=== PATIENT | male | born 1960 | race Caucasian/White ===

== ENCOUNTER 2016-04-21 06:32 | Inpatient (IN) | payer OTHER ==
[~2016-04-21] VITALS: Ht 162.6 cm; Wt 77.8 kg
[~2016-04-21 06:32] MED LIST: BUSP5 PO; CEPH500 PO; CITA20 PO; DILA2TAB2 PO; IBUP600T26 PO; OXYC-68 PO; SIMV10 PO
[2016-04-21 06:54] VITALS: BP 146/85; PULSE 104; RESP 20; TEMP 98.1; O2SAT 95
[2016-04-21 07:29] LABS: AUTOMATED NEUTROPHIL # 5.5 TH/MM3 (1.8-7.7); BASOPHIL # 0.1 TH/MM3 (0-0.2); BASOPHIL % 0.3 % (0.0-2.0); EOSINOPHIL # 0.1 TH/MM3 (0-0.4); EOSINOPHIL % 0.4 % (0.0-4.0); HEMATOCRIT 46.6 % (39.0-51.0); LYMPH % 71.1 % (9.0-44.0); LYMPHOCYTE # 14.9 TH/MM3 (1.0-4.8); MEAN CELL VOLUME 92.9 FL (80.0-100.0); MEAN CORPUSCULAR HEMOGLOBIN 31.4 PG (27.0-34.0); MEAN CORPUSCULAR HGB CONC 33.7 % (32.0-36.0); MONO % 1.9 % (0.0-8.0); NEUT % 26.3 % (16.0-70.0); PLATELET COUNT 54 TH/MM3 (150-450); RED BLOOD COUNT 5.02 MIL/MM3 (4.50-5.90); RED CELL DISTRIBUTION WIDTH 14.9 % (11.6-17.2)
[2016-04-21] MEDS ORDERED: SODIUM CHLOR 0.9% 1000 ML INJ 1,000 ML IV ONE (07:30)
[2016-04-21 07:34] LABS: HEMO FLAGS AUTO DIFF
[2016-04-21 07:46] LABS: ALT (GPT) 41 U/L (12-78); ANION GAP 13 MEQ/L (5-15); AST (GOT) 34 U/L (15-37); BICARBONATE 22.5 MEQ/L (21.0-32.0); BLOOD UREA NITROGEN 8 MG/DL (7-18); CHLORIDE 100 MEQ/L (98-107); GLOMERULAR FILTRATION RATE 98 ML/MIN (>89); SODIUM (NA) 135 MEQ/L (136-145)
[2016-04-21 07:49] LABS: ALKALINE PHOSPHATASE 81 U/L (45-117); TOTAL BILIRUBIN ADULT 0.6 MG/DL (0.2-1.0)
[2016-04-21 07:51] LABS: AMPHETAMINE, URINE NEG (NEG); BARBITURATES, URINE NEG (NEG); COCAINE, URINE NEG (NEG)
--- NOTE | 2016-04-21 08:21 | PD ---
HPI Chief Complaint: Suicide Ideation/Attempt Time Seen by Provider: 06:59 Travel History International Travel<30 days: No Contact w/Intl Traveler<30days: No Traveled to known affect area: No History of Present Illness HPI 56-year-old male came to the emergency room for intentional overdosing on a bunch of Percocet and Dilaudid last night along with alcohol with the intention of never waking up. Patient recently was asked to leave his girlfriend's house. Patient is very depressed and does not want to be homeless again and hence he did this act. He continues to feel the same way. He was slightly tachycardic in triage. Denies any drug abuse history. He is otherwise relatively healthy. Patient denies of any auditory hallucinations or homicidal ideations. Patient has not been taking any medications currently. [facility] Past Medical History Narrative Medical List of his past medical, surgical, social and family history is reviewed from the nursing note. Autoimmune Disease: No Anxiety: Yes Depression: Yes Heart Rhythm Problems: Yes (wps) Cancer: No High Cholesterol: No Diabetes: Yes (BORDERLINE DIABETIC) Patient Takes Glucophage: No Endocrine: Yes Gastrointestinal Disorders: No Genitourinary: Yes (Left sided hydronephrosis) Hiatal Hernia: Yes Hypertension: Yes Immune Disorder: No Implanted Vascular Access Dvce: No Musculoskeletal: No Neurologic: No Psychiatric: Yes Reproductive: No Respiratory: No Renal Failure: Yes Influenza Vaccination: No Past Surgical History Abdominal Surgery: Yes (UMBILICAL REPAIR) Gynecologic Surgery: Yes (urostomy placement 2014) Tonsillectomy: Yes Other Surgery: Yes (NEPHROSTOMY) Social History Alcohol Use: Yes (BINGED LAST DAY) Tobacco Use: Yes (18 CIGS/DAY) Substance Use: No Allergies-Medications (Allergen,Severity, Reaction): Coded Allergies: No Known Allergies (Unverified , 03/06/15) Comments No known drug allergies. Reported Meds & Prescriptions Reported Meds & Active Scripts Active No Active Prescriptions or Reported Medications Narrative Medication Awaiting for the nurse to update the medical reconciliation list. Review of Systems Except as stated in HPI: all other systems reviewed are Neg Physical Exam Narrative GENERAL: Awake, alert, flat affect, no obvious distress SKIN: Warm and dry. HEAD: Atraumatic. Normocephalic. EYES: Pupils equal and round. No scleral icterus. No injection or drainage. ENT: No nasal bleeding or discharge. Mucous membranes pink and moist. NECK: Trachea midline. No JVD. CARDIOVASCULAR: Regular rate and rhythm. No murmur appreciated. RESPIRATORY: No accessory muscle use. Clear to auscultation. Breath sounds equal bilaterally. GASTROINTESTINAL: Abdomen soft, non-tender, nondistended. Hepatic and splenic margins not palpable. MUSCULOSKELETAL: No obvious deformities. No clubbing. No cyanosis. No edema. NEUROLOGICAL: Awake and alert. No obvious cranial nerve deficits. Motor grossly within normal limits. Normal speech. PSYCHIATRIC: Appropriate mood and affect; insight and judgment normal. Obviously depressed Data Data Last Documented VS Vital Signs Date Time Temp Pulse Resp B/P Pulse Ox O2 Delivery O2 Flow Rate FiO2 04/21/16 12:50 97.3 110 20 154/83 96 Room Air Orders Complete Blood Count With Diff (04/21/16 06:59) Comprehensive Metabolic Panel (04/21/16 06:59) Psych Screen (04/21/16 06:59) Drug Screen, Random Urine (04/21/16 06:59) Alcohol (Ethanol) (04/21/16 06:59) Salicylates (Aspirin) (04/21/16 07:24) Tylenol (Acetaminophen) (04/21/16 07:24) Sodium Chlor 0.9% 1000 Ml Inj (Ns 1000 M (04/21/16 07:30) Urinalysis - C+S If Indicated (04/21/16 08:13) Chest, Single Ap (04/21/16 ) Electrocardiogram (04/21/16 ) Tylenol (Acetaminophen) (04/21/16 10:45) Salicylates (Aspirin) (04/21/16 10:45) Admit Order (Ed Use Only) (04/21/16 ) Admit To Inpatient Psych (04/21/16 ) Code Status (04/21/16 15:10) Vital Signs (Adult) [place].Q12H.E (04/21/16 15:10) Activity Oob Ad Suzi (04/21/16 15:10) Level Of Observation (Psych) (04/21/16 15:10) Acetaminophen (Tylenol) (04/21/16 15:15) Magnesium Hydroxide Liq (Milk Of Magnesi (04/21/16 15:15) Al-Mag Hy-Si 40-40-4 Mg/Ml Liq (Mag-Al P (04/21/16 15:15) Nicotine 21 Mg Patch.24 Hr (Habitrol 21 (04/21/16 15:15) Basic Metabolic Panel (Bmp) (04/22/16 06:00) Lipid Profile (04/22/16 06:00) Hemoglobin (Hgb) A1c (04/22/16 06:00) Remove Old Patch (04/22/16 09:00) Labs Laboratory Tests Test 04/21/16 04/21/16 04/21/16 07:12 07:30 09:50 White Blood Count 21.0 TH/MM3 Red Blood Count 5.02 MIL/MM3 Hemoglobin 15.7 GM/DL Hematocrit 46.6 % Mean Corpuscular Volume 92.9 FL Mean Corpuscular Hemoglobin 31.4 PG Mean Corpuscular Hemoglobin 33.7 % Concent Red Cell Distribution Width 14.9 % Platelet Count 54 TH/MM3 Mean Platelet Volume 7.7 FL Neutrophils (%) (Auto) 26.3 % Lymphocytes (%) (Auto) 71.1 % Monocytes (%) (Auto) 1.9 % Eosinophils (%) (Auto) 0.4 % Basophils (%) (Auto) 0.3 % Neutrophils # (Auto) 5.5 TH/MM3 Lymphocytes # (Auto) 14.9 TH/MM3 Monocytes # (Auto) 0.4 TH/MM3 Eosinophils # (Auto) 0.1 TH/MM3 Basophils # (Auto) 0.1 TH/MM3 CBC Comment AUTO DIFF Differential Total Cells 100 Counted Neutrophils % (Manual) 22 % Lymphocytes % 75 % Monocytes % 1 % Basophils % 2 % Neutrophils # (Manual) 4.6 TH/MM3 Differential Comment FINAL DIFF MANUAL Smudge Cells PRESENT Platelet Estimate LOW Platelet Morphology Comment NORMAL Sodium Level 135 MEQ/L Potassium Level 4.0 MEQ/L Chloride Level 100 MEQ/L Carbon Dioxide Level 22.5 MEQ/L Anion Gap 13 MEQ/L Blood Urea Nitrogen 8 MG/DL Creatinine 0.81 MG/DL Estimat Glomerular Filtration 98 ML/MIN Rate Random Glucose 137 MG/DL Calcium Level 8.2 MG/DL Total Bilirubin 0.6 MG/DL Aspartate Amino Transf 34 U/L (AST/SGOT) Alanine Aminotransferase 41 U/L (ALT/SGPT) Alkaline Phosphatase 81 U/L Total Protein 7.2 GM/DL Albumin 3.5 GM/DL Acetaminophen Level LESS THAN 2.0 LESS THAN 2.0 MCG/ML MCG/ML Ethyl Alcohol Level 133 MG/DL Urine Color LIGHT-YELLOW Urine Turbidity CLEAR Urine pH 5.5 Urine Specific [place] 1.006 Urine Protein NEG mg/dL Urine Glucose (UA) 70 mg/dL Urine Ketones NEG mg/dL Urine Occult Blood NEG Urine Nitrite NEG Urine Bilirubin NEG Urine Urobilinogen LESS THAN 2.0 MG/DL Urine Leukocyte Esterase NEG Urine RBC LESS THAN 1 /hpf Urine WBC 1 /hpf Microscopic Urinalysis Comment CULT NOT INDICATED Salicylates Level 4.1 MG/DL 3.0 MG/DL Urine Opiates Screen NEG Urine Barbiturates Screen NEG Urine Amphetamines Screen NEG Urine Benzodiazepines Screen NEG Urine Cocaine Screen NEG Urine Cannabinoids Screen NEG MDM Medical Decision Making Medical Screen Exam Complete: Yes Emergency Medical Condition: Yes Medical Record Reviewed: Yes Interpretation(s) Twelve-lead EKG was reviewed by me. Normal sinus rhythm, normal axis, tachycardia, nonspecific ST-T wave changes. Heart rate of 104 bpm. Differential Diagnosis Suicidal ideation, major depression, attempted suicide by overdose Narrative Course 8:19 AM the test results are back and patient has leukocytosis with no bandemia. Patient is afebrile and hence I am unsure about the etiology of the leukocytosis. Chemistry was within normal limits. Drug screen was negative and Tylenol and salicylate levels were within normal limits. Alcohol level is elevated. I will have the nurse call poison control in order to get the timeframe for medical clearance. Eventually patient will need to be seen by psych and be admitted for the suicidal ideations. I've given him 1 L of IV fluid bolus. Patient has a sitter. 10:37 AM as per poison control patient should be observed for 4 hours and a repeat Tylenol and salicylate levels in 4 hours. There is one pending at 10:45 AM. If that is within normal limit patient will be medically cleared. Procedures EKG Prior to Arrival: No Diagnosis Primary Impression: Major depression Qualified Code: F33.2 - Severe episode of recurrent major depressive disorder , without psychotic features Additional Impression: Overdose Qualified Code: T50.902A - Overdose, intentional self-harm, initial encounter Scripts No Active Prescriptions or Reported Meds Regis Ulrich MD Apr 21, 2016 08:21
[2016-04-21 08:51] LABS: BASOPHILS 2 % (0-2); NEUTROPHIL # MANUAL DIFF 4.6 TH/MM3 (1.8-7.7); PLATELET ESTIMATE SMEAR LOW (NORMAL); PLATELET MORPHOLOGY NORMAL (NORMAL); POLYS (SEG NEUTROPHILS) 22 % (16-70); SCAN/DIFF FINAL DIFF MANUAL; SMUDGE CELLS PRESENT PRESENT; WBC DIFF SAMPLE 100
[2016-04-21 08:59] LABS: BLOOD, URINE NEG (NEG); COMMENT (UR) CULT NOT INDICATED; CULTURE IF INDICATED CULT NOT INDICATED; GLUCOSE,URINE 70 mg/dL (NEG); KETONE, URINE NEG (NEG); NITRITE,URINE NEG (NEG); PH, URINE 5.5 (5.0-8.5); URINE COLOR LIGHT-YELLOW (YELLW/STRAW)
--- NOTE | 2016-04-21 08:59 | RADRPT ---
EXAM DATE/TIME: 04/21/2016 08:30 [facility] COMPARISON: No previous studies available for comparison. INDICATIONS : Patient states he was trying to commit suicide last night. He has had back pain for seven months. MEDICAL HISTORY : Renal failure, chronic. Hypertension. Diabetes mellitus type 2. SURGICAL HISTORY : Left side renal drain. ENCOUNTER: Initial ACUITY: 1 day PAIN SCORE: 2/10 LOCATION: L-spine FINDINGS: A single view of the chest demonstrates the lungs to be symmetrically aerated without evidence of mas s, infiltrate or effusion. The cardiomediastinal contours are unremarkable. Osseous structures are intact. CONCLUSION: No acute disease. Omar Cote MD on April 21, 2016 at 8:56 Board Certified Radiologist. This report was verified electronically.
[2016-04-21 12:50] VITALS: BP 154/83; PULSE 110; RESP 20; TEMP 97.3; O2SAT 96
--- NOTE | 2016-04-21 15:10 | PD ---
History of Present Illness Chief Complaint: Suicide Ideation/Attempt Time Seen by Provider: 14:25 Travel History International Travel<30 Days: No Contact w/Intl Traveler<30days: No Known affected area: No Legal Status Legal Status: Caba Act Caba Act Signed By: Trevin Caba Act Comment: BA signed by: ARNULFO LANDAVERDE Badge#[id number], Case#[id number], , [id number] History of Present Illness: History of Present Illness HPI 56-year-old male with a reported history of anxiety and depression who presents under a BA initiated by ARNULFO. As per the BA report; Flor stated that he wanted to kill himself due to being kicked out of his residence. He state he took a bunch of sleeping pills as well as alcohol with the intention of never waking up" . On arrival to Ed he presented with BAL of 133. He was medically cleared and has been monitored in [facility]. he has not presented any behavioral concerns or any suicidality. As per EMR review he has not had previous contact with [facility] psychiatry department. Patient is awake . Alert and oriented male who appears stated age. He is dressed in [facility] and his hygiene is fair.Affect is restricted. Speech is clear and logical. Mood is depressed with expressed hopelessness regarding his future. There is no reported hallucinations, delusions or paranoia. Sleeping well. Low level of energy. Concentration and attention are not impaired. He also verbalizes his regret at this failed suicidal attempt which he had been planning for 2 days after his girlfriend asked him to leave the house and he became homeless. Other stressors include loosing his job after his car broke down. His stepmother who lives in the area told him that she did not have any space in her home for him. In terms of psychiatric history he received treatment at the [facility] for approximately one year . he does not remember the name of the medications he was prescribed. he stopped treatment 6 months ago because he felt better. Denies previous suicide attempt. PFSH Past Medical History Autoimmune Disease: No Anxiety: Yes Depression: Yes Heart Rhythm Problems: Yes (wps) Cancer: No High Cholesterol: No Diabetes: Yes (BORDERLINE DIABETIC) Patient Takes Glucophage: No Endocrine: Yes Gastrointestinal Disorders: No Genitourinary: Yes (Left sided hydronephrosis) Hiatal Hernia: Yes Hypertension: Yes Immune Disorder: No Implanted Vascular Access Dvce: No Musculoskeletal: No Neurologic: No Psychiatric: Yes Reproductive: No Respiratory: No Renal Failure: Yes Influenza Vaccination: No Past Surgical History Abdominal Surgery: Yes (UMBILICAL REPAIR) Gynecologic Surgery: Yes (urostomy placement 2014) Tonsillectomy: Yes Other Surgery: Yes (NEPHROSTOMY) Psychiatric History Psychiatric History Hx Psychiatric Treatment: Says he has been seen by the [facility] in the past in [facility]. History of Inpatient Treatment: No Guns or firearms in home: No Social History Born in [place]. Moved to [place] as a teenager. Served 3 and half years in the [employer]. several years ago. 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 Most recently was working at [employer] in [employer]. He has no children. Hx Alcohol Use: Yes (BINGED LAST DAY) Hx Tobacco Use: Yes (18 CIGS/DAY) Hx Substance Use: Yes (Alcohol) Substance Use Type: Alcohol (Long hx of alcohol abuse. Had been sober x 2 years. ) Hx of Substance Use Treatment: Yes Allergies-Medications (Allergen,Severity, Reaction): Coded Allergies: No Known Allergies (Unverified , 03/06/15) Reported Meds & Prescriptions Reported Meds & Active Scripts Active No Active Prescriptions or Reported Medications Review of Systems Except as stated in HPI: all other systems reviewed are Neg Psychiatric: COMPLAINS OF: Depression, Suicidal Ideation Exam Alert: Yes [place]: Person (ox4) Mood: Depressed Affect: Restricted Speech: Clear, Logical Eye Contact: Indirect Memory Intact: Comment (no gross abnormality) Hallucinations: Other (negative) Delusions: No Suicidal: Ideation (taking opills with ETOH. ) Homicidal: Ideation (negative) Insight/Judgement poor. poor MDM Medical Decision Making Medical Record Reviewed: Yes Assessment/Plan 56 year old male under a BA after he took sleeping pills as well as alcohol with intent to never wake up. This morning he continues to endorse suicidal ideation as well as regret for not having . He nevertheless accepts treatment at this time. He remains under a BA. Recommend inpatient psychiatric hospitalization to maintain safety, initiate medications and stabilize mood. Orders Complete Blood Count With Diff (04/21/16 06:59) Comprehensive Metabolic Panel (04/21/16 06:59) Psych Screen (04/21/16 06:59) Drug Screen, Random Urine (04/21/16 06:59) Alcohol (Ethanol) (04/21/16 06:59) Salicylates (Aspirin) (04/21/16 07:24) Tylenol (Acetaminophen) (04/21/16 07:24) Sodium Chlor 0.9% 1000 Ml Inj (Ns 1000 M (04/21/16 07:30) Urinalysis - C+S If Indicated (04/21/16 08:13) Chest, Single Ap (04/21/16 ) Electrocardiogram (04/21/16 ) Tylenol (Acetaminophen) (04/21/16 10:45) Salicylates (Aspirin) (04/21/16 10:45) Diet Regular Basic (04/21/16 Lunch) Results Vital Signs Date Time Temp Pulse Resp B/P Pulse Ox O2 Delivery O2 Flow Rate FiO2 04/21/16 12:50 97.3 110 20 154/83 96 Room Air 04/21/16 06:54 98.1 104 20 146/85 95 Room Air Laboratory Tests Test 04/21/16 04/21/16 04/21/16 07:12 07:30 09:50 White Blood Count 21.0 Red Blood Count 5.02 Hemoglobin 15.7 Hematocrit 46.6 Mean Corpuscular Volume 92.9 Mean Corpuscular Hemoglobin 31.4 Mean Corpuscular Hemoglobin 33.7 Concent Red Cell Distribution Width 14.9 Platelet Count 54 Mean Platelet Volume 7.7 Neutrophils (%) (Auto) 26.3 Lymphocytes (%) (Auto) 71.1 Monocytes (%) (Auto) 1.9 Eosinophils (%) (Auto) 0.4 Basophils (%) (Auto) 0.3 Neutrophils # (Auto) 5.5 Lymphocytes # (Auto) 14.9 Monocytes # (Auto) 0.4 Eosinophils # (Auto) 0.1 Basophils # (Auto) 0.1 CBC Comment AUTO DIFF Differential Total Cells 100 Counted Neutrophils % (Manual) 22 Lymphocytes % 75 Monocytes % 1 Basophils % 2 Neutrophils # (Manual) 4.6 Differential Comment FINAL DIFF MANUAL Smudge Cells PRESENT Platelet Estimate LOW Platelet Morphology Comment NORMAL Sodium Level 135 Potassium Level 4.0 Chloride Level 100 Carbon Dioxide Level 22.5 Anion Gap 13 Blood Urea Nitrogen 8 Creatinine 0.81 Estimat Glomerular Filtration 98 Rate Random Glucose 137 Calcium Level 8.2 Total Bilirubin 0.6 Aspartate Amino Transf 34 (AST/SGOT) Alanine Aminotransferase 41 (ALT/SGPT) Alkaline Phosphatase 81 Total Protein 7.2 Albumin 3.5 Acetaminophen Level LESS THAN 2.0 LESS THAN 2.0 Ethyl Alcohol Level 133 Urine Color LIGHT-YELLOW Urine Turbidity CLEAR Urine pH 5.5 Urine Specific [place] 1.006 Urine Protein NEG Urine Glucose (UA) 70 Urine Ketones NEG Urine Occult Blood NEG Urine Nitrite NEG Urine Bilirubin NEG Urine Urobilinogen LESS THAN 2.0 Urine Leukocyte Esterase NEG Urine RBC LESS THAN 1 Urine WBC 1 Microscopic Urinalysis Comment CULT NOT INDICATED Salicylates Level 4.1 3.0 Urine Opiates Screen NEG Urine Barbiturates Screen NEG Urine Amphetamines Screen NEG Urine Benzodiazepines Screen NEG Urine Cocaine Screen NEG Urine Cannabinoids Screen NEG Diagnosis Primary Impression: Major depression Additional Impression: Overdose Admitting Information Admitting Physician Requests: Admit (Dr. Langston) Prescriptions No Active Prescriptions or Reported Meds Problem Qualifiers Primary Impression: Major depression Qualified Code: F33.2 - Severe episode of recurrent major depressive disorder , without psychotic features Additional Impression: Overdose Qualified Code: T50.902A - Overdose, intentional self-harm, initial encounter Mimi Zuñiga Apr 21, 2016 15:10
[2016-04-21] MEDS ORDERED: ACETAMINOPHEN 325 MG TAB PO PRN (15:15)
[2016-04-21] MEDS ORDERED: MAGNESIUM HYDROXIDE SUSP 30 ML CUP PO PRN (15:15)
[2016-04-21] MEDS ORDERED: ALUMINUM/MAGNESIUM/SIMETH 30 ML CUP PO PRN (15:15)
[2016-04-21] MEDS: NICOTINE 21 MG/24 HR PATCH T-DERMAL SCH (15:50)
[2016-04-21 16:28] VITALS: BP 149/78; PULSE 100; RESP 16; TEMP 97.8; O2SAT 94
[2016-04-21] MEDS ORDERED: FLUMAZENIL 0.5 MG/5 ML VIAL IV PUSH PRN (17:00)
[2016-04-21] MEDS ORDERED: LORazepam 2 MG/ML VIAL IM PRN ×4 (17:00)
[2016-04-21] MEDS ORDERED: LORazepam 1 MG TAB PO PRN (17:00)
[2016-04-21] MEDS ORDERED: LORazepam 2 MG TAB PO PRN (17:00)
[2016-04-21 20:06] VITALS: BP 134/83; PULSE 88; RESP 16; TEMP 97.7; O2SAT 98
[2016-04-22 05:39] VITALS: BP 118/71; PULSE 88; RESP 18; TEMP 97.6; O2SAT 95
[2016-04-22] MEDS: NICOTINE 21 MG/24 HR PATCH T-DERMAL SCH (09:00)
[2016-04-22] MEDS: REMOVE OLD PATCH T-DERMAL SCH (09:00)
[2016-04-22] MEDS: THIAMINE HCL 100 MG TAB PO SCH (09:20)
[2016-04-22] MEDS: FOLIC ACID 1 MG TAB PO SCH (09:20)
[2016-04-22 09:39] LABS: ANION GAP 8 MEQ/L (5-15); BICARBONATE 24.4 MEQ/L (21.0-32.0); BLOOD UREA NITROGEN 11 MG/DL (7-18); CHLORIDE 106 MEQ/L (98-107); GLOMERULAR FILTRATION RATE 80 ML/MIN (>89); POTASSIUM 4.3 MEQ/L (3.5-5.1); SODIUM (NA) 138 MEQ/L (136-145)
[2016-04-22 09:41] LABS: HDL CHOLESTEROL 50.5 MG/DL (40.0-60.0); LDL CHOLESTEROL 54 MG/DL (0-99)
--- NOTE | 2016-04-22 10:03 | HHI.HP ---
Provisional Diagnosis Admission Date Apr 21, 2016 at 15:14 [facility] I. Major depression chronic recurrent status post overdose [facility]. Passive-dependent trait [facility] III. Please see the emergency room evaluation history of back pain [facility] IV. Moderate stress difficulty coping [facility] V. GAF of 45 Certification of Person's Competence To Provide Express and Informed Consent I have personally examined Flor Sheldon , a person being served at [facility] on, Apr 22, 2016 09:55. Express and informed consent means consent voluntarily given in writing, by a competent person, after sufficient explanation and disclosure of the subject matter involved to enable the person to make a knowing and willful decision without any element of force, fraud, deceit, duress, or other form of constraint or coercion. This person is 18 years of age or older, is not now known to be incompetent to consent to treatment with a guardian advocate, and does not have a health care surrogate or proxy currently making medical treatment decisions. I have found this person to be one of the following: [x] Competent to provide express and informed consent, as defined above, for voluntary admission to this facility and is competent to provide express and informed consent for treatment. He/she has the consistent capacity to make well reasoned, willful, and knowing decisions concerning his or her medical or mental health treatment. The person fully and consistently understands the purpose of the admission for examination/placement and is fully capable of personally exercising all rights assured under [place] [] Incompetent to provide express and informed consent to voluntary admission, and this is incompetent to provide express and informed consent to treatment. The person must be transferred to involuntary status and a petition for a guardian advocate filed with the Circuit Court. [] Refusing to provide express and informed consent to voluntary admission but is competent to provide express and informed consent for treatment. The person must be discharged or transferred to involuntary status. Form shall be completed within 24 hours of a person's arrival at the receiving facility and filed in the clinical record of each person: 1. Admitted on a voluntary basis 2. Permitted to provide express and informed consent to his/her own treatment 3. Allowed to transfer from involuntary to voluntary status 4. Prior to permitting a person to consent to his or her own treatment after having been previously found incompetent to consent to treatment. History of Present Illness Capacity: Has Capacity HPI This is a 56-year-old white male who claimed that he has been feeling depressed for the last several months. He was kicked out of his residence. He also has a back pain his kidney was removed he also broke up with his girlfriend. He has no place to go to he has no car he might lose his job he cannot go back and forth to work. He has been sleeping okay but his appetite is down and at that point he decided to end his misery and drank along with that he took overdose on painkillers. He is unhappy that he is still alive. But he feels safe in the hospital and [facility]. No behavior or management problem reported. He is compliant in taking medication and willing to sign voluntary Review of Systems Except as stated in HPI: all other systems reviewed are Neg Musculoskeletal: COMPLAINS OF: Muscle aches, Back pain Psychiatric: COMPLAINS OF: Anxiety, Mood changes, Depression Past Psych History Psychological trauma history Patient denied any physical verbal or sexual abuse growing up Violence risk - others (6 mos) Denied any violence Violence risk - self (6 mos) Patient felt like wanting to end his life and wanted to overdose with pain killer and alcohol Substance Abuse History Drugs/Alcohol past 12 months Does admit to alcohol abuse he claimed that he was sober for 2 years Past Family Social History Coded Allergies: No Known Allergies (Unverified , 03/06/15) No Active Prescriptions or Reported Meds Current Medications Medications (Trade) Dose Ordered Sig/Clemente Route Start Time Stop Time Status Last Admin (Tylenol) 650 mg Q4H PRN PO 04/21/16 15:15 (Milk Of Magnesia Liq) 30 ml DAILY PRN PO 04/21/16 15:15 (Mag-Al Plus Susp Liq) 30 ml Q6H PRN PO 04/21/16 15:15 (Habitrol 21 Mg Patch.24 Hr) 1 patch DAILY T-DERMAL 04/21/16 15:15 04/22/16 09:00 Miscellaneous Information 1 DAILY T-DERMAL 04/22/16 09:00 04/22/16 09:00 (Romazicon Inj) 0.2 mg Q1M PRN IV PUSH 04/21/16 17:00 (Ativan) 1 mg Q4H PRN PO 04/21/16 17:00 04/21/16 18:53 (Ativan Inj) 1 mg Q4H PRN IM 04/21/16 17:00 (Ativan) 2 mg Q2H PRN PO 04/21/16 17:00 (Ativan Inj) 2 mg Q2H PRN IM 04/21/16 17:00 (Ativan Inj) 2 mg Q1H PRN IM 04/21/16 17:00 (Ativan Inj) 2 mg Q15M PRN IM 04/21/16 17:00 (Vitamin B1) 100 mg DAILY PO 04/22/16 09:00 04/22/16 09:20 (Folate) 1 mg DAILY PO 04/22/16 09:00 04/22/16 09:20 Family History Positive for depression and alcoholism Social History Patient was born in [place]. He has 6 sisters. He was close to his stepmother. He denied any physical verbal or sexual abuse growing up his childhood was okay. 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 He was first time at 28 lasted for 4 years no children. Then he was living with her common-law old for 16 years no children and she couple of years ago. Patient had a history of alcohol abuse ever since he was 13 has been in trouble with the law he has been through rehabilitation once he was sober for 2 years and started to drink again. [facility] and [facility]. Patient's Strengths (min. 2) Patient is cooperative willing to sign voluntary and take the medication Physical Exam Please see the emergency room evaluation other than back pain patient denied any other physical problem he was medically clear to be admitted to the psychiatric unit his vital signs are stable Vital Signs Vital Signs Date Time Temp Pulse Resp B/P Pulse Ox O2 Delivery O2 Flow Rate FiO2 04/22/16 05:39 97.6 88 18 118/71 95 04/21/16 12:50 Room Air Mental Status Examination This is a 56-year-old white male who looks about the same as his stated age was alert oriented 3 cooperative casually dressed his speech was slow without any evidence of loose associations or flights of ideas or pressure speech his mood was described as feeling depressed frustrated unable to cope with the stress pain not having place to live nowhere to go to his job. He could be reassured he feels safe in the hospital. He denied any auditory or visual hallucinations. Denied any paranoid delusion. He seems to be of low average intelligence with poor recent memory his insight is fair and his judgment seems to be okay on hypothetical situation. His concentration is okay his language is okay are normal his fund of knowledge is average and his gait is normal Assessment & Plan Problem List: (1) Major depression ICD Code: F32.9 Assessment & Plan Estimated LOS: 5 days. This is a 56-year-old white male who was admitted following overdose on pain killer and alcohol. Has been feeling depressed we'll stabilize him on the medication is willing [facility] Admit observe evaluate and treatment. He will participate in all the therapeutic activity on the floor. We will start him on Cymbalta We will assess social work nurse to assist in aftercare and discharge planning. Patient is willing to sign voluntary. Vital signs every shift. Medical consult for pain management. Request HC Surrog/Guard Advoc?: No Problem Qualifiers (1) Major depression: Qualified Code: F33.2 - Severe episode of recurrent major depressive disorder, without psychotic features Nhan Duong MD Apr 22, 2016 10:03
[2016-04-22] MEDS ORDERED: busPIRone HCL 10 MG TAB PO PRN (10:15)
[2016-04-22 11:44] LABS: AUTOMATED NEUTROPHIL # 4.9 TH/MM3 (1.8-7.7); BASOPHIL % 0.2 % (0.0-2.0); EOSINOPHIL # 0.1 TH/MM3 (0-0.4); EOSINOPHIL % 0.7 % (0.0-4.0); HEMATOCRIT 45.3 % (39.0-51.0); LYMPH % 48.2 % (9.0-44.0); LYMPHOCYTE # 4.9 TH/MM3 (1.0-4.8); MEAN CELL VOLUME 93.3 FL (80.0-100.0); MEAN CORPUSCULAR HEMOGLOBIN 31.5 PG (27.0-34.0); MEAN CORPUSCULAR HGB CONC 33.7 % (32.0-36.0); MONO % 3.1 % (0.0-8.0); NEUT % 47.8 % (16.0-70.0); PLATELET COUNT 44 TH/MM3 (150-450); RED BLOOD COUNT 4.86 MIL/MM3 (4.50-5.90); RED CELL DISTRIBUTION WIDTH 14.7 % (11.6-17.2); WHITE BLOOD COUNT 10.2 TH/MM3 (4.0-11.0)
[2016-04-22 11:47] LABS: HEMO FLAGS AUTO DIFF
[2016-04-22 13:26] LABS: HEMOGLOBIN A1a 1.1 %; HEMOGLOBIN A1b 1.7 %; HEMOGLOBIN Ao 84.1 %; HEMOGLOBIN LA1C 2.2 %; HEMOGLOBIN P3 3.9 %
[2016-04-22] MEDS: CYCLOBENZAPRINE HCL 10 MG TAB PO SCH ×2 (14:00→21:15)
[2016-04-22 14:16] LABS: BANDS 10 % (0-6); EOSINOPHILS 1 % (0-4); NEUTROPHIL # MANUAL DIFF 4.6 TH/MM3 (1.8-7.7); PLATELET ESTIMATE SMEAR LOW (NORMAL); PLATELET MORPHOLOGY NORMAL (NORMAL); POLYS (SEG NEUTROPHILS) 35 % (16-70); SCAN/DIFF FINAL DIFF MANUAL; WBC DIFF SAMPLE 100
[2016-04-22] MEDS: DULoxetine HCl DR 60 MG CAP PO SCH (14:23)
[2016-04-22] MEDS: ACETAMINOPHEN/HYDROcodone 325 MG/10 MG TAB PO PRN ×2 (14:24→21:16)
--- NOTE | 2016-04-22 16:17 | PD.CONS ---
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 Patient is currently inpatient psychiatric center we have been consulted for management assistance in management of chronic pain. Patient reports he has had left lower flank pain for the past 7-8 months. Patient reports the pain is getting progressively worse. Patient reports the pain is exacerbated by movements. At home patient had tried taking his girlfriend's pain medication which helped with the pain but he is unsure it was. At this point patient rates the pain 10 out of 10 patient is visibly uncomfortable muscle spasm palpable on exam. Patient does report catching in his breath secondary to pain and limited mobility secondary to pain. Patient also noted to have leukocytosis 21,000 with thrombocytopenia 45. Peripheral smear consistent with lymphoproliferative disease process. Patient denies history of blood disorder. Patient reports he may have lost a little weight but denies significant weight loss. Patient denies chest pain nausea vomiting diarrhea or constipation. 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 Past Surgical History Nephrectomy left Umbilical hernia repair 2014 Reported Medications No Active Prescriptions or Reported Medications Active Ordered Medications Current Medications Medications (Trade) Dose Ordered Sig/Clemente Route Start Time Stop Time Status Last Admin (Tylenol) 650 mg Q4H PRN PO 04/21/16 15:15 (Milk Of Magnesia Liq) 30 ml DAILY PRN PO 04/21/16 15:15 (Mag-Al Plus Susp Liq) 30 ml Q6H PRN PO 04/21/16 15:15 (Habitrol 21 Mg Patch.24 Hr) 1 patch DAILY T-DERMAL 04/21/16 15:15 04/22/16 09:00 Miscellaneous Information 1 DAILY T-DERMAL 04/22/16 09:00 04/22/16 09:00 (Romazicon Inj) 0.2 mg Q1M PRN IV PUSH 04/21/16 17:00 (Ativan) 1 mg Q4H PRN PO 04/21/16 17:00 04/21/16 18:53 (Ativan Inj) 1 mg Q4H PRN IM 04/21/16 17:00 (Ativan) 2 mg Q2H PRN PO 04/21/16 17:00 (Ativan Inj) 2 mg Q2H PRN IM 04/21/16 17:00 (Ativan Inj) 2 mg Q1H PRN IM 04/21/16 17:00 (Ativan Inj) 2 mg Q15M PRN IM 04/21/16 17:00 (Vitamin B1) 100 mg DAILY PO 04/22/16 09:00 04/22/16 09:20 (Folate) 1 mg DAILY PO 04/22/16 09:00 04/22/16 09:20 (Cymbalta Dr) 60 mg DAILY PO 04/22/16 10:15 04/22/16 14:23 (Buspar) 10 mg Q12HR PRN PO 04/22/16 10:15 (Flexeril) 10 mg Q8HR PO 04/22/16 14:00 04/22/16 14:00 ([place] 10-325 Mg) 1 tab Q4H PRN PO 04/22/16 12:45 04/22/16 14:24 ([place] 5-325 Mg) 1 tab Q4H PRN PO 04/22/16 12:45 Family History Father secondary to pancreatic cancer Social History Smokes 2.5 packs per day for 30+ years denies EtOH use or illicit drug use Physical Exam Vital Signs Vital Signs Date Time Temp Pulse Resp B/P Pulse Ox O2 Delivery O2 Flow Rate FiO2 04/22/16 05:39 97.6 88 18 118/71 95 04/21/16 20:06 97.7 88 16 134/83 98 04/21/16 16:28 97.8 100 16 149/78 94 Physical Exam GENERAL: This is a well-nourished, well-developed patient, visibly painful SKIN: No rashes, ecchymoses or lesions. Cool and dry. HEAD: Atraumatic. Normocephalic. No temporal or scalp tenderness. EYES: Extraocular motions intact. No scleral icterus. No injection or drainage. CARDIOVASCULAR: Regular rate and rhythm without murmurs, gallops, or rubs. RESPIRATORY: Clear to auscultation. Breath sounds equal bilaterally. No wheezes , rales, or rhonchi. GASTROINTESTINAL: Abdomen soft, non-tender, nondistended. MUSCULOSKELETAL: Extremities without clubbing, cyanosis, or edema. No joint tenderness, effusion, or edema noted. No calf tenderness. Negative Homans sign bilaterally. NEUROLOGICAL: Awake and alert. no acute. Motor and sensory grossly within normal limits. muscle strength LLE limited due to pain. Normal speech. Laboratory Laboratory Tests Test 04/22/16 08:12 White Blood Count 10.2 Red Blood Count 4.86 Hemoglobin 15.3 Hematocrit 45.3 Mean Corpuscular Volume 93.3 Mean Corpuscular Hemoglobin 31.5 Mean Corpuscular Hemoglobin 33.7 Concent Red Cell Distribution Width 14.7 Platelet Count 44 Mean Platelet Volume 8.4 Neutrophils (%) (Auto) 47.8 Lymphocytes (%) (Auto) 48.2 Monocytes (%) (Auto) 3.1 Eosinophils (%) (Auto) 0.7 Basophils (%) (Auto) 0.2 Neutrophils # (Auto) 4.9 Lymphocytes # (Auto) 4.9 Monocytes # (Auto) 0.3 Eosinophils # (Auto) 0.1 Basophils # (Auto) 0.0 CBC Comment AUTO DIFF Differential Total Cells 100 Counted Neutrophils % (Manual) 35 Band Neutrophils % 10 Lymphocytes % 52 Monocytes % 2 Eosinophils % 1 Neutrophils # (Manual) 4.6 Differential Comment FINAL DIFF MANUAL Platelet Estimate LOW Platelet Morphology Comment NORMAL Red Cell Morphology Comment NORMAL Sodium Level 138 Potassium Level 4.3 Chloride Level 106 Carbon Dioxide Level 24.4 Anion Gap 8 Blood Urea Nitrogen 11 Creatinine 0.97 Estimat Glomerular Filtration 80 Rate Random Glucose 144 Hemoglobin A1c 6.6 Calcium Level 8.2 Triglycerides Level 181 Cholesterol Level 141 LDL Cholesterol 54 HDL Cholesterol 50.5 Cholesterol/HDL Ratio 2.79 Imaging Last Impressions Chest X-Ray 04/21/16 0000 Signed Impressions: Service Date/Time: April 08:30 - CONCLUSION: No acute disease. 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 Patient is currently inpatient psychiatric center we have been consulted for management assistance in management of chronic pain. Patient reports he has had left lower flank pain for the past 7-8 months. Patient reports the pain is getting progressively worse, muscle spasm palpable on exam. Patient also noted to have leukocytosis 21,000 with thrombocytopenia 45. Major depression management per psychiatric team Muscle spasm will start Flexeril 10 mg 3 times a day Lower back pain with radiculopathy Avilla as needed for pain MRI lumbar spine Leukocytosis with thrombocytopenia No signs of infection patient is afebrile, urinalysis reviewed negative for leukocyte esterase, chest x-ray reviewed no acute disease process Consult hematology Diabetes mellitus Hemoglobin A1c 6.6 Will start metformin 500 mg twice a day Accu-Cheks before meals and at bedtime with low-dose sliding scale insulin coverage Change diabetic diet Consult development educator DVT prophylaxis encouraged early ambulation Discussed plan of care with patient and nursing Written by Berta Barcenas, acting as scribe for Dr. Najera on 04/22/16 at 16:16. Attending Statement All or portions of this note were transcribed by scribe Berta Barcenas. I , Dr. Zion Mcgovern personally performed the history, physical exam, and medical decision making; and confirmed the accuracy of the information in the transcribed note. Authenticated by Dr. Zion Mcgovern on 04/22/16 at 16:30 hrs. Berta Barcenas Apr 22, 2016 16:17 Zion Elena MD May 03, 2016 12:21
--- NOTE | 2016-04-22 17:11 | RADRPT ---
EXAM DATE/TIME: 04/22/2016 16:13 [facility] COMPARISON: No previous studies available for comparison. INDICATIONS : Radiculopathy. MEDICAL HISTORY : Renal insufficiency. SURGICAL HISTORY : Nephrectomy, left. Umbilical hernia repair. Tonsillectomy. ENCOUNTER: Subsequent ACUITY: 2 months PAIN SCORE: 8/10 LOCATION: Left lower back. TECHNIQUE: Multiplanar multisequence MRI of the lumbar spine was performed without contrast. FINDINGS: Lumbar spine alignment is normal. Vertebral bodies have normal height. Normal conus terminus near the level of L1/L2. T12-L1: The thecal sac has a normal diameter. No evidence of disc bulge or protrusion. The neural foramina are patent bilaterally. L1-L2: The thecal sac has a normal diameter. No evidence of disc bulge or protrusion. The neural foramina are patent bilaterally. L2-L3: The thecal sac has a normal diameter. No evidence of disc bulge or protrusion. The neural foramina are patent bilaterally. L3-L4: The disc is slightly desiccated but otherwise normal. Very mild bilateral facet osteoarthritis. No fo raminal or spinal stenosis. L4-L5: The disc is slightly desiccated and there is slight loss of height. There is bulging of the disc charisse trisha and mild bilateral facet osteoarthritis. No significant foraminal or spinal stenosis. L5-S1: The disc is desiccated and has moderate loss of height with vacuum phenomena. There is reactive appea ring endplate marrow edema. A small, broad posterior disc osteophyte complex is present. There are mi ld to moderate facet degenerative changes. No significant spinal stenosis. There is mild right and mi ld to moderate left foraminal stenosis. CONCLUSION: 1. Lumbar spine degenerative changes primarily the L5/S1 level where there is mild right and mild to moderate left foraminal stenosis. There is also reactive appearing endplate marrow edema at this leve l. 2. Very mild degenerative changes at L3/L4 and L4/L5 without stenosis. 3. No fracture or subluxation. Arcenio Novoa MD on April 22, 2016 at 17:04 Board Certified Radiologist. This report was verified electronically.
[2016-04-22] MEDS: metFORMIN HCL 500 MG TAB PO SCH (17:53)
--- NOTE | 2016-04-22 18:09 | MB ---
cc: LOREN ALEMAN DATE OF CONSULTATION: 04/22/2016. REASON FOR CONSULTATION: Patient with thrombocytopenia and leukocytosis. CHIEF COMPLAINT: The patient feels depressed. HISTORY OF PRESENT ILLNESS: Mr. Sheldon is a 56-year-old male who is currently in the psychiatric unit. He has multiple social issues. He says that he is currently homeless. He says he recently broke up with his girlfriend. He states that he has a diagnosis of CLL which is currently being monitored. He is a [facility] patient but he does not have regular followup. He does see an [facility]ologist at the [facility]. He was admitted to the hospital by psychiatry. On admission he was found to have WBC of 21, a hemoglobin of 15.7 and platelet count 54,000. A repeat CBC showed a WBC of 10.2, hemoglobin of 15.3 and platelet count of 44,000. His absolute lymphocyte percentage is increased. Peripheral smear was reviewed and this shows substantial population and small to intermediate sized lymphocytes. These features are consistent with chronic lymphoproliferative disorder such as CLL. The patient endorses fatigue but he does not have any constitutional B symptoms. No recurrent infections. No nose bleeds or gum bleeds. REVIEW OF SYSTEMS: A comprehensive 14-point review of systems was completed which is negative except as described in the history of present illness. PAST MEDICAL HISTORY: 1. Depression. 2. Anxiety. 3. Alcohol abuse. 4. Tobacco abuse. PAST SURGICAL HISTORY: None. MEDICATIONS: 1. Cyclobenzaprine 10 milligrams one tablet p.o. q. 8 hours. 2. [place] 10/325 one tablet p.o. q. 4 hours. 3. Cymbalta 60 milligrams one tablet p.o. daily. 4. BuSpar 10 milligrams one tablet p.o. q. 12 hours. 5. Thiamine 100 milligrams one tablet p.o. daily. 6. Folic acid 1 milligram p.o. daily. 7. Ativan 1 milligram p.o. q. 4 hours PRN. 8. Milk of magnesia 30 cc p.o. daily PRN. 9. Nicotine patches. ALLERGIES: NO KNOWN DRUG ALLERGIES. SOCIAL HISTORY: He is a smoker. He drinks alcohol on a regular basis but does not admit to excessive alcohol intake. No illicit drug use. He is homeless. Family History: Reviewed and its non contributory PHYSICAL EXAMINATION: VITAL SIGNS: Blood pressure is 118/71, pulse is in the 80s, temperature is 97.6, 02 saturations are 95% on room air. GENERAL: A well-developed, well-nourished male in no apparent distress. HEAD, EYES, EARS, NOSE, THROAT: Pupils are equal, round and reactive to light. Extraocular muscles intact. No oral lesions. NECK: The neck is supple. No jugular venous distention. No bruits. No lymphadenopathy. CHEST: Clear to auscultation bilaterally. CARDIAC: S1 and S2. Regular rate and rhythm. ABDOMEN: The abdomen is soft, nontender and nondistended. Bowel sounds are present. EXTREMITIES: No edema, erythema or cyanosis. SKIN: Without any petechiae, lesions or bruises. NEUROLOGIC: No focal deficit. PSYCHIATRIC: Anxious, states he is depressed. LABORATORY DATA: Reviewed. IMAGING STUDIES: Chest x-ray showed no acute disease. ASSESSMENT AND PLAN: This is a 56-year-old male with a past medical history of ? CLL, depression, alcohol abuse, history of pyelitis status post nephrostomy tube placement. He has a history of congenitally nonfunctioning hydronephrotic atrophic obstructive left kidney and history of depression. He is currently admitted to the psychiatric unit. I have been consulted to evaluate leukocytosis and thrombocytopenia. 1. Lymphocytosis with thrombocytopenia. Peripheral smear shows characteristics of underlying CLL. I will obtain a flow cytometry which would confirm this diagnosis. No bone marrow biopsy is indicated if he is found to have CLL by flow cytometry. I had a long conversation with the patient. [facility] CLL in many cases does not require any treatment up front and patients are closely monitored over time. I will obtain basic lab workup while he is inpatient and a flow cytometry as stated above. No intervention is needed at this time. He is currently not bleeding and if the platelet count remains stable, no platelet transfusion is indicated. 2. Depression and anxiety. This is being addressed by psychiatry. Thank you for allowing me to participate in the care of this patient. I will continue to follow this patient along. MD KELLIE Buchanan/GRETA /3:06 PM /5:58 PM MTDEve
[2016-04-22 18:32] VITALS: BP 139/80; PULSE 105; RESP 18; TEMP 98; O2SAT 96
--- NOTE | 2016-04-22 20:27 | EKG ---
Date Performed: 04/21/2016 Time Performed: 08:33:42 PTAGE: 56 years EKG: SINUS TACHYCARDIA MARKED RIGHT AXIS DEVIATION ABNORMAL ECG PREVIOUS TRACING : 11/11/2014 10.16 Compared to prior tracing no significant change DOCTOR: Farhat Mascorro Interpretating Date/Time 04/22/2016 20:25:22
[2016-04-23] MEDS: ACETAMINOPHEN/HYDROcodone 325 MG/10 MG TAB PO PRN ×4 (05:37→22:08)
[2016-04-23] MEDS: CYCLOBENZAPRINE HCL 10 MG TAB PO SCH ×3 (05:37→21:03)
[2016-04-23 06:11] VITALS: BP 133/73; PULSE 85; RESP 17; TEMP 98; O2SAT 93
[2016-04-23] MEDS: REMOVE OLD PATCH T-DERMAL SCH (09:00)
[2016-04-23] MEDS: DULoxetine HCl DR 60 MG CAP PO SCH (09:14)
[2016-04-23] MEDS: THIAMINE HCL 100 MG TAB PO SCH (09:14)
[2016-04-23] MEDS: NICOTINE 21 MG/24 HR PATCH T-DERMAL SCH (09:14)
[2016-04-23] MEDS: metFORMIN HCL 500 MG TAB PO SCH ×2 (09:14→17:38)
[2016-04-23] MEDS: FOLIC ACID 1 MG TAB PO SCH (09:14)
[2016-04-23] MEDS ORDERED: GLUCAGON 1 MG/ML VIAL OTHER PRN (09:30)
[2016-04-23] MEDS ORDERED: DEXTROSE 50% IN WATER 50 ML VIAL(D50) IV PUSH PRN (09:30)
[2016-04-23] MEDS: INSULIN ASPART SUPPLEMENTAL SCALE SQ SCH ×3 (10:49→21:00)
--- NOTE | 2016-04-23 12:39 | HHI.PYPN ---
Subjective Remarks Patient was seen and case discussed with nursing. Patient is pleasant but apathetic and blunted during the interview. He remains depressed secondary to various stressors in his life. His girlfriend left him, he is homeless. Denies suicidal ideations or plan. Compliant with medications Objective Alert: Yes [place]: Person (ox4), Place Mood: Depressed Affect: Restricted Memory Intact: Comment (no gross abnormality) Hallucinations: Other (negative) Delusions: No Delusion Type: Other Suicidal: Ideation (taking opills with ETOH. ) Homicidal: Ideation (negative) Insight/Judgement Poor Labs Test 04/23/16 06:52 Haptoglobin 147 MG/DL Lactate Dehydrogenase 110 U/L Vitals/IOs Vital Signs Date Time Temp Pulse Resp B/P Pulse Ox O2 Delivery O2 Flow Rate FiO2 04/23/16 06:11 98.0 85 17 133/73 93 04/21/16 12:50 Room Air Assessment & Plan Problem List: (1) Major depression ICD Code: F32.9 Assessment & Plan Continue current treatment plan Justification for Cont. Inpt. Patient will decompensate in a less restrictive setting Request HC Surrog/Guard Advoc?: No Problem Qualifiers (1) Major depression: Qualified Code: F33.2 - Severe episode of recurrent major depressive disorder, without psychotic features Silvestre Vizcarra DO Apr 23, 2016 12:39
[2016-04-23 18:00] VITALS: BP 150/88; PULSE 99; RESP 18; TEMP 97.7; O2SAT 97
[2016-04-24] MEDS: ACETAMINOPHEN/HYDROcodone 325 MG/10 MG TAB PO PRN ×4 (05:16→21:12)
[2016-04-24] MEDS: CYCLOBENZAPRINE HCL 10 MG TAB PO SCH ×3 (05:16→22:13)
[2016-04-24] MEDS: INSULIN ASPART SUPPLEMENTAL SCALE SQ SCH ×4 (06:21→21:00)
[2016-04-24 06:31] VITALS: BP 140/74; PULSE 91; RESP 18; TEMP 98; O2SAT 93
[2016-04-24] MEDS: REMOVE OLD PATCH T-DERMAL SCH (09:00)
[2016-04-24] MEDS: NICOTINE 21 MG/24 HR PATCH T-DERMAL SCH (09:00)
[2016-04-24] MEDS: FOLIC ACID 1 MG TAB PO SCH (09:36)
[2016-04-24] MEDS: DULoxetine HCl DR 60 MG CAP PO SCH (09:36)
[2016-04-24] MEDS: THIAMINE HCL 100 MG TAB PO SCH (09:36)
[2016-04-24] MEDS: metFORMIN HCL 500 MG TAB PO SCH ×2 (09:36→18:27)
[2016-04-24 10:00] VITALS: BP 121/76; PULSE 86; RESP 17; O2SAT 99
--- NOTE | 2016-04-24 14:48 | HHI.PYPN ---
Subjective Remarks Patient was seen and case discussed with nursing. Patient remains seclusive to self and in bed all day. Says the reason his back pain. He was offered a Lidoderm patch which he refused. Says his mood is "a little better." Denies suicidal ideations intent or plan. Compliant with medications and tolerating them well Objective Alert: Yes [place]: Person (ox4), Place Mood: Depressed Affect: Blunted Memory Intact: Comment (no gross abnormality) Hallucinations: Other (negative) Delusions: No Delusion Type: Other Suicidal: Ideation (taking opills with ETOH. ) Homicidal: Ideation (negative) Insight/Judgement Poor Vitals/IOs Vital Signs Date Time Temp Pulse Resp B/P Pulse Ox O2 Delivery O2 Flow Rate FiO2 04/24/16 10:00 86 17 121/76 99 04/24/16 06:31 98.0 04/21/16 12:50 Room Air Assessment & Plan Problem List: (1) Major depression ICD Code: F32.9 Assessment & Plan Continue current treatment plan Justification for Cont. Inpt. Patient will decompensate in a less restrictive setting Request HC Surrog/Guard Advoc?: No Problem Qualifiers (1) Major depression: Qualified Code: F33.2 - Severe episode of recurrent major depressive disorder, without psychotic features Silvestre Vizcarra DO Apr 24, 2016 14:48
--- NOTE | 2016-04-24 17:00 | MB ---
cc: ANA LAURA DOW M.D. DATE OF CONSULTATION: 04/24/2016. REASON FOR CONSULTATION: Low back pain. HISTORY OF PRESENT ILLNESS: This is a 56-year-old gentleman who appears to be pleasant at this point, although admitted to the psychiatric do 04/21/2016 when he presented for management of his depression and apparently he has also overdosed on pain killers and alcohol. His main complaint at this point is that he has a left paraspinal back pain which is chronic and states this initially started when he had a nephrostomy tube placed which was taken out about a year ago but the tube was in place for several months and even when the tube was taken out, his pain has progressively worsened. At times, it radiates into the posterior thigh but no below the knee. He denies any numbness or paresthesias or weakness or incontinence. He relates that with the pain medications he has received a today this is better controlled. MRI scan lumbar spine was obtained and reveals moderate L5-S1 degenerate disk disease with a mild disk protrusion, although no significant spinal stenosis noted. There is mild left-sided foraminal stenosis noted. There are some end plate degenerative changes noted also. [facility] and had a diagnosis of chronic lymphocytic leukemia and also has a leukocytosis and thrombocytopenia and has been followed by hematology/oncology. PAST MEDICAL HISTORY: 1. The left nephrectomy. 2. Diabetes mellitus. 3. Chronic lymphocytic leukemia. 4. 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 CURRENT MEDICATIONS: 1. Flexeril 10 milligrams q. 8 hours. 2. Lortab one q. 4 hours PRN. 3. Cymbalta. 4. Thiamine. 5. Folic acid. 6. Nicotine patches. ALLERGIES: NO KNOWN DRUG ALLERGIES. SOCIAL HISTORY: He is . He apparently relates that he gets his care at the [facility]. He smokes about 18 cigarettes a day and drinks alcohol heavily. LABORATORY FINDINGS: White blood cell count 10.2, hemoglobin 15.3, platelet count 44,000. Yesterday his white blood cell count was 21. Sodium was 138, potassium 4.3, BUN 11, creatinine 0.97, glucose 144. Initial toxicology screen was negative, although alcohol level was 133. PHYSICAL EXAMINATION: VITAL SIGNS: Temperature 98, pulse 86, respiratory rate 17, blood pressure 121/76, oxygen is 99% on room air. HEAD: Normocephalic, atraumatic. NECK: Neck is supple. CHEST: Clear to auscultation bilaterally. HEART: Regular rate rhythm, normal S1 and S2. ABDOMEN: Abdomen soft and nontender. EXTREMITIES: No cyanosis or edema. NEUROLOGICAL EXAMINATION: He is awake, alert. He is lying in bed and does not appear to be in any distress at this time. Cranial nerves are grossly intact. Motor strength in the upper and lower extremities is 5/5. Normal sensation. Negative Babinski. He does not have any tenderness on lumbar spine to palpation although relates pain on the left paraspinal aspect. IMPRESSION: Chronic low back pain more focused on left paraspinal aspect with occasional radiation to the posterior thigh. This has been worse over past year and he relates this is the site of the previous nephrostomy tube placement. He does have moderate L5-S1 degenerative disc disease with end plate changes, although no significant stenosis is noted. PLAN: 1. The patient does not require any neurosurgical intervention. 2. Recommend outpatient physical therapy for his lumbar spine as well as continued pain management. 3. Followup at [facility]. MD HARLEY Dumont/GRETA /1:42 PM /3:50 PM
[2016-04-24 18:10] VITALS: BP 135/79; PULSE 90; RESP 18; TEMP 97.3; O2SAT 94
[2016-04-24 20:26] VITALS: BP 148/77; PULSE 72; RESP 17; TEMP 97.3; O2SAT 98
[2016-04-25 05:14] VITALS: BP 133/77; PULSE 92; RESP 16; TEMP 99.8; O2SAT 95
[2016-04-25] MEDS: CYCLOBENZAPRINE HCL 10 MG TAB PO SCH ×3 (06:09→13:03)
[2016-04-25] MEDS: INSULIN ASPART SUPPLEMENTAL SCALE SQ SCH ×4 (06:23→21:00)
[2016-04-25] MEDS: ACETAMINOPHEN/HYDROcodone 325 MG/10 MG TAB PO PRN ×3 (06:28→23:07)
[2016-04-25] MEDS: REMOVE OLD PATCH T-DERMAL SCH (09:00)
[2016-04-25] MEDS: NICOTINE 21 MG/24 HR PATCH T-DERMAL SCH (09:46)
[2016-04-25] MEDS: FOLIC ACID 1 MG TAB PO SCH (09:47)
[2016-04-25] MEDS: THIAMINE HCL 100 MG TAB PO SCH (09:47)
[2016-04-25] MEDS: DULoxetine HCl DR 60 MG CAP PO SCH (09:47)
[2016-04-25] MEDS: metFORMIN HCL 500 MG TAB PO SCH ×2 (09:47→17:15)
[2016-04-25] MEDS: ACETAMINOPHEN/HYDROcodone 325 MG/5 MG TAB PO PRN (12:07)
--- NOTE | 2016-04-25 14:22 | HHI.PYPN ---
Subjective Remarks I am assuming care of this patient from Dr. Duong. Patient seen and examined. Chart reviewed. I note that patient's group participation is poor. Case discussed with nursing staff. On my examination today, the patient is laying in bed. He appears to be in no significant physical distress. He says that "mentally, I'm getting better." He says that his mood is improving and his anxiety level is lessening. He denies any suicidal or homicidal ideation. He denies any audiovisual hallucinations, and I can elicit no delusional beliefs. He denies any side effects from his Cymbalta and is pleased with the current dose. He is not interested in further psychotropic medication adjustments. He is presently without stable housing, and he says that this was the main precipitant for his presenting ingestion: he relates that he had been feeling fine from a mood standpoint, and then within 18 hours of losing his housing he made his ingestion. He does say that his patient case manager, Chadwick, from [facility] is working on getting him into the domiciliary. Review of Systems Other Complains of some residual back pain. No other physical complaints. Objective Alert: Yes [place]: Person (O x 3) Mood: Depressed (improved) Affect: Blunted Memory Intact: Comment (Intact on clinical exam) Hallucinations: Other (Denies AVH) Delusions: No Delusion Type: Other (None elicited) Suicidal: Ideation (denies suicidal ideation) Homicidal: Ideation (denies homicidal ideation) Insight/Judgement Fair Remarks Thought process linear. No abnormal motor movements noted. Speech is within normal limits for rate, tone and volume. Grooming and hygiene are good. No signs of withdrawal noted, and patient's Ativan requirement by [facility] has been minimal. Labs Labs reviewed. Vitals/IOs Vital Signs Date Time Temp Pulse Resp B/P Pulse Ox O2 Delivery O2 Flow Rate FiO2 04/25/16 05:14 99.8 92 16 133/77 95 04/21/16 12:50 Room Air Assessment & Plan Problem List: (1) Adjustment disorder ICD Code: F43.20 (2) Alcohol abuse ICD Code: F10.10 Assessment & Plan Presenting dysphoria seems more situational, related to new homelessness, then persistent, i.e. more consistent with an adjustment reaction. I also note that patient has a documented history of alcohol use issues, and was even noted to consume a case of beer daily in 2014. I have therefore adjusted the diagnostic schema to reflect probable issues with adjustment disorder and alcohol abuse. I will continue patient's Cymbalta as ordered, and the patient does not wish to make further medication adjustments with respect to his psychotropic medication. Continue other medications and care as ordered. Appreciate Dr. Cole's input; no acute treatment needed for blood dyscrasia. Appreciate Dr. Real's input; no neurosurgical intervention needed for back pain. I have encouraged the patient to participate in groups. Justification for Cont. Inpt. Monitoring for safety. No evidence of ongoing suicidality. Discharge Planning Anticipate discharge within the next day or 2. I have instructed the counselor flame cutting supervisor to begin final discharge planning and reach out to the [facility] patient case manager to ensure that the patient has a place in the domiciliary. Request HC Surrog/Guard Advoc?: No Problem Qualifiers (1) Adjustment disorder: Qualified Code: F43.25 - Adjustment disorder with mixed disturbance of emotions and conduct Rishi Langston MD Apr 25, 2016 14:22
--- NOTE | 2016-04-25 15:58 | HHI.PR ---
Subjective Remarks Follow up: muscle spasm, lower back pain with radiculopathy, leukocytosis with thrombocytopenia and diabetes mellitus Patient resting in bed denies pain at this time. She reports that the pain comes and goes. Is much better than it was prior to pain medication and Flexeril, but still occasionally present. Patient denies loss of bowel and bladder control. He offers no other complaints at this time. Patient denies shortness of breath chest pain nausea vomiting diarrhea constipation fevers or chills. Objective Vitals Vital Signs Date Time Temp Pulse Resp B/P Pulse Ox O2 Delivery O2 Flow Rate FiO2 04/25/16 05:14 99.8 92 16 133/77 95 04/24/16 20:26 97.3 72 17 148/77 98 04/24/16 18:10 97.3 90 18 135/79 94 Result Diagram: 04/22/16 0812 04/22/16 0812 Imaging Last Impressions Lumbar Spine MRI 04/22/16 0000 Signed Impressions: Service Date/Time: Friday, April 22, 2016 16:13 - CONCLUSION: 1. Lumbar spine degenerative changes primarily the L5/S1 level where there is mild right and mild to moderate left foraminal stenosis. There is also reactive appearing endplate marrow edema at this level. 2. Very mild degenerative changes at L3/ L4 and L4/L5 without stenosis. 3. No fracture or subluxation. Arcenio Novoa MD Chest X-Ray 04/21/16 0000 Signed Impressions: Service Date/Time: April 08:30 - CONCLUSION: No acute disease. Omar Cote MD Objective Remarks GENERAL: This is a well-nourished, well-developed patient, in no acute distress. In no acute distress SKIN: No rashes, ecchymoses or lesions. Cool and dry. HEAD: Atraumatic. Normocephalic. No temporal or scalp tenderness. EYES: Extraocular motions intact. No scleral icterus. No injection or drainage. CARDIOVASCULAR: Regular rate and rhythm without murmurs, gallops, or rubs. RESPIRATORY: Clear to auscultation. Breath sounds equal bilaterally. No wheezes , rales, or rhonchi. GASTROINTESTINAL: Abdomen soft, non-tender, nondistended. MUSCULOSKELETAL: Extremities without clubbing, cyanosis, or edema. No joint tenderness, effusion, or edema noted. No calf tenderness. Negative Homans sign bilaterally. NEUROLOGICAL: Awake and alert. no acute. Motor and sensory grossly within normal limits. Normal speech. 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 Patient is currently inpatient psychiatric center we have been consulted for management assistance in management of chronic pain. Patient reports he has had left lower flank pain for the past 7-8 months. Patient reports the pain is getting progressively worse, muscle spasm palpable on exam. Patient also noted to have leukocytosis 21,000 with thrombocytopenia 45. Major depression management per psychiatric team Muscle spasm improved continue Flexeril 10 mg 3 times a day as needed Lower back pain with radiculopathy [place] as needed for pain MRI lumbar spine reveals: 1. Lumbar spine degenerative changes primarily the L5/S1 level where there is mild right and mild to moderate left foraminal stenosis. There is also reactive appearing endplate marrow edema at this level. 2 Very mild degenerative changes at L3/L4 and L4/L5 without stenosis. 3. No fracture or subluxation. Consult neurosurgery appreciated recommended physical therapy and outpatient follow-up with [facility] Leukocytosis with thrombocytopenia No signs of infection patient is afebrile, urinalysis reviewed negative for leukocyte esterase, chest x-ray reviewed no acute disease process Consult hematology appreciated and the patient is questionable history of CML recommend outpatient follow-up Diabetes mellitus Hemoglobin A1c 6.6 Will start metformin 500 mg twice a day Accu-Cheks before meals and at bedtime with low-dose sliding scale insulin coverage diabetic diet Consult clinical staff educator DVT prophylaxis encouraged early ambulation Discussed plan of care with patient and nursing Patient medically stable at this time we'll sign off. Patient's condition changes or further assistance is needed please reconsult Written by Berta Barcenas, acting as scribe for Dr. Najera on 04/25/16 at 15:58. Attending Statement All or portions of this note were transcribed by ml Barcenas I, Dr. Zion Mcgovern personally performed the history, physical exam, and medical decision making; and confirmed the accuracy of the information in the transcribed note. Authenticated by Dr. Zion Mcgovern on 04/25/16 at 16:58. Berta Barcenas Apr 25, 2016 15:58 Zion Elena MD May 04, 2016 20:17
[2016-04-25] MEDS ORDERED: CYCLOBENZAPRINE HCL 10 MG TAB PO PRN (16:00)
[2016-04-25 16:48] VITALS: BP 156/76; PULSE 95; RESP 18; TEMP 98.3; O2SAT 95
[2016-04-26] MEDS: ACETAMINOPHEN/HYDROcodone 325 MG/5 MG TAB PO PRN ×2 (05:36→10:21)
[2016-04-26 05:49] VITALS: BP 125/78; PULSE 84; RESP 18; TEMP 98.2; O2SAT 95
[2016-04-26] MEDS: INSULIN ASPART SUPPLEMENTAL SCALE SQ SCH ×2 (06:05→11:00)
[2016-04-26] MEDS: THIAMINE HCL 100 MG TAB PO SCH (08:05)
[2016-04-26] MEDS: FOLIC ACID 1 MG TAB PO SCH (08:05)
[2016-04-26] MEDS: DULoxetine HCl DR 60 MG CAP PO SCH (08:06)
[2016-04-26] MEDS: metFORMIN HCL 500 MG TAB PO SCH (08:06)
[2016-04-26] MEDS: NICOTINE 21 MG/24 HR PATCH T-DERMAL SCH (08:07)
[2016-04-26] MEDS: REMOVE OLD PATCH T-DERMAL SCH (08:07)
[2016-04-26] MEDS: ACETAMINOPHEN/HYDROcodone 325 MG/10 MG TAB PO PRN ×2 (10:29→15:38)
[2016-04-26] MEDS ORDERED: METF500 PO (13:59)
[2016-04-26] MEDS ORDERED: HYDR-3583 PO (14:00)
[2016-04-26] MEDS ORDERED: CYCL1TAB29 PO (14:00)
[2016-04-26] MEDS ORDERED: DULO1CAP3 PO (14:10)
--- NOTE | 2016-04-26 14:10 | HHI.DS ---
Psychiatry Discharge Summary Inpatient Psychiatric care?: Yes Advance Directive: No Mental Health AdvanceDirective: No Health Care Proxy: No Admission Admission Date Apr 21, 2016 at 15:14 Admission Diagnosis: (1) Major depression ICD Code: F32.9 Brief History This is a 56-year-old white male who claimed that he has been feeling depressed for the last several months. He was kicked out of his residence. He also has a back pain his kidney was removed he also broke up with his girlfriend. He has no place to go to he has no car he might lose his job he cannot go back and forth to work. He has been sleeping okay but his appetite is down and at that point he decided to end his misery and drank along with that he took overdose on painkillers. He is unhappy that he is still alive. But he feels safe in the hospital and hopefully the [place] might help him by transferring him. No behavior or management problem reported. He is compliant in taking medication and willing to sign voluntary Tobacco Use In Past 30 Days: 5 or More Cigarettes/Day Alcohol Use: 4 or More Times Per Week Hospital Course Patient was admitted to a locked, inpatient psychiatric unit. A general medical consultation was obtained and the patient was medically cleared prior to discharge. Additionally a neurosurgical and heme/onc consultation were obtained. Patient was seen and examined daily on the unit by psychiatry and also visited by counselor. Medications were adjusted. Patient tolerated medications well without side effects. Patient had improvement in his presenting psychiatric symptomatology. There was no evidence of any suicidality or homicidality on the inpatient unit. Patient remained in good behavioral control and was medication compliant. On the day of discharge: Patient seen and examined with counselor and nurse. Chart reviewed. Case discussed with counselor and nurse in treatment team. Per nursing staff, no behavioral problems noted. No evidence of suicidality or homicidality on the unit. He did apparently have a somewhat vivid dream last night. Counselor reports that [facility] is working on getting the patient into the domiciliary. On my examination today, the patient is requesting discharge from the inpatient psychiatric unit. His affect is bright and euthymic and he appears to be in generally good spirits. He says that he feels much improved and ready for discharge. Mood is reportedly improved. I can elicit no depressive or hypomanic/manic symptoms. He denies any suicidal or homicidal ideation. He denies any audiovisual hallucinations, and I can elicit no delusional beliefs. He denies any side effects from medications. He has no physical complaints. Weighing the acute, chronic, and protective factors and based on the available evidence, I supreme court judge to a reasonable degree of medical certainty that the patient is at low imminent risk of harm to self or others from a mental illness as defined under the [place] act and his level of function is adequate for outpatient care. Given that the patient does not meet criteria for involuntary psychiatric hospitalization at this time and given that he is requesting discharge from the inpatient psychiatric unit today, I will arrange for his discharge with psychiatric follow-up as arranged by counselor. Patient is also to follow-up with primary care. I counseled the patient regarding warning signs for need to return to the psychiatric emergency room as part of the general safety plan. I also counseled the patient to abstain from substances of abuse. Results Blood Pressure 125 / 78 Vital Signs Date Time Temp Pulse Resp B/P Pulse Ox O2 Delivery O2 Flow Rate FiO2 04/26/16 05:49 98.2 84 18 125/78 95 Laboratory Results Test 04/22/16 08:12 Hemoglobin A1c 6.6 % (4.3-6.0) Triglycerides Level 181 MG/DL (42-150) Cholesterol Level 141 MG/DL (120-200) LDL Cholesterol 54 MG/DL (0-99) HDL Cholesterol 50.5 MG/DL (40.0-60.0) Summary of Procedures None done Imaging Last Impressions Lumbar Spine MRI 04/22/16 0000 Signed Impressions: Service Date/Time: Friday, April 22, 2016 16:13 - CONCLUSION: 1. Lumbar spine degenerative changes primarily the L5/S1 level where there is mild right and mild to moderate left foraminal stenosis. There is also reactive appearing endplate marrow edema at this level. 2. Very mild degenerative changes at L3/ L4 and L4/L5 without stenosis. 3. No fracture or subluxation. Arcenio Novoa MD Chest X-Ray 04/21/16 0000 Signed Impressions: Service Date/Time: April 08:30 - CONCLUSION: No acute disease. Omar Cote MD Pending results at discharge: No Medications # of Antipsychotic meds at D/C: 0 Approp Antipsych med options 1 - Minimum of three failed multiple trials of monotherapy. 2 - Documented plan to taper to monotherapy due to previous use of multiple meds OR cross-taper in progress at D/C. 3 - Documentation of augmentation of Clozapine. 4 - Justification other than those listed in allowable values 1-3, document here : Discharge Discharge Date: Apr 26, 2016 Discharge Diagnosis: (1) Adjustment disorder Diagnosis: Principal (resolved) ICD Code: F43.20 (2) Alcohol abuse Diagnosis: Secondary (counseled to quit) ICD Code: F10.10 GAF on discharge is 60 Mental Status Exam at Disch Patient is casually dressed. He is well groomed. He is awake and alert and oriented 3. No evidence of delirium. No abnormal motor movements noted. No signs of withdrawal noted. Steady gait and station. Speech is within normal limits for rate, tone and volume. Language and fund of knowledge seemed average. Mood is reportedly much improved versus admission and affect is bright , euthymic, full and reactive. Thought process linear. No loosening of associations. No evident delusions. Denies audiovisual hallucinations. Denies suicidal or homicidal ideation. Insight and judgment are fair. Pt Condition on Discharge: Stable Discharge Disposition: Discharge Home Discharge Instructions Diet Instructions: Diabetic Diet Activities you can perform: Weight Bearing as Tim Scheduled Appointment: [place] Appointment Date: Apr 26, 2016 New Medications: Cyclobenzaprine (Flexeril) 10 Mg Tab 10 MG PO Q8HR PRN MUSCLE SPASM #[address] (Duloxetine DR) 60 Mg Capdr 60 MG PO DAILY Mental Health Days 15 Ref 1 CAP Hydrocodone-Acetaminophen (Hydrocodone-Acetaminophen) 10-325 mg Tab 1 TAB PO Q4H PRN PAIN SCALE 7 TO 10 #20 TAB Metformin (Glucophage) 500 Mg Tab 500 MG PO BIDPC Blood Sugar Management #62 TAB Discharge Time <= 30 minutes Discharge/Advance Care Plan Health Problems: (1) Adjustment disorder (2) Alcohol abuse Goals to promote your health * To prevent worsening of your condition and complications * To maintain your health at the optimal level Directions to meet your goals Take your medications as prescribed Follow your dietary instruction Follow activity as directed Keep your appointments as scheduled Take your immunizations and boosters as scheduled If your symptoms worsen call your PCP, if no PCP go to Urgent Care Center or Emergency Room For 05/09 questions related to your inpatient stay or results of tests pending at discharge, please contact Dr. Rishi Langston at Smoking is Dangerous to Your Health. Avoid second hand smoking Problem Qualifiers (1) Major depression: Qualified Code: F33.2 - Severe episode of recurrent major depressive disorder, without psychotic features (2) Adjustment disorder: Qualified Code: F43.25 - Adjustment disorder with mixed disturbance of emotions and conduct Rishi Langston MD Apr 26, 2016 14:10
== END 2016-04-26 17:10 | disposition home or self-care (01) | DRG 882 ==
LOC: NEPC 06:32 → NEDA 15:14 → H260 16:19
PROVIDERS: ADMIT Psychiatry & Neurology Psychiatry; ATTEND Psychiatry & Neurology Psychiatry
DX: F43.20 Adjustment disorder, unspecified (principal); C91.10 Chronic lymphocytic leukemia of B-cell type not having achieved remission; D69.6 Thrombocytopenia, unspecified; T50.902A Poisoning by unspecified drugs, medicaments and biological substances, intentional self-harm, initial encounter; F10.10 Alcohol abuse, uncomplicated; F17.210 Nicotine dependence, cigarettes, uncomplicated; Z59.0 Homelessness; M62.838 Other muscle spasm; E11.9 Type 2 diabetes mellitus without complications; Z90.5 Acquired absence of kidney
CPT/HCPCS: 71010; 72148; 80048; 80053; 80061; 80307; 81001; 82948; 83010; 83036; 83615; 85007; 85027; 88184; 88185; 88230; 88264; 88280; 88377; 93005; 96360; J7030

== ENCOUNTER 2016-05-04 15:41 | Emergency (ER) | payer OTHER ==
[~2016-05-04] VITALS: Ht 162.6 cm; Wt 78.0 kg
[~2016-05-04 15:41] MED LIST changes: -BUSP5 PO; -CEPH500 PO; -CITA20 PO; +CYCL1TAB29 PO; -DILA2TAB2 PO; +DULO1CAP3 PO; +HYDR-3583 PO; -IBUP600T26 PO; +METF500 PO; -OXYC-68 PO; -SIMV10 PO
[2016-05-04 18:21] LABS: AUTOMATED NEUTROPHIL # 6.2 TH/MM3 (1.8-7.7); BASOPHIL # 0.1 TH/MM3 (0-0.2); BASOPHIL % 0.2 % (0.0-2.0); EOSINOPHIL # 0.1 TH/MM3 (0-0.4); EOSINOPHIL % 0.3 % (0.0-4.0); HEMATOCRIT 51.5 % (39.0-51.0); LYMPHOCYTE # 23.7 TH/MM3 (1.0-4.8); MEAN CELL VOLUME 96.2 FL (80.0-100.0); MEAN CORPUSCULAR HEMOGLOBIN 31.1 PG (27.0-34.0); MEAN CORPUSCULAR HGB CONC 32.3 % (32.0-36.0); MONO % 1.1 % (0.0-8.0); NEUT % 20.4 % (16.0-70.0); PLATELET COUNT 111 TH/MM3 (150-450); RED BLOOD COUNT 5.36 MIL/MM3 (4.50-5.90); RED CELL DISTRIBUTION WIDTH 16.3 % (11.6-17.2); WHITE BLOOD COUNT 30.4 TH/MM3 (4.0-11.0)
[2016-05-04 18:33] LABS: BICARBONATE 25.1 MEQ/L (21.0-32.0); HEMO FLAGS AUTO DIFF; POTASSIUM 5.2 MEQ/L (3.5-5.1)
--- NOTE | 2016-05-04 18:42 | PD ---
HPI Chief Complaint: Psychiatric Symptoms Time Seen by Provider: 18:42 Travel History International Travel<30 days: No Contact w/Intl Traveler<30days: No Traveled to known affect area: No History of Present Illness HPI 56-year-old male with history of major depressive disorder presents to the emergency department under Caba act for psychiatric evaluation. 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 Patient states he does have a history of depression and has had suicide attempt in the past, but is currently not suicidal. He states that he has been "fine" and following an argument with his girlfriend, she contacted the [place] who then spoke with the patient. The patient states he did say that he was angry and "could take a baseball bat out to the [place] to hit a tree," however he adamantly denies saying anything about wanting to hurt himself or anybody else. States that he was drinking alcohol last evening. Smokes 2-1/2 packs of tobacco cigarettes daily. He is requesting a nicotine patch. Denies any acute medical needs at this time. No other symptoms to report. PFSH Past Medical History Autoimmune Disease: No Anxiety: Yes Depression: Yes Heart Rhythm Problems: Yes (wps) Cancer: No High Cholesterol: No Diabetes: Yes (BORDERLINE DIABETIC) Endocrine: Yes Gastrointestinal Disorders: No Genitourinary: Yes (Left sided hydronephrosis) Hiatal Hernia: Yes Hypertension: Yes Immune Disorder: No Implanted Vascular Access Dvce: No Musculoskeletal: No Neurologic: No Psychiatric: No Reproductive: No Respiratory: No Renal Failure: Yes ?: Not Past Surgical History Abdominal Surgery: Yes (UMBILICAL REPAIR) Gynecologic Surgery: Yes (urostomy placement 2014) Tonsillectomy: Yes Other Surgery: Yes (NEPHROSTOMY) Social History Alcohol Use: Yes (BINGED LAST DAY) Tobacco Use: Yes (18 CIGS/DAY) Substance Use: Yes (Alcohol) Allergies-Medications (Allergen,Severity, Reaction): Coded Allergies: No Known Allergies (Unverified , 05/04/16) Reported Meds & Prescriptions Reported Meds & Active Scripts Active Duloxetine DR (Duloxetine HCl) 60 Mg Capdr 60 Mg PO DAILY 15 Days Hydrocodone-Acetaminophen 10-325 mg Tab 1 Tab PO Q4H PRN Flexeril (Cyclobenzaprine HCl) 10 Mg Tab 10 Mg PO Q8HR PRN Glucophage (Metformin HCl) 500 Mg Tab 500 Mg PO BIDPC Review of Systems Except as stated in HPI: all other systems reviewed are Neg Physical Exam Narrative GENERAL: Well-nourished male patient, cooperative, sitting up in a chair in the ambulance hallway, in no acute distress. Patient has strong smell of alcohol on his breath. SKIN: Warm and dry. HEAD: Atraumatic. Normocephalic. EYES: Pupils equal and round. No scleral icterus. No injection or drainage. ENT: No nasal bleeding or discharge. Mucous membranes pink and moist. NECK: Trachea midline. No JVD. CARDIOVASCULAR: Regular rate and rhythm. No murmur appreciated. RESPIRATORY: No accessory muscle use. Clear to auscultation. Breath sounds equal bilaterally. GASTROINTESTINAL: Abdomen soft, non-tender, nondistended. Hepatic and splenic margins not palpable. MUSCULOSKELETAL: No obvious deformities. No clubbing. No cyanosis. No edema. NEUROLOGICAL: Awake and alert. No obvious cranial nerve deficits. Motor grossly within normal limits. Normal speech. Data Data Last Documented VS Vital Signs Date Time Temp Pulse Resp B/P Pulse Ox O2 Delivery O2 Flow Rate FiO2 05/04/16 19:52 116 17 156/99 96 Room Air Orders Complete Blood Count With Diff (05/04/16 17:08) Basic Metabolic Panel (Bmp) (05/04/16 17:08) Psych Screen (05/04/16 17:08) Drug Screen, Random Urine (05/04/16 17:08) Alcohol (Ethanol) (05/04/16 17:08) Sodium Chlor 0.9% 1000 Ml Inj (Ns 1000 M (05/04/16 19:00) Nicotine 14 Mg Patch.24 Hr (Habitrol 14 (05/04/16 19:00) Labs Laboratory Tests Test 05/04/16 05/04/16 18:10 20:00 White Blood Count 30.4 TH/MM3 Red Blood Count 5.36 MIL/MM3 Hemoglobin 16.7 GM/DL Hematocrit 51.5 % Mean Corpuscular Volume 96.2 FL Mean Corpuscular Hemoglobin 31.1 PG Mean Corpuscular Hemoglobin 32.3 % Concent Red Cell Distribution Width 16.3 % Platelet Count 111 TH/MM3 Mean Platelet Volume 7.8 FL Neutrophils (%) (Auto) 20.4 % Lymphocytes (%) (Auto) 78.0 % Monocytes (%) (Auto) 1.1 % Eosinophils (%) (Auto) 0.3 % Basophils (%) (Auto) 0.2 % Neutrophils # (Auto) 6.2 TH/MM3 Lymphocytes # (Auto) 23.7 TH/MM3 Monocytes # (Auto) 0.3 TH/MM3 Eosinophils # (Auto) 0.1 TH/MM3 Basophils # (Auto) 0.1 TH/MM3 CBC Comment AUTO DIFF Differential Total Cells 100 Counted Neutrophils % (Manual) 21 % Lymphocytes % 76 % Monocytes % 2 % Eosinophils % 1 % Neutrophils # (Manual) 6.4 TH/MM3 Differential Comment FINAL DIFF MANUAL Smudge Cells PRESENT Platelet Estimate LOW Platelet Morphology Comment NORMAL Sodium Level 145 MEQ/L Potassium Level 5.2 MEQ/L Chloride Level 111 MEQ/L Carbon Dioxide Level 25.1 MEQ/L Anion Gap 9 MEQ/L Blood Urea Nitrogen 11 MG/DL Creatinine 1.08 MG/DL Estimat Glomerular Filtration 70 ML/MIN Rate Random Glucose 123 MG/DL Calcium Level 9.6 MG/DL Ethyl Alcohol Level 157 MG/DL Urine Opiates Screen NEG Urine Barbiturates Screen NEG Urine Amphetamines Screen NEG Urine Benzodiazepines Screen NEG Urine Cocaine Screen NEG Urine Cannabinoids Screen NEG MDM Medical Decision Making Medical Screen Exam Complete: Yes Emergency Medical Condition: Yes Medical Record Reviewed: Yes Differential Diagnosis mood disorder versus personality disorder versus adjustment reaction disorder versus intoxication Narrative Course 56-year-old male presents to emergency department under Caba act for psychiatric evaluation. Patient appears without distress. He is adamantly denying any suicidal or homicidal ideations. CBCs with leukocytosis of 30.2. Without neutrophilia. I discussed this with my attending physician and with no other signs of infectious etiology, this is likely secondary to recent psychosis or stress induced. Patient has no complaints of illness. BMP is with mild hyperkalemia 5.2. EtOH is 157. Toxicology is negative. Patient is medically cleared to undergo psychiatric screening for further evaluation and disposition. Mental health screening discussed with the patient. Psychiatric screen ordered. Diagnosis Primary Impression: Depression Qualified Code: F32.9 - Depression, unspecified depression type Condition: Donnell Lexy AntonyP May 04, 2016 18:42
[2016-05-04] MEDS ORDERED: NICOTINE 14 MG/24 HR PATCH TD ONE (19:00)
[2016-05-04] MEDS ORDERED: SODIUM CHLOR 0.9% 1000 ML INJ 1,000 ML IV ONE (19:00)
[2016-05-04 19:52] VITALS: BP 156/99; PULSE 116; RESP 17; O2SAT 96
[2016-05-04 20:22] LABS: AMPHETAMINE, URINE NEG (NEG); BARBITURATES, URINE NEG (NEG); COCAINE, URINE NEG (NEG)
[2016-05-04 20:31] LABS: EOSINOPHILS 1 % (0-4); NEUTROPHIL # MANUAL DIFF 6.4 TH/MM3 (1.8-7.7); POLYS (SEG NEUTROPHILS) 21 % (16-70); SCAN/DIFF FINAL DIFF MANUAL; SMUDGE CELLS PRESENT PRESENT; WBC DIFF SAMPLE 100
[2016-05-04 20:32] LABS: PLATELET ESTIMATE SMEAR LOW (NORMAL); PLATELET MORPHOLOGY NORMAL (NORMAL)
[2016-05-04 22:16] VITALS: BP 125/59; PULSE 117; RESP 18; O2SAT 95
[2016-05-05 02:00] VITALS: BP 134/76; PULSE 99; RESP 18; O2SAT 98
[2016-05-05 06:37] VITALS: BP 135/73; PULSE 78; RESP 18; TEMP 97.6; O2SAT 97
--- NOTE | 2016-05-05 11:10 | PD ---
History of Present Illness Chief Complaint: Psychiatric Symptoms Time Seen by Provider: 10:30 Travel History International Travel<30 Days: No Contact w/Intl Traveler<30days: No Known affected area: No Legal Status Legal Status: Caba Act Caba Act Signed By: Trevin Bean Caba Act Comment: 05/04/2016 0203 PM [facility] History of Present Illness: History of Present Illness 56-year-old male with history of major depressive disorder presents to the emergency department under Caba act initiated by ARNULFO for psychiatric evaluation. As per the BA report the was on the phone with [facility] and while on the phone he was " reminiscing on his suicide attempt and was upset that it was not successful ". Pito was making suicidal statements while on the phone. Patient on arrival to [facility] with BAL of 157 and he admits to having been drinking . El was hospitalized at [facility] for suicidal ideation on April 21 to the 2016. Patient is seen in J pod. he is clinically sober. His speech is clear and there is no evidence of any withdrawals symptoms. He is engaging and cooperative. His hygiene and grooming are appropriate. Affect is variable. There is no hallucinations, no delusions and no paranoia. He denies that he is thinking about harming himself or harming anyone else. He states " I have a lot going for me now. I am getting a job in [place]. I have a new apartment that I am moving into and I have decided that I need to end this relationship". He further reports that he had been arguing with his girlfriend and did make the statement about " getting a bat and going and hitting a tree". He claims this is his way of venting when he is frustrated. We discussed his drinking alcohol and the negative effects as well as more involvement with AA. He denies feeling depressed at this time as compared to previous visit to [facility]. PFSH Past Medical History Autoimmune Disease: No Anxiety: Yes Depression: Yes Heart Rhythm Problems: Yes (wps) Cancer: No Cardiovascular Problems: Yes High Cholesterol: No Diabetes: Yes (borderline diabetic) Patient Takes Glucophage: No Endocrine: Yes Gastrointestinal Disorders: No Genitourinary: Yes (Left sided hydronephrosis) Hiatal Hernia: Yes Hypertension: Yes Immune Disorder: No Implanted Vascular Access Dvce: No Musculoskeletal: No Neurologic: No Psychiatric: Yes Reproductive: No Respiratory: No Renal Failure: Yes Tetanus Vaccination: < 5 Years ?: Not Past Surgical History Abdominal Surgery: Yes (umbilical repair) Genitourinary Surgery: Yes (urostomy 2015, nephrostomy) Gynecologic Surgery: Yes (urostomy placement 2014) Tonsillectomy: Yes Other Surgery: Yes (NEPHROSTOMY) Psychiatric History Psychiatric History Hx Psychiatric Treatment: Says he is seen by the [facility] in the past in [facility]. History of Inpatient Treatment: Yes ([facility] April 2015) Guns or firearms in home: No Social History Single male. Currently unemployed. Was living with a girlfriend. Hx Alcohol Use: Yes (1 pint whiskey 05/03/16) Hx Tobacco Use: Yes (2 ppd) Hx Substance Use: Yes Substance Use Type: Alcohol (BAL of 157) Hx of Substance Use Treatment: Yes Family Psychiatric History Negative Allergies-Medications (Allergen,Severity, Reaction): Coded Allergies: No Known Allergies (Unverified , 05/04/16) Reported Meds & Prescriptions Reported Meds & Active Scripts Active Duloxetine DR (Duloxetine HCl) 60 Mg Capdr 60 Mg PO DAILY 15 Days Hydrocodone-Acetaminophen 10-325 mg Tab 1 Tab PO Q4H PRN Flexeril (Cyclobenzaprine HCl) 10 Mg Tab 10 Mg PO Q8HR PRN Glucophage (Metformin HCl) 500 Mg Tab 500 Mg PO BIDPC Review of Systems Except as stated in HPI: all other systems reviewed are Neg Exam Alert: Yes [place]: Person (ox4) Mood: Calm Affect: Euthymic Speech: Clear, Logical Eye Contact: Normal Memory Intact: Comment (no impairmetn) Hallucinations: Other (negative) Delusions: No Suicidal: Ideation (deneis any) Homicidal: Ideation (deneis) Insight/Judgement Fair. Not impaired. MDM Medical Decision Making Medical Record Reviewed: Yes Assessment/Plan 56 year old male with hx of depression who is under a BA for suicidal ideation in context of alcohol intoxication and being involved in an argument with his . The patient at this time is clinically sober and denies any suicidal or homicidal ideation, intent or plan. He is future oriented and is excited over his move to [place]. He does not meet criteria for BA. [facility] with [facility] and clarify that he was not suicidal . Lift BA. [facility] up with [facility] recommend AA. Orders Complete Blood Count With Diff (05/04/16 17:08) Basic Metabolic Panel (Bmp) (05/04/16 17:08) Psych Screen (05/04/16 17:08) Drug Screen, Random Urine (05/04/16 17:08) Alcohol (Ethanol) (05/04/16 17:08) Sodium Chlor 0.9% 1000 Ml Inj (Ns 1000 M (05/04/16 19:00) Nicotine 14 Mg Patch.24 Hr (Habitrol 14 (05/04/16 19:00) Diet Diabetic (05/05/16 Breakfast) Diet Regular Basic (05/05/16 Lunch) Results Vital Signs Date Time Temp Pulse Resp B/P Pulse Ox O2 Delivery O2 Flow Rate FiO2 05/05/16 06:37 97.6 78 18 135/73 97 Room Air 05/05/16 02:00 99 18 134/76 98 Room Air 05/04/16 22:16 117 18 125/59 95 Room Air 05/04/16 20:50 116 17 05/04/16 19:52 116 17 156/99 96 Room Air Laboratory Tests Test 05/04/16 05/04/16 18:10 20:00 White Blood Count 30.4 Red Blood Count 5.36 Hemoglobin 16.7 Hematocrit 51.5 Mean Corpuscular Volume 96.2 Mean Corpuscular Hemoglobin 31.1 Mean Corpuscular Hemoglobin 32.3 Concent Red Cell Distribution Width 16.3 Platelet Count 111 Mean Platelet Volume 7.8 Neutrophils (%) (Auto) 20.4 Lymphocytes (%) (Auto) 78.0 Monocytes (%) (Auto) 1.1 Eosinophils (%) (Auto) 0.3 Basophils (%) (Auto) 0.2 Neutrophils # (Auto) 6.2 Lymphocytes # (Auto) 23.7 Monocytes # (Auto) 0.3 Eosinophils # (Auto) 0.1 Basophils # (Auto) 0.1 CBC Comment AUTO DIFF Differential Total Cells 100 Counted Neutrophils % (Manual) 21 Lymphocytes % 76 Monocytes % 2 Eosinophils % 1 Neutrophils # (Manual) 6.4 Differential Comment FINAL DIFF MANUAL Smudge Cells PRESENT Platelet Estimate LOW Platelet Morphology Comment NORMAL Sodium Level 145 Potassium Level 5.2 Chloride Level 111 Carbon Dioxide Level 25.1 Anion Gap 9 Blood Urea Nitrogen 11 Creatinine 1.08 Estimat Glomerular Filtration 70 Rate Random Glucose 123 Calcium Level 9.6 Ethyl Alcohol Level 157 Urine Opiates Screen NEG Urine Barbiturates Screen NEG Urine Amphetamines Screen NEG Urine Benzodiazepines Screen NEG Urine Cocaine Screen NEG Urine Cannabinoids Screen NEG Diagnosis Primary Impression: Depression Additional Impression: Alcohol intoxication Psychiatrically Cleared: Yes Med/ Other Pt Specific Info: No Change to Meds Disposition: 01 DISCHARGE HOME Condition: Stable Problem Qualifiers Primary Impression: Depression Qualified Code: F32.0 - Mild single current episode of major depressive disorder Additional Impression: Alcohol intoxication Qualified Code: F10.120 - Alcohol intoxication, uncomplicated Mimi Zuñiga May 05, 2016 11:10
== END 2016-05-05 11:25 | disposition home or self-care (01) ==
LOC: NEDAMB 15:41 → NEPJ 05-05 11:25
DX: F32.0 Major depressive disorder, single episode, mild (principal); F10.120 Alcohol abuse with intoxication, uncomplicated; I10 Essential (primary) hypertension; R73.03 Prediabetes; F17.200 Nicotine dependence, unspecified, uncomplicated; Z87.448 Personal history of other diseases of urinary system; Z86.59 Personal history of other mental and behavioral disorders; Z86.79 Personal history of other diseases of the circulatory system; Z87.39 Personal history of other diseases of the musculoskeletal system and connective tissue
CPT/HCPCS: 80048; 80307; 85007; 85027; 99284

== ENCOUNTER 2016-08-14 11:39 | Inpatient (IN) | payer OTHER ==
[~2016-08-14] VITALS: Ht 162.6 cm; Wt 73.3 kg
--- NOTE | 2016-08-14 11:46 | PD ---
HPI Chief Complaint: Caba Act / Psych Symptoms Time Seen by Provider: 11:45 Travel History International Travel<30 days: No Contact w/Intl Traveler<30days: No History of Present Illness HPI 56-year-old male presents the emergency department under the Caba act for depression with suicidal ideation. Patient actually flagged down EMS outside of the station stating that he was suicidal and wanted to either throwing himself in front of a car or jump off a high building. Police were called and patient was assessed and found to be suicidal. Is a history of depression but states he has not been taking his meds for some time. Patient was seen last evening after reportedly collapsing at the [facility] secondary to left-sided back pain which she has a history of. Patient has history of a kidney problem requiring nephrectomy by his history. This was done several years ago at [facility]. Patient states he is borderline diabetic takes no medications currently. His back pain is described as aching and not radicular in the left lumbar region. Pain is rated as an 8/10. It is not better or worse with movement. He has no known drug allergies. PFSH Past Medical History Autoimmune Disease: No Anxiety: Yes Depression: Yes Heart Rhythm Problems: Yes (wps) Cancer: No Cardiovascular Problems: Yes High Cholesterol: No Diabetes: Yes (borderline diabetic) Endocrine: Yes Gastrointestinal Disorders: No Genitourinary: Yes (Left sided hydronephrosis) Hiatal Hernia: Yes Hypertension: Yes Immune Disorder: No Implanted Vascular Access Dvce: No Musculoskeletal: No Neurologic: No Psychiatric: Yes Reproductive: No Respiratory: No Renal Failure: Yes Past Surgical History Abdominal Surgery: Yes (umbilical repair) Genitourinary Surgery: Yes (urostomy 2015, nephrostomy) Gynecologic Surgery: Yes (urostomy placement 2015) Tonsillectomy: Yes Other Surgery: Yes (NEPHROSTOMY) Social History Alcohol Use: Yes (1 pint whiskey 05/03/16) Tobacco Use: Yes (2 ppd) Substance Use: Yes Allergies-Medications (Allergen,Severity, Reaction): Coded Allergies: No Known Allergies (Unverified , 08/14/16) Reported Meds & Prescriptions Reported Meds & Active Scripts Active No Active Prescriptions or Reported Medications Review of Systems Except as stated in HPI: all other systems reviewed are Neg General / Constitutional: No: Fever Eyes: No: Visual changes HENT: No: Headaches Cardiovascular: No: Chest Pain or Discomfort Respiratory: No: Shortness of Breath Gastrointestinal: No: Abdominal Pain Genitourinary: No: Dysuria Musculoskeletal: Positive: Myalgias, Pain (see history present illness.) Skin: No Rash Neurologic: No: Weakness Psychiatric: Positive: Depression, Suicidal Ideations, Mood Disorder Endocrine: No: Polydipsia Hematologic/Lymphatic: No: Easy Bruising Physical Exam Narrative GENERAL: Patient appears disheveled and obviously emotionally distraught, but able to ambulate to the room. SKIN: Warm and dry. Color. Normal turgor. No rash. HEAD: Atraumatic. Normocephalic. EYES: Pupils equal and round. No scleral icterus. No injection or drainage. ENT: No nasal bleeding or discharge. Mucous membranes pink and moist. Pharynx is clear. Airway is patent. NECK: Trachea midline. Neck is supple nontender. CARDIOVASCULAR: Regular rate and rhythm. RESPIRATORY: No accessory muscle use. Clear to auscultation. Breath sounds equal bilaterally. GASTROINTESTINAL: Abdomen soft, non-tender, nondistended. Hepatic and splenic margins not palpable. No CVA tenderness. MUSCULOSKELETAL: Extremities without clubbing, cyanosis, or edema. No obvious deformities. Patient has pain with palpation to the lumbar paraspinous region. Negative straight leg raise pain bilaterally in the lower extremities. NEUROLOGICAL: Awake and alert. No obvious cranial nerve deficits. Motor grossly within normal limits. Five out of 5 muscle strength in the arms and legs. Normal speech. PSYCHIATRIC: Appropriate mood and affect; insight and judgment normal. Data Data Last Documented VS Vital Signs Date Time Temp Pulse Resp B/P Pulse Ox O2 Delivery O2 Flow Rate FiO2 08/14/16 13:17 86 16 08/14/16 11:59 98.7 149/86 99 Orders Complete Blood Count With Diff (08/14/16 12:03) Comprehensive Metabolic Panel (08/14/16 12:03) Urinalysis - C+S If Indicated (08/14/16 12:03) Psych Screen (08/14/16 12:03) Drug Screen, Random Urine (08/14/16 12:03) Alcohol (Ethanol) (08/14/16 12:03) Lorazepam (Ativan) (08/14/16 12:15) Oxycodone-Acetamin 7.5-325 Mg (Percocet (08/14/16 12:15) Lipase (08/14/16 10:15) Labs Laboratory Tests Test 08/14/16 08/14/16 10:15 12:20 White Blood Count 13.3 TH/MM3 Red Blood Count 4.31 MIL/MM3 Hemoglobin 13.8 GM/DL Hematocrit 41.2 % Mean Corpuscular Volume 95.5 FL Mean Corpuscular Hemoglobin 31.9 PG Mean Corpuscular Hemoglobin 33.5 % Concent Red Cell Distribution Width 16.6 % Platelet Count 42 TH/MM3 Mean Platelet Volume 7.9 FL Neutrophils (%) (Auto) 34.8 % Lymphocytes (%) (Auto) 62.4 % Monocytes (%) (Auto) 2.5 % Eosinophils (%) (Auto) 0.2 % Basophils (%) (Auto) 0.1 % Neutrophils # (Auto) 4.6 TH/MM3 Lymphocytes # (Auto) 8.3 TH/MM3 Monocytes # (Auto) 0.3 TH/MM3 Eosinophils # (Auto) 0.0 TH/MM3 Basophils # (Auto) 0.0 TH/MM3 CBC Comment AUTO DIFF Differential Total Cells 100 Counted Neutrophils % (Manual) 38 % Lymphocytes % 58 % Monocytes % 4 % Neutrophils # (Manual) 5.1 TH/MM3 Differential Comment FINAL DIFF MANUAL Smudge Cells PRESENT Platelet Estimate LOW Platelet Morphology Comment NORMAL Red Cell Morphology Comment NORMAL Sodium Level 138 MEQ/L Potassium Level 4.2 MEQ/L Chloride Level 106 MEQ/L Carbon Dioxide Level 22.0 MEQ/L Anion Gap 10 MEQ/L Blood Urea Nitrogen 10 MG/DL Creatinine 0.81 MG/DL Estimat Glomerular Filtration 98 ML/MIN Rate Random Glucose 121 MG/DL Calcium Level 7.9 MG/DL Total Bilirubin 1.0 MG/DL Aspartate Amino Transf 72 U/L (AST/SGOT) Alanine Aminotransferase 58 U/L (ALT/SGPT) Alkaline Phosphatase 99 U/L Total Protein 7.2 GM/DL Albumin 3.4 GM/DL Lipase 170 U/L Ethyl Alcohol Level 146 MG/DL Urine Color YELLOW Urine Turbidity CLEAR Urine pH 6.0 Urine Specific [place] 1.007 Urine Protein NEG mg/dL Urine Glucose (UA) TRACE mg/dL Urine Ketones NEG mg/dL Urine Occult Blood NEG Urine Nitrite NEG Urine Bilirubin NEG Urine Urobilinogen LESS THAN 2.0 MG/DL Urine Leukocyte Esterase NEG Urine RBC LESS THAN 1 /hpf Urine WBC 1 /hpf Urine Squamous Epithelial <1 /hpf Cells Urine Transitional Epithelial <1 /hpf Cells Urine Mucus FEW /lpf Microscopic Urinalysis Comment CULT NOT INDICATED Urine Opiates Screen NEG Urine Barbiturates Screen NEG Urine Amphetamines Screen NEG Urine Benzodiazepines Screen NEG Urine Cocaine Screen NEG Urine Cannabinoids Screen NEG MDM Medical Decision Making Medical Screen Exam Complete: Yes Emergency Medical Condition: Yes Medical Record Reviewed: Yes Differential Diagnosis Caba act. Suicidal ideation. Left lower back pain. Left flank pain. Narrative Course Patient is medically stable at time of exam. Labs ordered per psychiatric protocol with the addition of lipase. Patient is given 0.5 mg lorazepam by mouth as well as Percocet 7.5/325 by mouth 1. Labs show mild leukocytosis of 13.5 otherwise no acute findings. EtOH level is 137. Glucose is 121. No other significant findings are noted. Patient is medically clear for psychiatric evaluation. Diagnosis Primary Impression: Depression Qualified Code: F32.9 - Depression, unspecified depression type Additional Impressions: Alcohol abuse Back pain Qualified Code: M54.5 - Left-sided low back pain without sciatica, unspecified chronicity Medical clearance for psychiatric admission Scripts No Active Prescriptions or Reported Meds Condition: Stable Barrett Edwards Aug 14, 2016 11:46
[2016-08-14 11:59] VITALS: BP 149/86; PULSE 101; RESP 18; TEMP 98.7; O2SAT 99
[2016-08-14] MEDS ORDERED: LORazepam 0.5 MG TAB PO ONE (12:15)
[2016-08-14] MEDS ORDERED: oxyCODONE/ACETAMINOPHEN 7.5 MG/325 MG TAB PO ONE (12:15)
[2016-08-14 12:41] LABS: AUTOMATED NEUTROPHIL # 4.6 TH/MM3 (1.8-7.7); BASOPHIL % 0.1 % (0.0-2.0); EOSINOPHIL % 0.2 % (0.0-4.0); HEMATOCRIT 41.2 % (39.0-51.0); LYMPH % 62.4 % (9.0-44.0); LYMPHOCYTE # 8.3 TH/MM3 (1.0-4.8); MEAN CELL VOLUME 95.5 FL (80.0-100.0); MEAN CORPUSCULAR HEMOGLOBIN 31.9 PG (27.0-34.0); MEAN CORPUSCULAR HGB CONC 33.5 % (32.0-36.0); MONO % 2.5 % (0.0-8.0); NEUT % 34.8 % (16.0-70.0); PLATELET COUNT 42 TH/MM3 (150-450); RED BLOOD COUNT 4.31 MIL/MM3 (4.50-5.90); RED CELL DISTRIBUTION WIDTH 16.6 % (11.6-17.2); WHITE BLOOD COUNT 13.3 TH/MM3 (4.0-11.0)
[2016-08-14 12:46] LABS: HEMO FLAGS AUTO DIFF
[2016-08-14 12:57] LABS: AMPHETAMINE, URINE NEG (NEG); BARBITURATES, URINE NEG (NEG); COCAINE, URINE NEG (NEG)
[2016-08-14 12:58] LABS: BLOOD, URINE NEG (NEG); COMMENT (UR) CULT NOT INDICATED; CULTURE IF INDICATED CULT NOT INDICATED; GLUCOSE,URINE TRACE mg/dL (NEG); KETONE, URINE NEG (NEG); MUCUS URINE FEW /lpf (OCC); NITRITE,URINE NEG (NEG); SQUAMOUS EPITHELIAL CELL URINE <1 /hpf (0-5); TRANSITIONAL EPI CELLS, URINE <1 /hpf; URINE COLOR YELLOW (YELLW/STRAW)
[2016-08-14 13:00] LABS: ALT (GPT) 58 U/L (12-78); ANION GAP 10 MEQ/L (5-15); AST (GOT) 72 U/L (15-37); BLOOD UREA NITROGEN 10 MG/DL (7-18); CHLORIDE 106 MEQ/L (98-107); GLOMERULAR FILTRATION RATE 98 ML/MIN (>89); POTASSIUM 4.2 MEQ/L (3.5-5.1); SODIUM (NA) 138 MEQ/L (136-145)
[2016-08-14 13:01] LABS: ALKALINE PHOSPHATASE 99 U/L (45-117)
[2016-08-14 13:17] LABS: NEUTROPHIL # MANUAL DIFF 5.1 TH/MM3 (1.8-7.7); POLYS (SEG NEUTROPHILS) 38 % (16-70); WBC DIFF SAMPLE 100
[2016-08-14 13:19] LABS: PLATELET ESTIMATE SMEAR LOW (NORMAL); PLATELET MORPHOLOGY NORMAL (NORMAL); SCAN/DIFF FINAL DIFF MANUAL; SMUDGE CELLS PRESENT PRESENT
[2016-08-14] MEDS ORDERED: FLUMAZENIL 0.5 MG/5 ML VIAL IV PUSH PRN (21:15)
[2016-08-14] MEDS ORDERED: LORazepam 2 MG/ML VIAL IV PUSH PRN ×4 (21:15)
[2016-08-14 21:16] VITALS: BP 164/82; PULSE 100; RESP 16; TEMP 98; O2SAT 97
[2016-08-14] MEDS: LORazepam 1 MG TAB PO PRN (22:21)
[2016-08-15 02:05] VITALS: BP 137/77; PULSE 88; RESP 16; TEMP 97.8; O2SAT 96
[2016-08-15 06:33] VITALS: BP 136/70; PULSE 80; RESP 16; TEMP 98; O2SAT 98
[2016-08-15 06:47] VITALS: BP 136/70; PULSE 80; RESP 16; TEMP 98; O2SAT 98
[2016-08-15 10:18] VITALS: BP 123/72; PULSE 89; RESP 18; O2SAT 92
[2016-08-15] MEDS ORDERED: diphenhydrAMINE HCL 50 MG CAP PO PRN (11:15)
[2016-08-15] MEDS ORDERED: ALUMINUM/MAGNESIUM/SIMETH 30 ML CUP PO PRN ×2 (11:30→14:00)
[2016-08-15] MEDS ORDERED: MAGNESIUM HYDROXIDE SUSP 30 ML CUP PO PRN ×2 (11:30→14:00)
[2016-08-15] MEDS ORDERED: ACETAMINOPHEN 325 MG TAB PO PRN (11:30)
[2016-08-15] MEDS ORDERED: diphenhydrAMINE HCL 50 MG/ML VIAL IM PRN (11:30)
[2016-08-15] MEDS ORDERED: diphenhydrAMINE HCL 50 MG/ML VIAL - HS PRN IM (11:30)
[2016-08-15] MEDS: LORazepam 1 MG TAB PO PRN ×2 (11:41→20:50)
[2016-08-15 12:01] VITALS: BP 147/76; PULSE 85; RESP 18; TEMP 98.5; O2SAT 96
--- NOTE | 2016-08-15 13:02 | PD.PN.STU ---
Subjective Remarks Patient is a 56 y/o male with history of chronic back pain, alcohol abuse, and leukemia presents to the unit per Caba Act due to suicidal ideation. Patient reports "giving up on life" 3-4 months ago after relationship and work troubles. He has been progressively worsening ever since, culminating in a break 1 week ago during which he left everything he had in [place], including house and job, to come to [place] to try and find some happiness in his passion for racing. He went to a race this weekend and considered jumping off the bleachers, but restrained himself because there were kids around. At the race he suffered severe back pain and was transfered to [facility]. After treatment for his back, he left the hospital and found himself wanting to dart in front of trucks on the road. He came to [place] for help. 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 He reports one previous suicide attempt by overdose due to life stressors 3 months ago, but he failed and ended up admitted to this unit. He also reports 3 other hospitalizations for alcohol abuse. He denies any AVH. He reports decreased sleep, decreased appetite, decreased energy level, and depressed mood. He also reports episodes of possible hypomania in his past when he was a stock letterer. He admits to curernt suicidal ideation with plans of jumping off a building or crashing is truck. He has seen a [facility] in the past for anxiety and depression, but does not remember what medications they treated him with. He is not on any psychiatric medications now. Patient has a medical histroy of chronic back pain, leukemia, and alcohol abuse. He denies any family history of psychiatric illness. He admits to a history of alcohol abuse. He was clean for 8 months before relapsing 1.5 weeks ago and began drinking 18 beers/day with his last drink this morning. He smokes 1ppd x 30 yrs. He denies any illicit drug use. Objective Vitals Vital Signs Date Time Temp Pulse Resp B/P Pulse Ox O2 Delivery O2 Flow Rate FiO2 08/15/16 12:01 98.5 85 18 147/76 96 08/15/16 10:18 89 18 123/72 92 Room Air 08/15/16 06:47 98.0 80 16 136/70 98 08/15/16 06:33 98.0 80 16 136/70 98 08/15/16 02:05 97.8 88 16 137/77 96 08/14/16 21:16 98.0 100 16 164/82 97 08/14/16 13:17 86 16 Result Diagram: 08/14/16 1015 08/14/16 1015 Objective Remarks Patient is interviewed laying down, eyes closed, and tearful as he rocked back and forth in pain from his back. He wore a hospital gown and glasses. He looked disheleved and unkempt. He was cooperative with the interview. His speech was of normal speed and prosody. Mood was sad and tearful. Affect was congruent with limited range and intensity. Thought process is logical. Patient still expresses significant suicidal ideation. HIs cognition and intellectu seem fair. His insight into needing treatment is fair. His judgement is poor. A/P Assessment and Plan 1) Major Depressive Disorder, severe type, recurrent episode versus adjustment disorder Patient is a 56 year old male presenting to unit with suicidal ideation and persistant depressed mood over the last 3 months. As patient is still a harm to himself, he will be admitted to the unit under the Caba Act. Will start him on fluoxetine for depression, trazodone prn for sleep, and monitor progress. Estimated LOS 5-7 days Earl Long M3 Aug 15, 2016 13:02
--- NOTE | 2016-08-15 14:33 | HHI.HP ---
Provisional Diagnosis Admission Date Aug 15, 2016 at 10:26 [place] I. Major depression recurrent severe with psychotic features f 33.3, alcohol abuse with intoxication F10.129 Certification of Person's Competence To Provide Express and Informed Consent I have personally examined Flor Sheldon , a person being served at [facility] on, Aug 15, 2016 14:04. Express and informed consent means consent voluntarily given in writing, by a competent person, after sufficient explanation and disclosure of the subject matter involved to enable the person to make a knowing and willful decision without any element of force, fraud, deceit, duress, or other form of constraint or coercion. This person is 18 years of age or older, is not now known to be incompetent to consent to treatment with a guardian advocate, and does not have a health care surrogate or proxy currently making medical treatment decisions. I have found this person to be one of the following: [] Competent to provide express and informed consent, as defined above, for voluntary admission to this facility and is competent to provide express and informed consent for treatment. He/she has the consistent capacity to make well reasoned, willful, and knowing decisions concerning his or her medical or mental health treatment. The person fully and consistently understands the purpose of the admission for examination/placement and is fully capable of personally exercising all rights assured under [place] [] Incompetent to provide express and informed consent to voluntary admission, and this is incompetent to provide express and informed consent to treatment. The person must be transferred to involuntary status and a petition for a guardian advocate filed with the Circuit Court. []xx Refusing to provide express and informed consent to voluntary admission but is competent to provide express and informed consent for treatment. The person must be discharged or transferred to involuntary status. Form shall be completed within 24 hours of a person's arrival at the receiving facility and filed in the clinical record of each person: 1. Admitted on a voluntary basis 2. Permitted to provide express and informed consent to his/her own treatment 3. Allowed to transfer from involuntary to voluntary status 4. Prior to permitting a person to consent to his or her own treatment after having been previously found incompetent to consent to treatment. History of Present Illness Capacity: Lacks Capacity (patient lacks capacity to sign for admission, patient has capacity to sign for medication) HPI Patient is a 56-year-old [facility] emergency room the Caba act signed by the [place] [employer] dated 08-29 at 11:17 AM that document reviewed and agreed with essentially stating that the subject stated he wants to kill himself by jumping in front of a moving vehicle patient seen screened in the ED blood alcohol level of 146, urine toxicology negative of interest the patient was hospitalized here 04/21/16 through 04/26/[address] langston discharged on Cymbalta. Patients had multiple prior contacts with us primarily related to nephrology and kidney issues. Though there has been some alcohol related issues in the past also. Patient seen in his room with nurse Romina and medical student Steve. She laying in his bed twisting in bed as if in discomfort from low back issues. Is also somewhat labile and at times somewhat tearful stating he feels hopeless helpless and worthless having issues with relationships employment and perhaps some abandonment by his family origin. He does acknowledge being an alcoholic was sitting he had 78 months of sobriety prior to she relapsed about a week ago. He does acknowledge a detox in the [place] area a couple of years ago. He states he moved from [place] to [place] about 3 months ago to make a new start. This did not work out. He then decided to come towards [facility] a about a week ago perhaps get some enjoyment out of race week. This did not work. While he was in the upper stand see have the urge to jump off of that was only prevented because of the nearby presence of children. He continues to have active suicidal ideation and a plan that he would take the suicide pill if offered to him. Patient denies any physical or sexual abuse as a child he says there is history of alcoholism his family. Patient has had prior psychiatric hospitalizations as mentioned above also [facility] related to his alcohol abuse. Patient has been once, his second about 2 years ago April. At this time patient does meet criteria for involuntary psychiatric hospitalization under the Caba act I'll do first opinion request second opinion. I do feel he has capacity to sign for medications. We did discuss medications it appears she is not compliant with his Cymbalta at the last hospitalization we'll restart that at 3 mg twice a day we'll also place him on the ciwa protocol. Will refrain from other benzodiazepines will refrain from opiates at this time and offer him Motrin. Patient is a he gets his care through [facility] he said he might be willing to look at a [place] type residential. Review of Systems Constitutional: COMPLAINS OF: Weight loss, DENIES: Diaphoretic episodes, Fatigue, Fever, Weight gain, Chills, Dizziness, Change in appetite, Night Sweats Endocrine: DENIES: Heat/cold intolerance, Polydipsia, Polyuria, Polyphagia Eyes: DENIES: Blurred vision, Diplopia, Eye inflammation, Eye pain, Vision loss , Photosensitivity, Double Vision Ears, nose, mouth, throat: DENIES: Tinnitus, Hearing loss, Vertigo, Nasal discharge, Oral lesions, Throat pain, Hoarseness, Ear Pain, Running Nose, Epistaxis, Sinus Pain, Toothache, Odynophagia Respiratory: DENIES: Apneas, Cough, Snoring, Wheezing, Hemoptysis, Sputum production, Shortness of breath Cardiovascular: DENIES: Chest pain, Palpitations, Syncope, Dyspnea on Exertion , PND, Lower Extremity Edema, Orthopnea, Claudication Gastrointestinal: DENIES: Abdominal pain, Black stools, Bloody stools, Constipation, Diarrhea, Nausea, Vomiting, Difficulty Swallowing, Anorexia Genitourinary: DENIES: Sexual dysfunction, Urinary frequency, Urinary incontinence, Urgency, Hematuria, Dysuria, Nocturia, Penile Discharge, Testicular Pain, Testicular Swelling Musculoskeletal: COMPLAINS OF: Back pain, DENIES: Joint pain, Muscle aches, Stiffness, Joint Swelling, Neck pain Integumentary: DENIES: Abnormal pigmentation, Nail changes, Pruritus, Rash Hematologic/lymphatic: DENIES: Bruising, Lymphadenopathy Immunologic/allergic: DENIES: Eczema, Urticaria Neurologic: COMPLAINS OF: Abnormal gait Psychiatric: COMPLAINS OF: Anxiety, Depression, Suicidal Ideation Past Psych History Psychological trauma history Patient denies any physical or sexual abuse Violence risk - others (6 mos) Low Violence risk - self (6 mos) High Substance Abuse History Drugs/Alcohol past 12 months Active alcohol abuser Past Family Social History Coded Allergies: No Known Allergies (Unverified , 08/14/16) Past Medical History Multiple complex sees MedSurg Discontinued Scripts Duloxetine DR 60 Mg Capdr60 Mg PO DAILY 15 Days Ref 1 Prov:Rishi Langston MD 04/26/16 Hydrocodone-Acetaminophen 10-325 mg Tab1 Tab PO Q4H PRN (PAIN SCALE 7 TO 10) # 20 TAB Prov:Zion Elena MD 04/26/16 Cyclobenzaprine (Flexeril)10 Mg Tab10 Mg PO Q8HR PRN (MUSCLE SPASM) #20 TAB Prov:Zion Elena MD 04/26/16 Metformin (Glucophage)500 Mg Npg887 Mg PO BIDPC #62 TAB Prov:Zion Elena MD 04/26/16 Current Medications Medications (Trade) Dose Ordered Sig/Clemente Route Start Time Stop Time Status Last Admin (Romazicon Inj) 0.2 mg Q1M PRN IV PUSH 08/14/16 21:15 (Ativan) 1 mg Q4H PRN PO 08/14/16 21:15 08/15/16 11:41 (Ativan Inj) 1 mg Q4H PRN IV PUSH 08/14/16 21:15 (Ativan) 2 mg Q2H PRN PO 08/14/16 21:15 (Ativan Inj) 2 mg Q2H PRN IV PUSH 08/14/16 21:15 (Ativan Inj) 2 mg Q1H PRN IV PUSH 08/14/16 21:15 (Ativan Inj) 2 mg Q15M PRN IV PUSH 08/14/16 21:15 08/14/16 21:31 (Atarax) 50 mg Q6H PRN PO 08/15/16 11:30 (Benadryl) 50 mg Q6H PRN PO 08/15/16 11:15 (Benadryl Inj) 50 mg Q6H PRN IM 08/15/16 11:30 (Benadryl) 50 mg HS PRN PO 08/15/16 11:30 (Benadryl Inj) 50 mg HS PRN IM 08/15/16 11:30 (Tylenol) 650 mg Q4H PRN PO 08/15/16 11:30 (Milk Of Magnesia Liq) 30 ml DAILY PRN PO 08/15/16 11:30 (Mag-Al Plus Susp Liq) 30 ml Q6H PRN PO 08/15/16 11:30 (Habitrol 21 Mg Patch.24 Hr) 1 patch DAILY T-DERMAL 08/16/16 09:00 Miscellaneous Information 1 HS T-DERMAL 08/15/16 21:00 Family History Patient denies history mental illness though there is alcohol abuse and family Social History Patient very twice months is somewhat estranged from his family and extended family Patient's Strengths (min. 2) Patient verbal label access healthcare Physical Exam Patient seen screened in ED exam reviewed and agreed with patient seen in his room laying down in his bed, he is in obvious discomfort rolling from side to side. Neck is supple he is in no respiratory distress. Moving all 4 extremities normal motor movements noted Vital Signs Vital Signs Date Time Temp Pulse Resp B/P Pulse Ox O2 Delivery O2 Flow Rate FiO2 08/15/16 12:01 98.5 85 18 147/76 96 08/15/16 10:18 Room Air Lab Results Blood alcohol level 146 negative toxicology Mental Status Examination Alert oriented white male laying in obvious discomfort in his bed with staff as mentioned above. He is somewhat disheveled in appearance somewhat guarded and irritable Appearance Somewhat disheveled Speech: Hesitant, Tangential Orientation: x3 Memory: Unremarkable Thought Process: Linear Thought Content: Unremarkable, Paranoid (mildly) Language Fair Fund of Knowledge Fair Hallucination Type: Auditory (vague), Visual (vague) Attention and Concentration: Other (fair) Suicidal Ideation: Yes (patient states he would take the suicide pill) Previous Suicide Attempts: Yes Homicidal Ideation: No Previous Homicide Attempts: No Insight: Poor Judgment: Poor Affect: Other (increase range and intensity) Mood: Sad Motor Activity: Abnormal gait-specify (complains of continue chronic back pain) Assessment & Plan Problem List: (1) Major depression ICD Code: F32.9 (2) Alcohol abuse with intoxication ICD Code: F10.129 Assessment & Plan Estimated LOS: 5-7 days patient meets criteria for involuntary psychiatric hospitalization under the Caba act I will do first opinion request second opinion. I feel his capacity [place] medications we will offer Cymbalta 30 mg twice a day and Motrin for pain. Continues other medical medications per the [employer]. We will also have hospitalist consult with us. We'll also explore with him the possibility of some [facility] Discharge Planning To be determined Request HC Surrog/Guard Advoc?: No Problem Qualifiers (1) Major depression: Qualified Code: F33.3 - Severe episode of recurrent major depressive disorder, with psychotic features Arcenio Peters MD Aug 15, 2016 14:33
[2016-08-15] MEDS: IBUPROFEN 600 MG TAB PO PRN ×2 (14:47→20:51)
[2016-08-15] MEDS: DULoxetine HCl DR 30 MG CAP PO SCH ×2 (14:47→20:50)
--- NOTE | 2016-08-15 16:16 | PD.CONS ---
HPI Service [facility] Hospitalists Consult Requested By Psychiatry team Reason for Consult Assist with medical management Primary Care Physician [facility] Diagnoses: History of Present Illness Written by Ran Ball, acting as scribe for Dr. Valdez on 08/15/16 at 15:57. Patient is a 56-year-old male with primary medical history of anxiety, depression, DM 2, left-sided hydronephrosis, hiatal hernia, HTN, EtOH abuse who came into the hospital under Caba act for suicidal ideation. He is now admitted to inpatient psychiatry unit for further evaluation. Consulted for medical management. Patient seen and examined today. He reports he came to the hospital because he tried to commit suicide. Complaints of lower back pain has been ongoing for months, radiates to the right side left side of his abdomen. States he had a left nephrostomy, also urostomy placement previously. Verified that he was diagnosed with CLL. He was following up with in [place] in [place], states that he needs every 3 month follow-up but he hasn't started any treatment yet. Admits to daily alcohol use 1812 ounces beer per day. States he has shakes and chills off alcohol but denies any seizures. States he doesn't feel well and possibly having withdrawal symptoms. Reports dizziness, lightheadedness. He also reports his vision is becoming blurry since yesterday he, uses glasses for reading only. Otherwise, denies SOB/ dyspnea. Denies chest pain, palpitations , headaches. Denies fevers, chills, n/v/d. 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 Hiatal hernia CLL Past Surgical History Tonsillectomy Umbilical hernia repair Urostomy Left nephrostomy Reported Medications Reported Meds & Active Scripts Active No Active Prescriptions or Reported Medications Active Ordered Medications Current Medications Medications (Trade) Dose Ordered Sig/Clemente Route Start Time Stop Time Status Last Admin (Romazicon Inj) 0.2 mg Q1M PRN IV PUSH 08/14/16 21:15 (Ativan) 1 mg Q4H PRN PO 08/14/16 21:15 08/15/16 11:41 (Ativan Inj) 1 mg Q4H PRN IV PUSH 08/14/16 21:15 (Ativan) 2 mg Q2H PRN PO 08/14/16 21:15 (Ativan Inj) 2 mg Q2H PRN IV PUSH 08/14/16 21:15 (Ativan Inj) 2 mg Q1H PRN IV PUSH 08/14/16 21:15 (Ativan Inj) 2 mg Q15M PRN IV PUSH 08/14/16 21:15 08/14/16 21:31 (Atarax) 50 mg Q6H PRN PO 08/15/16 11:30 (Benadryl) 50 mg HS PRN PO 08/15/16 11:30 (Cymbalta Dr) 30 mg BID PO 08/15/16 15:00 08/15/16 14:47 (Motrin) 600 mg Q6H PRN PO 08/15/16 14:00 08/15/16 14:47 (Milk Of Magnesia Liq) 30 ml DAILY PRN PO 08/15/16 14:00 (Mag-Al Plus Susp Liq) 30 ml Q6H PRN PO 08/15/16 14:00 (Habitrol 21 Mg Patch.24 Hr) 1 patch DAILY T-DERMAL 08/16/16 09:00 Miscellaneous Information 1 HS T-DERMAL 08/16/16 21:00 Family History Dad with pancreatic cancer, age 84 Mother with unknown past medical history, past away when patient was 1-year-old Social History Reports alcohol use 1812 ounces beer per day Smokes one pack per day for 30 years Denies illicit drug use Physical Exam Vital Signs Vital Signs Date Time Temp Pulse Resp B/P Pulse Ox O2 Delivery O2 Flow Rate FiO2 08/15/16 12:01 98.5 85 18 147/76 96 08/15/16 10:18 89 18 123/72 92 Room Air 08/15/16 06:47 98.0 80 16 136/70 98 08/15/16 06:33 98.0 80 16 136/70 98 08/15/16 02:05 97.8 88 16 137/77 96 08/14/16 21:16 98.0 100 16 164/82 97 Physical Exam GENERAL: This is a well-nourished, well-developed patient, in no apparent distress. SKIN: Warm and dry. Lower back scar from urostomy, nephrectomy. Abdominal scar from hernia repair. HEAD: Atraumatic. Normocephalic. No temporal or scalp tenderness. EYES: Pupils equal round and reactive. Extraocular motions intact. No scleral icterus. No injection or drainage. ENT: Nose without bleeding. Throat without erythema. Uvula midline. Airway patent. NECK: Trachea midline. No JVD or lymphadenopathy. CARDIOVASCULAR: Regular rate and rhythm without murmurs, gallops, or rubs. RESPIRATORY: Clear to auscultation. Breath sounds equal bilaterally. No wheezes , rales, or rhonchi. GASTROINTESTINAL: Abdomen soft, nondistended. Abdomen tenderness to light palpation . MUSCULOSKELETAL: Extremities without clubbing, cyanosis, or edema. NEUROLOGICAL: Awake and alert. Oriented to person, place. Motor and sensory grossly within normal limits. Normal speech. Result Diagram: 08/14/16 1015 08/14/16 1015 Assessment and Plan Problem List: (1) Alcohol abuse with intoxication ICD Code: F10.129 Status: Acute (2) Major depression ICD Code: F32.9 Status: Acute (3) Back pain ICD Code: M54.9 Status: Acute (4) DM2 (diabetes mellitus, type 2) ICD Code: E11.9 Status: Acute Assessment and Plan Patient is a 56-year-old male with primary medical history of anxiety, depression, DM 2, left-sided hydronephrosis, hiatal hernia, HTN, EtOH abuse who came into the hospital under Caba act for suicidal ideation. He is now admitted to inpatient psychiatry unit for further evaluation. Consulted for medical management. Anxiety, depression, suicidal ideation - Managed by psychiatry team EtOH abuse - Patient reports having shakes and chills when of alcohol, no seizures. - [facility] protocol - Monitor for withdrawals - Folic acid, thiamine daily Tobacco abuse - 30+ year smoking history. - Nicotine patch CLL, leukocytosis - Has not started treatment yet. - Follow up as an outpatient. - Patient has a schedule of every 3 months being checked at the [place]. DM 2 - Last hemoglobin A1c 6.6 patient was started on metformin 500 mg twice a day - Restart metformin 500 mg twice a day - Insulin sliding scale - Monitor Accu-Cheks - Check hemoglobin A1c HTN, history - May benefit with starting lisinopril if BP trend increase - Monitor BP trend DVT prop ambulatory Thank you for this consultation. We will follow patient with you. Code Status Full code Discussed Condition With Patient, nursing This note was transcribed by scribe [Ran Ball]. I, Dr. Dayne Valdez personally performed the history, physical exam, and medical decision making; and confirmed the accuracy of the information in the transcribed note. Authenticated by Dr. Dayne Valdez on 08/15/16 at 21:52. Problem Qualifiers (1) Major depression: Qualified Code: F33.3 - Severe episode of recurrent major depressive disorder, with psychotic features (2) Back pain: Qualified Code: M54.5 - Left-sided low back pain without sciatica, unspecified chronicity Ran Nuñez Aug 15, 2016 16:16 Dayne Valdez MD Aug 15, 2016 21:52
[2016-08-15] MEDS: diphenhydrAMINE HCL 50 MG CAP - HS PRN PO (20:50)
[2016-08-15] MEDS ORDERED: REMOVE OLD NICOTINE PATCH T-DERMAL SCH (21:00)
[2016-08-16] MEDS: LORazepam 2 MG TAB PO PRN ×2 (05:11→19:48)
[2016-08-16 06:07] VITALS: BP 127/60; PULSE 71; RESP 18; TEMP 98.5; O2SAT 97
[2016-08-16 07:24] LABS: HDL CHOLESTEROL 57.6 MG/DL (40.0-60.0); LDL CHOLESTEROL 82 MG/DL (0-99)
[2016-08-16] MEDS ORDERED: NICOTINE 21 MG/24 HR PATCH T-DERMAL SCH (09:00)
[2016-08-16] MEDS: DULoxetine HCl DR 30 MG CAP PO SCH ×2 (10:46→21:36)
--- NOTE | 2016-08-16 11:27 | PD.PSY.CON ---
Provisional Diagnosis Admission Date Aug 15, 2016 at 10:26 [place] I. Major depression recurrent severe with psychotic features f 33.3, alcohol abuse with intoxication F10.129 History of Present Illness Service Psychiatry Consult Requested By Primary Care Physician [facility] HPI Patient is a 56-year-old [facility] emergency room the [place] act signed by the [place] [employer] dated 08-29 at 11:17 AM that document reviewed and agreed with essentially stating that the subject stated he wants to kill himself by jumping in front of a moving vehicle patient seen screened in the ED blood alcohol level of 146, urine toxicology negative of interest the patient was hospitalized here 04/21/16 through 04/26/[address] langston discharged on Cymbalta. Patients had multiple prior contacts with us primarily related to nephrology and kidney issues. Though there has been some alcohol related issues in the past also. Patient seen in his room with nurse Romina and medical student Steve. She laying in his bed twisting in bed as if in discomfort from low back issues. Is also somewhat labile and at times somewhat tearful stating he feels hopeless helpless and worthless having issues with relationships employment and perhaps some abandonment by his family origin. He does acknowledge being an alcoholic was sitting he had 78 months of sobriety prior to she relapsed about a week ago. He does acknowledge a detox in the [place] area a couple of years ago. He states he moved from [place] to [place] about 3 months ago to make a new start. This did not work out. He then decided to come towards [facility] on a about a week ago perhaps get some enjoyment out of race week. This did not work. While he was in the upper stand see have the urge to jump off of that was only prevented because of the nearby presence of children. He continues to have active suicidal ideation and a plan that he would take the suicide pill if offered to him. Patient denies any physical or sexual abuse as a child he says there is history of alcoholism his family. Patient has had prior psychiatric hospitalizations as mentioned above also [facility] related to his alcohol abuse. Patient has been once, his second about 2 years ago April. At this time patient does meet criteria for involuntary psychiatric hospitalization under the [place] act I'll do first opinion request second opinion. I do feel he has capacity to sign for medications. We did discuss medications it appears she is not compliant with his Cymbalta at the last hospitalization we'll restart that at 3 mg twice a day we'll also place him on the ciwa protocol. Will refrain from other benzodiazepines will refrain from opiates at this time and offer him Motrin. Patient is a he gets his care [facility] he said he might be willing to look at a [facility] type longterm. Patient seen by this physician for second opinion. This physician agrees with Dr. Peters, the patient is unable to care for himself. Review of Systems Except as stated in HPI: all other systems reviewed are Neg Past Family Social History Coded Allergies: No Known Allergies (Unverified , 08/14/16) Discontinued Scripts Duloxetine DR 60 Mg Capdr60 Mg PO DAILY 15 Days Ref 1 Prov:Rishi Langston MD 04/26/16 Hydrocodone-Acetaminophen 10-325 mg Tab1 Tab PO Q4H PRN (PAIN SCALE 7 TO 10) # 20 TAB Prov:Zion Elena MD 04/26/16 Cyclobenzaprine (Flexeril)10 Mg Tab10 Mg PO Q8HR PRN (MUSCLE SPASM) #20 TAB Prov:Zion Elena MD 04/26/16 Metformin (Glucophage)500 Mg Wmp146 Mg PO BIDPC #62 TAB Prov:Zion Elena MD 04/26/16 Current Medications Medications (Trade) Dose Ordered Sig/Clemente Route Start Time Stop Time Status Last Admin (Romazicon Inj) 0.2 mg Q1M PRN IV PUSH 08/14/16 21:15 (Ativan) 1 mg Q4H PRN PO 08/14/16 21:15 08/15/16 20:50 (Ativan Inj) 1 mg Q4H PRN IV PUSH 08/14/16 21:15 (Ativan) 2 mg Q2H PRN PO 08/14/16 21:15 08/16/16 05:11 (Ativan Inj) 2 mg Q2H PRN IV PUSH 08/14/16 21:15 (Ativan Inj) 2 mg Q1H PRN IV PUSH 08/14/16 21:15 (Ativan Inj) 2 mg Q15M PRN IV PUSH 08/14/16 21:15 08/14/16 21:31 (Atarax) 50 mg Q6H PRN PO 08/15/16 11:30 (Benadryl) 50 mg HS PRN PO 08/15/16 11:30 08/15/16 20:50 (Cymbalta Dr) 30 mg BID PO 08/15/16 15:00 08/16/16 10:46 (Motrin) 600 mg Q6H PRN PO 08/15/16 14:00 08/15/16 20:51 (Milk Of Magnesia Liq) 30 ml DAILY PRN PO 08/15/16 14:00 (Mag-Al Plus Susp Liq) 30 ml Q6H PRN PO 08/15/16 14:00 (Habitrol 21 Mg Patch.24 Hr) 1 patch DAILY T-DERMAL 08/16/16 09:00 Miscellaneous Information 1 HS T-DERMAL 08/16/16 21:00 Patient's Strengths (min. 2) Patient verbal label access healthcare Physical Exam Vital Signs Vital Signs Date Time Temp Pulse Resp B/P Pulse Ox O2 Delivery O2 Flow Rate FiO2 08/16/16 06:07 98.5 71 18 127/60 97 08/15/16 10:18 Room Air Mental Status Examination Speech: Hesitant, Tangential Orientation: x3 Memory: Unremarkable Thought Process: Linear Thought Content: Unremarkable, Paranoid (mildly) Hallucination Type: Auditory (vague), Visual (vague) Attention and Concentration: Easily Distracted, Other (fair) Suicidal Ideation: Yes (patient states he would take the suicide pill) Previous Suicide Attempts: Yes Homicidal Ideation: No Previous Homicide Attempts: No Insight: Poor Judgment: Poor Affect: Other (increase range and intensity) Mood: Sad Motor Activity: Abnormal gait-specify (complains of continue chronic back pain) Assessment & Plan Problem List: (1) Major depression ICD Code: F32.9 (2) Alcohol abuse with intoxication ICD Code: F10.129 Assessment & Plan Estimated LOS: days concur with Request HC Surrog/Guard Advoc?: No Problem Qualifiers (1) Major depression: Qualified Code: F33.3 - Severe episode of recurrent major depressive disorder, with psychotic features Viet Tijerina MD Aug 16, 2016 11:27
--- NOTE | 2016-08-16 14:17 | HHI.PYPN ---
Subjective Remarks Patient seen in his room with medical student Steve and nurse Aishwarya. Patient laying in bed responses are brief quiet slow with very little affect. He did state he had some visual and auditory hallucinations last night of multiple people talking at him through the night he states this is the first time this has occurred. He did acknowledge some mild withdrawal symptoms years ago with his alcohol but never any hallucinations. Patient compliant with his medications. States he continues suicidal continues to state he would take the suicide pill. For now continue treatment no change need to observe if this phenomena occurs again tonight Review of Systems Except as stated in HPI: all other systems reviewed are Neg Objective Alert: Yes [place]: Person, Place, Date Mood: Calm, Depressed Affect: Other (decreased range and intensity) Memory Intact: Comment (there) Hallucinations: Auditory, Visual Delusions: No Delusion Type: Other (vigilant) Suicidal: Intent, Plan (would take suicide pill), Ideation Homicidal: Ideation Insight/Judgment Poor Labs Test 08/16/16 06:38 Triglycerides Level 118 MG/DL Cholesterol Level 163 MG/DL LDL Cholesterol 82 MG/DL HDL Cholesterol 57.6 MG/DL Cholesterol/HDL Ratio 2.82 RATIO Vitals/IOs Vital Signs Date Time Temp Pulse Resp B/P Pulse Ox O2 Delivery O2 Flow Rate FiO2 08/16/16 06:07 98.5 71 18 127/60 97 08/15/16 10:18 Room Air Assessment & Plan Problem List: (1) Major depression ICD Code: F32.9 (2) Alcohol abuse with intoxication ICD Code: F10.129 Assessment & Plan Estimated LOS: days patient continues depressed no exhibiting some psychotic features with auditory visual hallucinations, continue suicidal with intent and plan to be willing to take the suicide pill Justification for Cont. Inpt. At this time patient will decompensate the placed in a lower level of care Discharge Planning To be determined Request HC Surrog/Guard Advoc?: No Problem Qualifiers (1) Major depression: Qualified Code: F33.3 - Severe episode of recurrent major depressive disorder, with psychotic features Arcenio Peters MD Aug 16, 2016 14:17
[2016-08-16 16:01] VITALS: BP 137/66; PULSE 74; RESP 18; TEMP 96.8; O2SAT 97
[2016-08-16 19:15] LABS: HEMOGLOBIN A1a 1.3 %; HEMOGLOBIN A1b 1.8 %; HEMOGLOBIN Ao 84.7 %; HEMOGLOBIN LA1C 1.6 %; HEMOGLOBIN P3 3.7 %
[2016-08-16] MEDS: IBUPROFEN 600 MG TAB PO PRN (19:49)
[2016-08-16] MEDS: REMOVE OLD PATCH T-DERMAL SCH (21:00)
[2016-08-16] MEDS: diphenhydrAMINE HCL 50 MG CAP - HS PRN PO (21:36)
[2016-08-17] MEDS: IBUPROFEN 600 MG TAB PO PRN ×2 (01:09→16:38)
[2016-08-17] MEDS: LORazepam 2 MG TAB PO PRN (01:09)
[2016-08-17] MEDS: hydrOXYzine HCL 50 MG TAB PO PRN (01:11)
[2016-08-17 06:12] VITALS: BP 151/82; PULSE 80; RESP 20; TEMP 97.9; O2SAT 96
[2016-08-17] MEDS: NICOTINE 21 MG/24 HR PATCH T-DERMAL SCH ×2 (09:00→09:48)
[2016-08-17] MEDS: DULoxetine HCl DR 30 MG CAP PO SCH ×2 (09:46→22:06)
[2016-08-17] MEDS ORDERED: DULO1CAP2 PO (12:58)
--- NOTE | 2016-08-17 13:11 | HHI.PYPN ---
Subjective Remarks Patient seen today in his room with floor staff. Patient now stating that he wishes discharged today he is denying suicidality homicidality voices or visions. This is remarkable turnaround from yesterday. One further inquiring about this he did request that he be allowed to go outside to smoke 1 cigarette. We did discuss this. Patient remains consistent with denial of suicidality perceptual abnormalities will consider discharge tomorrow with follow-up through the [facility] Review of Systems Except as stated in HPI: all other systems reviewed are Neg Objective Alert: Yes [place]: Person, Place, Date Mood: Calm, Depressed Affect: Other (decreased range and intensity) Memory Intact: Comment (there) Hallucinations: Auditory (denies today), Visual (denies today) Delusions: No Delusion Type: Other (vigilant) Suicidal: Intent (denies today), Plan (denies today), Ideation (denies today) Homicidal: Ideation (denies today) Insight/Judgment Poor Vitals/IOs Vital Signs Date Time Temp Pulse Resp B/P Pulse Ox O2 Delivery O2 Flow Rate FiO2 08/17/16 06:12 97.9 80 20 151/82 96 08/15/16 10:18 Room Air Assessment & Plan Problem List: (1) Major depression ICD Code: F32.9 (2) Alcohol abuse with intoxication ICD Code: F10.129 Assessment & Plan Estimated LOS: days patient appears to be responding to treatment, and improving with the psychotic features. Though there may be a component of manipulation do is desiring a cigarette for now continue treatment Justification for Cont. Inpt. At this time patient will decompensate the placed in the lower level of care Discharge Planning To be determined Request HC Surrog/Guard Advoc?: No Problem Qualifiers (1) Major depression: Qualified Code: F33.3 - Severe episode of recurrent major depressive disorder, with psychotic features Arcenio Peters MD Aug 17, 2016 13:11
--- NOTE | 2016-08-17 14:54 | HHI.PR ---
Subjective Remarks Follow-up visit on patient with diabetes, left-sided hydronephrosis, hypertension, CLL. Patient seen and examined today. Patient reports persistent left-sided low back pain that radiates to the right abdomen. Patient states this is chronic and ongoing for the past year. Patient reports hallucinations feeling things in his hands that aren't there and seeing people sitting at the bedside that are not there is well. She denies any nausea, vomiting, change in his chronic abdominal pain or diarrhea. He denies any headache, dizziness, palpitations or change in vision. He denies any shortness of breath or chest pain. Objective Vitals Vital Signs Date Time Temp Pulse Resp B/P Pulse Ox O2 Delivery O2 Flow Rate FiO2 08/17/16 06:12 97.9 80 20 151/82 96 08/16/16 16:01 96.8 74 18 137/66 97 Result Diagram: 08/14/16 1015 08/14/16 1015 Objective Remarks GENERAL: This is a well-nourished, well-developed patient, in no apparent distress. Awake and alert. Appears comfortable lying in bed. SKIN: Warm and dry. Lower back scar from urostomy, nephrectomy. Abdominal scar from hernia repair. HEENT: Atraumatic. Normocephalic. EOMI. MMM. CARDIOVASCULAR: Regular rate and rhythm without murmurs, gallops, or rubs. RESPIRATORY: Clear to auscultation. Breath sounds equal bilaterally. No wheezes , rales, or rhonchi. GASTROINTESTINAL: Abdomen soft, nondistended. Abdomen tenderness to light palpation with stethoscope over left quadrant. MUSCULOSKELETAL: Extremities without clubbing, cyanosis, or edema. NEUROLOGICAL: Awake and alert. Oriented to person, place. Motor and sensory grossly within normal limits. Normal speech. Medications and IVs Current Medications Medications (Trade) Dose Ordered Sig/Clemente Route Start Time Stop Time Status Last Admin (Romazicon Inj) 0.2 mg Q1M PRN IV PUSH 08/14/16 21:15 (Ativan) 1 mg Q4H PRN PO 08/14/16 21:15 08/15/16 20:50 (Ativan Inj) 1 mg Q4H PRN IV PUSH 08/14/16 21:15 (Ativan) 2 mg Q2H PRN PO 08/14/16 21:15 08/17/16 01:09 (Ativan Inj) 2 mg Q2H PRN IV PUSH 08/14/16 21:15 (Ativan Inj) 2 mg Q1H PRN IV PUSH 08/14/16 21:15 (Ativan Inj) 2 mg Q15M PRN IV PUSH 08/14/16 21:15 08/14/16 21:31 (Atarax) 50 mg Q6H PRN PO 08/15/16 11:30 08/17/16 01:11 (Benadryl) 50 mg HS PRN PO 08/15/16 11:30 08/16/16 21:36 (Cymbalta Dr) 30 mg BID PO 08/15/16 15:00 08/17/16 09:46 (Motrin) 600 mg Q6H PRN PO 08/15/16 14:00 08/17/16 01:09 (Milk Of Magnesia Liq) 30 ml DAILY PRN PO 08/15/16 14:00 (Mag-Al Plus Susp Liq) 30 ml Q6H PRN PO 08/15/16 14:00 (Habitrol 21 Mg Patch.24 Hr) 1 patch DAILY T-DERMAL 08/16/16 09:00 08/17/16 09:00 Miscellaneous Information 1 HS T-DERMAL 08/16/16 21:00 A/P Problem List: (1) Alcohol abuse with intoxication ICD Code: F10.129 Status: Acute (2) Major depression ICD Code: F32.9 Status: Acute (3) Back pain ICD Code: M54.9 Status: Acute (4) DM2 (diabetes mellitus, type 2) ICD Code: E11.9 Status: Acute Assessment and Plan Patient is a 56-year-old male with primary medical history of anxiety, depression, DM 2, left-sided hydronephrosis, hiatal hernia, HTN, EtOH abuse who came into the hospital under [place] act for suicidal ideation. He is now admitted to inpatient psychiatry unit for further evaluation. Hospitalist services consulted for medical management. Anxiety, depression, suicidal ideation - Managed by psychiatry team EtOH abuse Patient having hallucinations - Patient reports having shakes and chills when off alcohol, no seizures. - continue CIWA protocol - Monitor for withdrawals - continue with folic acid, thiamine daily Tobacco abuse - 30+ year smoking history. - Nicotine patch - Counseled on smoking cessation CLL, leukocytosis - Has not started treatment yet. - Follow up as an outpatient. Case management consult to assist with scheduling appointment with child care counselor/oncologist at the [place] at time of discharge. - Patient has a schedule of every 3 months being checked at the [place]. DM 2 - Hemoglobin A1c 6.5 - continue metformin 500 mg twice a day - Monitor Accu-Cheks HTN, history - May benefit with starting lisinopril if BP trend increase - Continue to monitor BP trend Chronic back pain Ongoing since left nephrectomy - Continue participation with PT. PT recommends inpt rehab. DVT prop - Patient is ambulatory Discussed with patient, nursing staff and Dr. Valdez Patient appears stable from hospitalist standpoint. Will sign off. Please reconsult if needed. Problem Qualifiers (1) Major depression: Qualified Code: F33.3 - Severe episode of recurrent major depressive disorder, with psychotic features (2) Back pain: Qualified Code: M54.5 - Left-sided low back pain without sciatica, unspecified chronicity Aracelis Dai Aug 17, 2016 14:54
[2016-08-17] MEDS ORDERED: GLUCAGON 1 MG/ML VIAL OTHER PRN (15:00)
[2016-08-17] MEDS ORDERED: DEXTROSE 50% IN WATER 50 ML VIAL(D50) IV PRN (15:00)
[2016-08-17 18:09] VITALS: BP 151/81; PULSE 86; RESP 18; TEMP 98; O2SAT 98
[2016-08-17] MEDS: REMOVE OLD PATCH T-DERMAL SCH (21:00)
[2016-08-17] MEDS: diphenhydrAMINE HCL 50 MG CAP - HS PRN PO (22:15)
[2016-08-18 05:49] VITALS: BP 139/75; PULSE 71; RESP 18; TEMP 97
[2016-08-18] MEDS: DULoxetine HCl DR 30 MG CAP PO SCH ×2 (09:16→21:00)
[2016-08-18] MEDS: NICOTINE 21 MG/24 HR PATCH T-DERMAL SCH (09:17)
--- NOTE | 2016-08-18 13:52 | HHI.PYPN ---
Subjective Remarks Patient seen in his room with medical student Steve, chart reviewed. Today patient appears to be somewhat more depressed this been laying in bed. The is vague about suicidality, his vague about the voices. This also some increase hopelessness and helplessness with them. He also did state though that is been notified by the ID that he has been accepted in their [facility] program here in town on Tuesday 08/22 is showing some reluctance that appears to make a commitment to their program 5 feel this is the best opportunity he has to maintain sobriety and to recover somewhat with his mood. We'll add Abilify 5 mg in the a.m. to live medication regimen. Allow the patient to sign voluntary Review of Systems Except as stated in HPI: all other systems reviewed are Neg Objective Alert: Yes [place]: Person, Place, Date Mood: Calm, Depressed Affect: Other (decreased range and intensity) Memory Intact: Comment (there) Hallucinations: Auditory (denies today), Visual (denies today) Delusions: No Delusion Type: Other (vigilant) Suicidal: Intent (denies today), Plan (denies today), Ideation (denies today) Homicidal: Ideation (denies today) Insight/Judgment Poor Vitals/IOs Vital Signs Date Time Temp Pulse Resp B/P Pulse Ox O2 Delivery O2 Flow Rate FiO2 08/18/16 05:49 97.0 71 18 139/75 08/17/16 18:09 98 08/15/16 10:18 Room Air Assessment & Plan Problem List: (1) Major depression ICD Code: F32.9 (2) Alcohol abuse with intoxication ICD Code: F10.129 Assessment & Plan Estimated LOS: days patient remains depressed. Though this is vagueness about his suicidality or psychotic features. See medication adjustment above. Will attempt to coordinate patient's discharge with the availability of the bed at the [facility] Justification for Cont. Inpt. At this time patient will decompensate the placed in a lower level of care Discharge Planning To be determined Request HC Surrog/Guard Advoc?: No Problem Qualifiers (1) Major depression: Qualified Code: F33.3 - Severe episode of recurrent major depressive disorder, with psychotic features Arcenio Peters MD Aug 18, 2016 13:52
[2016-08-18] MEDS: IBUPROFEN 600 MG TAB PO PRN (15:17)
[2016-08-18 15:57] VITALS: BP 129/76; PULSE 71; PULSE 83; RESP 18; TEMP 97.1; TEMP 97.6; O2SAT 97
[2016-08-18] MEDS: hydrOXYzine HCL 50 MG TAB PO PRN (18:49)
[2016-08-18] MEDS: REMOVE OLD PATCH T-DERMAL SCH (21:00)
[2016-08-18] MEDS: diphenhydrAMINE HCL 50 MG CAP - HS PRN PO (21:54)
[2016-08-18] MEDS ORDERED: GLUCAGON 1 MG/ML VIAL OTHER PRN (22:00)
[2016-08-18] MEDS ORDERED: DEXTROSE 50% IN WATER 50 ML VIAL(D50) IV PRN (22:00)
[2016-08-19] MEDS: INSULIN ASPART SUPPLEMENTAL SCALE SQ SCH ×4 (06:10→21:00)
[2016-08-19 06:40] VITALS: BP 130/62; PULSE 80; RESP 16; TEMP 97.8; O2SAT 95
[2016-08-19] MEDS: DULoxetine HCl DR 30 MG CAP PO SCH ×2 (08:32→22:37)
[2016-08-19] MEDS: NICOTINE 21 MG/24 HR PATCH T-DERMAL SCH (08:34)
--- NOTE | 2016-08-19 13:44 | HHI.PYPN ---
Subjective Remarks Patient seen today in his room with nurse Priti, chart review, nurse states that patient was seen earlier today with counselor that he was crying tearfully about his depression and his inability to care for himself. However when I visited with patient he was calm alert somewhat irritable and guarded. We did discuss our conversation of yesterday related to the [facility], that that placement would be the best available for him in this [facility]. He then shared with me that he had been in the [facility] for 8 months a year or 2 ago. He then stated he wondered whether he would "be ready" I Monday to go the [facility]. I feel this a degree of manipulation now coming out with his behaviors. I did talk to a counselor there is a bed available for him on Monday. Thus the plan will be to discharge her Monday to the [facility] to follow-up the services through that facility he will be kept on his Cymbalta and the Abilify Review of Systems Except as stated in HPI: all other systems reviewed are Neg Objective Alert: Yes [place]: Person, Place, Date Mood: Calm, Depressed Affect: Other (decreased range and intensity) Memory Intact: Comment (there) Hallucinations: Auditory (denies today), Visual (denies today) Delusions: No Delusion Type: Other (vigilant) Suicidal: Intent (denies today), Plan (denies today), Ideation (denies today) Homicidal: Ideation (denies today) Insight/Judgment Poor Vitals/IOs Vital Signs Date Time Temp Pulse Resp B/P Pulse Ox O2 Delivery O2 Flow Rate FiO2 08/19/16 06:40 97.8 80 16 130/62 95 08/15/16 10:18 Room Air Intake and Output 08/18/16 08/18/16 08/19/16 08:00 16:00 00:00 Intake Total 240 ml 240 ml Balance 240 ml 240 ml Assessment & Plan Problem List: (1) Major depression ICD Code: F32.9 (2) Alcohol abuse with intoxication ICD Code: F10.129 Assessment & Plan Estimated LOS: days patient continues depressed that appears he is starting to show degree of manipulation related to placement issues. He has been appropriate placement available on Monday as well as [facility] Justification for Cont. Inpt. Patient continues depressed with a bed placement available after the weekend Discharge Planning To be determined Request HC Surrog/Guard Advoc?: No Problem Qualifiers (1) Major depression: Qualified Code: F33.3 - Severe episode of recurrent major depressive disorder, with psychotic features Arcenio Peters MD Aug 19, 2016 13:44
[2016-08-19] MEDS: ARIPiprazole 5 MG TAB PO SCH (16:00)
[2016-08-19 16:18] VITALS: BP 136/84; PULSE 92; RESP 18; TEMP 98.3; O2SAT 97
[2016-08-19] MEDS: REMOVE OLD PATCH T-DERMAL SCH (21:00)
[2016-08-19] MEDS: LORazepam 1 MG TAB PO PRN (22:37)
[2016-08-20] MEDS: INSULIN ASPART SUPPLEMENTAL SCALE SQ SCH ×4 (06:43→20:31)
[2016-08-20 06:48] VITALS: BP 116/72; PULSE 75; RESP 18; TEMP 97.1; O2SAT 95
[2016-08-20] MEDS: ARIPiprazole 5 MG TAB PO SCH (09:13)
[2016-08-20] MEDS: DULoxetine HCl DR 30 MG CAP PO SCH ×2 (09:13→20:31)
[2016-08-20] MEDS: NICOTINE 21 MG/24 HR PATCH T-DERMAL SCH (09:13)
--- NOTE | 2016-08-20 15:20 | HHI.PYPN ---
Subjective Remarks Pt seen and discussed with staff. He c/o depressed mood and feels hopeless about his situation. He is compliant with medications and denies side effects. No SI/HI. Objective Alert: Yes [place]: Person, Place, Date Mood: Calm, Depressed Affect: Other (decreased range and intensity) Memory Intact: Comment (there) Hallucinations: Auditory (denies today), Visual (denies today) Delusions: No Delusion Type: Other (vigilant) Suicidal: Intent (denies today), Plan (denies today), Ideation (denies today) Homicidal: Ideation (denies today) Insight/Judgment poor Vitals/IOs Vital Signs Date Time Temp Pulse Resp B/P Pulse Ox O2 Delivery O2 Flow Rate FiO2 08/20/16 06:48 97.1 75 18 116/72 95 Intake and Output 08/19/16 08/19/16 08/20/16 08:00 16:00 00:00 Intake Total 240 ml 240 ml Balance 240 ml 240 ml Assessment & Plan Problem List: (1) Major depression ICD Code: F32.9 (2) Alcohol abuse with intoxication ICD Code: F10.129 Assessment & Plan Continue current tx plan. Estimated LOS: days Justification for Cont. Inpt. risk of decompensation Request HC Surrog/Guard Advoc?: No Problem Qualifiers (1) Major depression: Qualified Code: F33.3 - Severe episode of recurrent major depressive disorder, with psychotic features Lyudmila Scott MD Aug 20, 2016 15:20
[2016-08-20 18:00] VITALS: BP 107/60; PULSE 91; RESP 18; TEMP 98.1; O2SAT 96
[2016-08-20] MEDS: hydrOXYzine HCL 50 MG TAB PO PRN (20:31)
[2016-08-20] MEDS: REMOVE OLD PATCH T-DERMAL SCH (20:32)
[2016-08-21 06:45] VITALS: BP 110/66; PULSE 75; RESP 18; TEMP 96; O2SAT 92
[2016-08-21] MEDS: INSULIN ASPART SUPPLEMENTAL SCALE SQ SCH ×4 (07:00→21:00)
[2016-08-21] MEDS: ARIPiprazole 5 MG TAB PO SCH (09:27)
[2016-08-21] MEDS: NICOTINE 21 MG/24 HR PATCH T-DERMAL SCH (09:27)
[2016-08-21] MEDS: DULoxetine HCl DR 30 MG CAP PO SCH ×2 (09:27→21:53)
--- NOTE | 2016-08-21 16:09 | HHI.PYPN ---
Subjective Remarks Pt seen and discussed with staff. He has been compliant with medications and denies side effects. He has been cooperative with care. He spent some time out of room this morning,but has otherwise been seclusive to room. No tearful episodes. Denies SI/HI. Objective Alert: Yes [place]: Person, Place, Date Mood: Calm, Depressed Affect: Other (decreased range and intensity) Memory Intact: Comment (there) Hallucinations: Auditory (denies today), Visual (denies today) Delusions: No Delusion Type: Other (vigilant) Suicidal: Intent (denies today), Plan (denies today), Ideation (denies today) Homicidal: Ideation (denies today) Vitals/IOs Vital Signs Date Time Temp Pulse Resp B/P Pulse Ox O2 Delivery O2 Flow Rate FiO2 08/21/16 06:45 96.0 75 18 110/66 92 Assessment & Plan Problem List: (1) Major depression ICD Code: F32.9 (2) Alcohol abuse with intoxication ICD Code: F10.129 Assessment & Plan Estimated LOS: days Request HC Surrog/Guard Advoc?: No Problem Qualifiers (1) Major depression: Qualified Code: F33.3 - Severe episode of recurrent major depressive disorder, with psychotic features Lyudmila Scott MD Aug 21, 2016 16:09
[2016-08-21 17:12] VITALS: BP 133/74; PULSE 73; RESP 18; TEMP 97.8; O2SAT 98
--- NOTE | 2016-08-21 18:28 | HHI.PYPN ---
Subjective Remarks Pt seen and discussed with staff. He reports that he is still depressed and worried over discharge to [facility]. He states that he lost everything when he had to leave housing in [facility] due to neighbors who were dangerous and threatening. He states that he is ruminating over all he had lost. "some things were very dear to me." He remains depressed and has been isolating to his room. No medication side effects. Objective Alert: Yes [place]: Person, Place, Date Mood: Depressed Affect: Restricted Memory Intact: Comment (intact) Hallucinations: Other (none) Delusions: No Delusion Type: Other (none) Suicidal: Ideation (denies today) Homicidal: Ideation (denies today) Insight/Judgment poor Vitals/IOs Vital Signs Date Time Temp Pulse Resp B/P Pulse Ox O2 Delivery O2 Flow Rate FiO2 08/21/16 17:12 97.8 73 18 133/74 98 Assessment & Plan Problem List: (1) Major depression ICD Code: F32.9 (2) Alcohol abuse with intoxication ICD Code: F10.129 Assessment & Plan Continue current tx plan. Estimated LOS: days Justification for Cont. Inpt. monitoring for safety Request HC Surrog/Guard Advoc?: No Problem Qualifiers (1) Major depression: Qualified Code: F33.3 - Severe episode of recurrent major depressive disorder, with psychotic features Lyudmila Scott MD Aug 21, 2016 18:28
[2016-08-21] MEDS: REMOVE OLD PATCH T-DERMAL SCH (21:00)
[2016-08-21] MEDS: hydrOXYzine HCL 50 MG TAB PO PRN (22:16)
[2016-08-22 05:17] VITALS: BP 110/62; PULSE 70; RESP 16; TEMP 98; O2SAT 99
[2016-08-22] MEDS: INSULIN ASPART SUPPLEMENTAL SCALE SQ SCH ×2 (06:16→11:00)
[2016-08-22] MEDS: ARIPiprazole 5 MG TAB PO SCH (08:36)
[2016-08-22] MEDS: DULoxetine HCl DR 30 MG CAP PO SCH (08:36)
[2016-08-22] MEDS: NICOTINE 21 MG/24 HR PATCH T-DERMAL SCH (08:37)
[2016-08-22] MEDS ORDERED: ARIP1TAB11 PO (10:13)
--- NOTE | 2016-08-22 10:59 | HHI.DS ---
Psychiatry Discharge Summary Inpatient Psychiatric care?: Yes Advance Directive: No Reason Not Provided: refused Mental Health AdvanceDirective: No Health Care Proxy: No Admission Admission Date Aug 15, 2016 at 10:26 Admission Diagnosis: (1) Major depression ICD Code: F32.9 (2) Alcohol abuse with intoxication ICD Code: F10.129 Brief History Patient is a 56-year-old [facility] emergency room the [place] act signed by the [employer] dated 08-29 at 11:17 AM that document reviewed and agreed with essentially stating that the subject stated he wants to kill himself by jumping in front of a moving vehicle patient seen screened in the ED blood alcohol level of 146, urine toxicology negative of interest the patient was hospitalized here 04/21/16 through 04/26/[address] mendes discharged on Cymbalta. Patients had multiple prior contacts with us primarily related to nephrology and kidney issues. Though there has been some alcohol related issues in the past also. Patient seen in his room with nurse Vanegas and medical student Steve. She laying in his bed twisting in bed as if in discomfort from low back issues. Is also somewhat labile and at times somewhat tearful stating he feels hopeless helpless and worthless having issues with relationships employment and perhaps some abandonment by his family origin. He does acknowledge being an alcoholic was sitting he had 78 months of sobriety prior to she relapsed about a week ago. He does acknowledge a detox in the [place] area a couple of years ago. He states he moved from [place] to [place] about 3 months ago to make a new start. This did not work out. He then decided to come towards [facility] on a about a week ago perhaps get some enjoyment out of race week. This did not work. While he was in the upper stand see have the urge to jump off of that was only prevented because of the nearby presence of children. He continues to have active suicidal ideation and a plan that he would take the suicide pill if offered to him. Patient denies any physical or sexual abuse as a child he says there is history of alcoholism his family. Patient has had prior psychiatric hospitalizations as mentioned above also [facility] related to his alcohol abuse. Patient has been once, his second about 2 years ago April. At this time patient does meet criteria for involuntary psychiatric hospitalization under the [place] act I'll do first opinion request second opinion. I do feel he has capacity to sign for medications. We did discuss medications it appears she is not compliant with his Cymbalta at the last hospitalization we'll restart that at 3 mg twice a day we'll also place him on the ciwa protocol. Will refrain from other benzodiazepines will refrain from opiates at this time and offer him Motrin. Patient is a he gets his care through the [place] clinic he said he might be willing to look at a [place] type detention. Patient seen by this physician for second opinion. This physician agrees with Dr. Peters, the patient is unable to care for himself. Tobacco Use In Past 30 Days: No Tobacco Past 30 Days Alcohol Use: 4 or More Times Per Week Hospital Course Patient stay in the hospital was notable for a passiveness in isolation, he was compliant with medications. Though did not participate in any of the groups. Those of vagueness manipulativeness with this and a hopelessness. He gave mixed signals through the state of depression suicidality voices and visions. Then again he at times appeared to be looking to get a cigarette. In this event it appears that today [facility] He is reluctantly willing to go there. It seems he is becoming somewhat institutionalized with us. Today he does denies suicidality, today with me also denies voices or visions today with me.. We have verify the placement of domiciliary. If it is verified patient to be discharged today left facility with Rx 1 month. With [facility] transported patient to the outpatient [place] clinic to get the process started Results Blood Pressure 110 / 62 Vital Signs Date Time Temp Pulse Resp B/P Pulse Ox O2 Delivery O2 Flow Rate FiO2 08/22/16 05:17 98.0 70 16 110/62 99 Alcohol blood level 146negative urine toxicology Summary of Procedures None done Pending results at discharge: No Medications # of Antipsychotic meds at D/C: 1 Approp Antipsych med options 1 - Minimum of three failed multiple trials of monotherapy. 2 - Documented plan to taper to monotherapy due to previous use of multiple meds OR cross-taper in progress at D/C. 3 - Documentation of augmentation of Clozapine. 4 - Justification other than those listed in allowable values 1-3, document here : Discharge Discharge Date: Aug 22, 2016 Discharge Diagnosis: (1) Alcohol abuse with intoxication Diagnosis: Secondary ICD Code: F10.129 (2) Major depression Diagnosis: Principal ICD Code: F32.9 Mental Status Exam at Disch Alert oriented stockily built , [place], is normoactive. Mood is euthymic to somewhat restricted and mildly dysphoric slight decreased range intensity of the affect. Speech rate and rhythm are within normal limits though no formal thought disorder. No auditory or visual hallucinations no delusions. Insight and judgment was poor cognition grossly intact Pt Condition on Discharge: Stable Discharge Disposition: ACLF/DETENTION Discharge Instructions Diet Instructions: As Tolerated, No Restrictions Activities you can perform: Regular-No Restrictions Scheduled Appointment: [place] Appointment Date: Aug 19, 2016 Appointment Time: 1:30 Discharge Time > 30 minutes Discharge/Advance Care Plan Health Problems: (1) Major depression (2) Alcohol abuse with intoxication Goals to promote your health * To prevent worsening of your condition and complications * To maintain your health at the optimal level Directions to meet your goals Take your medications as prescribed Follow your dietary instruction Follow activity as directed Keep your appointments as scheduled Take your immunizations and boosters as scheduled If your symptoms worsen call your PCP, if no PCP go to Urgent Care Center or Emergency Room For 24 questions related to your inpatient stay or results of tests pending at discharge, please contact Dr. Arcenio Peters at Smoking is Dangerous to Your Health. Avoid second hand smoking Problem Qualifiers (1) Major depression: Qualified Code: F33.3 - Severe episode of recurrent major depressive disorder, with psychotic features Arcenio Peters MD Aug 22, 2016 10:59
== END 2016-08-22 14:12 | DRG 881 ==
LOC: NEPD 11:39 → NEDA 08-15 10:26 → H260 08-15 11:49
PROVIDERS: ADMIT Psychiatry & Neurology Psychiatry; ATTEND Psychiatry & Neurology Psychiatry
DX: F32.9 Major depressive disorder, single episode, unspecified (principal); C91.10 Chronic lymphocytic leukemia of B-cell type not having achieved remission; I10 Essential (primary) hypertension; F10.129 Alcohol abuse with intoxication, unspecified; G89.29 Other chronic pain; Y90.6 Blood alcohol level of 120-199 mg/100 ml; M54.5 Low back pain; F17.210 Nicotine dependence, cigarettes, uncomplicated; Z90.5 Acquired absence of kidney; K44.9 Diaphragmatic hernia without obstruction or gangrene; E11.9 Type 2 diabetes mellitus without complications
CPT/HCPCS: 80053; 80061; 80307; 81001; 82948; 83036; 83690; 85007; 85027; 96374; J1815; J2060; Q0163

== ENCOUNTER 2016-09-27 10:05 | Emergency (ER) | payer OTHER ==
[~2016-09-27] VITALS: Ht 162.6 cm; Wt 74.0 kg
[~2016-09-27 10:05] MED LIST changes: +ARIP1TAB11 PO; -CYCL1TAB29 PO; +DULO1CAP2 PO; -DULO1CAP3 PO; -HYDR-3583 PO; -METF500 PO
[2016-09-27 10:06] VITALS: BP 129/82; PULSE 120; RESP 20; TEMP 99.4; O2SAT 99
[2016-09-27] MEDS ORDERED: DULO1CAP2 PO (10:19)
--- NOTE | 2016-09-27 10:38 | PD ---
HPI . nausea, vomiting and possible fever since 1 am Chief Complaint: Cold / Flu Symptoms Time Seen by Provider: 10:38 Travel History International Travel<30 days: No Contact w/Intl Traveler<30days: No Traveled to known affect area: No History of Present Illness HPI 56-year-old male here with complaints of sudden onset of nausea, vomiting and fatigue at 1 AM this morning. Patient tells me that yesterday he had a [employer] sandwich and this morning he started burping and tasted the sandwich in his throat. He says he also developed some nausea and vomiting and had several episodes of vomiting. He reports feeling fatigue and thinks he may have had a fever. He denies any chills. He admits to a slight cough, but it's nonproductive. This has been going on for a little bit of time. He has no other complaints, but says overall he just doesn't feel well and decided to come to the emergency department for evaluation. He denies any chest pain or shortness of breath. He also denies any diaphoresis or abdominal pain. PFSH Past Medical History Autoimmune Disease: No Anxiety: Yes Depression: Yes Heart Rhythm Problems: Yes (parkinson-white syndrome) Cancer: No Cardiovascular Problems: Yes High Cholesterol: Yes Endocrine: Yes Gastrointestinal Disorders: Yes Genitourinary: Yes (Left sided hydronephrosis) Hiatal Hernia: Yes Hypertension: Yes Immune Disorder: No Implanted Vascular Access Dvce: No Musculoskeletal: No Neurologic: No Psychiatric: Yes Reproductive: No Respiratory: No Renal Failure: Yes Influenza Vaccination: No Past Surgical History Abdominal Surgery: Yes (umbilical hernia repair) Genitourinary Surgery: Yes (urostomy, L nephrectomy) Gynecologic Surgery: No Oral Surgery: Yes (tonsillectomy) Tonsillectomy: Yes Other Surgery: Yes (NEPHROSTOMY) Social History Alcohol Use: Yes Tobacco Use: Yes (02/16 ppd) Substance Use: No Allergies-Medications (Allergen,Severity, Reaction): Coded Allergies: No Known Allergies (Unverified , 09/27/16) Reported Meds & Prescriptions Reported Meds & Active Scripts Active Zofran Odt (Ondansetron Odt) 4 Mg Tab 4 Mg SL Q8HR PRN Reported Duloxetine DR (Duloxetine HCl) 30 Mg Capdr 90 Mg PO DAILY Review of Systems General / Constitutional: No: Fever Eyes: No: Visual changes HENT: No: Headaches Cardiovascular: No: Chest Pain or Discomfort Respiratory: No: Shortness of Breath Gastrointestinal: Positive: Nausea, Vomiting, No: Abdominal Pain Genitourinary: No: Dysuria Musculoskeletal: No: Pain Skin: No Rash Neurologic: No: Weakness Psychiatric: No: Depression Endocrine: No: Polydipsia Hematologic/Lymphatic: No: Easy Bruising Physical Exam Narrative GENERAL: AAO x 3, no acute distress, Well-nourished, well-developed patient. SKIN: Warm and dry. No visible rashes or bruising. HEAD: Normocephalic and atraumatic. EYES: No scleral icterus. No injection or drainage. EOM intact, PERRLA ENT: No nasal drainage noted. Mucous membranes pink. Airway patent. NECK: Supple, trachea midline. No JVD. CARDIOVASCULAR: Regular rate and rhythm without murmurs, gallops, or rubs. RESPIRATORY: Breath sounds equal bilaterally. No accessory muscle use. No rhonchi or rales. GASTROINTESTINAL: Abdomen soft, non-tender, nondistended. no rebound or guarding , no boss's sign or mcburney point tenderness EXTREMITIES: No cyanosis or edema. BACK: No obvious deformity. No CVA tenderness. 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 Data Data Last Documented VS Vital Signs Date Time Temp Pulse Resp B/P Pulse Ox O2 Delivery O2 Flow Rate FiO2 09/27/16 12:48 86 09/27/16 12:20 19 130/69 94 Room Air 09/27/16 10:06 99.4 Orders Electrocardiogram (09/27/16 ) Complete Blood Count With Diff (09/27/16 10:41) Basic Metabolic Panel (Bmp) (09/27/16 10:41) Chest, Single Ap (09/27/16 ) Ondansetron Inj (Zofran Inj) (09/27/16 10:45) Iv Access Insert/Monitor (09/27/16 10:41) Sodium Chlor 0.9% 1000 Ml Inj (Ns 1000 M (09/27/16 11:15) Prochlorperazine Inj (Compazine Inj) (09/27/16 12:00) Labs Laboratory Tests Test 09/27/16 10:50 White Blood Count 18.0 TH/MM3 Red Blood Count 5.03 MIL/MM3 Hemoglobin 16.0 GM/DL Hematocrit 48.4 % Mean Corpuscular Volume 96.2 FL Mean Corpuscular Hemoglobin 31.8 PG Mean Corpuscular Hemoglobin 33.1 % Concent Red Cell Distribution Width 16.2 % Platelet Count 89 TH/MM3 Mean Platelet Volume 7.8 FL Neutrophils (%) (Auto) % Lymphocytes (%) (Auto) % Monocytes (%) (Auto) % Eosinophils (%) (Auto) % Basophils (%) (Auto) % Neutrophils # (Auto) TH/MM3 Lymphocytes # (Auto) TH/MM3 Monocytes # (Auto) TH/MM3 Eosinophils # (Auto) TH/MM3 Basophils # (Auto) TH/MM3 CBC Comment AUTO DIFF Differential Total Cells 100 Counted Neutrophils % (Manual) 66 % Band Neutrophils % 3 % Lymphocytes % 29 % Monocytes % 2 % Neutrophils # (Manual) 12.4 TH/MM3 Differential Comment FINAL DIFF MANUAL Platelet Estimate LOW Platelet Morphology Comment NORMAL Red Cell Morphology Comment NORMAL Sodium Level 141 MEQ/L Potassium Level 3.9 MEQ/L Chloride Level 106 MEQ/L Carbon Dioxide Level 27.3 MEQ/L Anion Gap 8 MEQ/L Blood Urea Nitrogen 17 MG/DL Creatinine 1.26 MG/DL Estimat Glomerular Filtration 59 ML/MIN Rate Random Glucose 211 MG/DL Calcium Level 8.5 MG/DL MDM Medical Decision Making Medical Screen Exam Complete: Yes Emergency Medical Condition: Yes Medical Record Reviewed: Yes Differential Diagnosis gastroenteritis, influenza, less likely pneumonia, Narrative Course 56-year-old male here with sudden onset of nausea, vomiting and fatigue. Patient also reports a mild cough. On examination there are no gross abnormalities, other than some mild tachycardia. He does not have abdominal tenderness, rebound or guarding. He also has some chronic back pain, but tells me that he has that followed at [place] and that is not why he is here. I will go ahead and give him Zofran. I will also start him on IV fluids. IV access was obtained. Labs were ordered. Chest x-ray also ordered to rule out pneumonia. EKG reviewed with sinus tachycardia: HR 109. S1 Q3 T3, however patient has no complaints of chest pain or shortness of breath. He only admits to intermittent cough occasionally. Patient's white count is elevated at 18. I reviewed some of his prior labs. In August patient had a CBC drawn and it had elevated white count. He also had increased lymphocytes and smudge cells present. Laboratory Tests Test 09/27/16 10:50 White Blood Count 18.0 TH/MM3 Red Blood Count 5.03 MIL/MM3 Hemoglobin 16.0 GM/DL Hematocrit 48.4 % Mean Corpuscular Volume 96.2 FL Mean Corpuscular Hemoglobin 31.8 PG Mean Corpuscular Hemoglobin 33.1 % Concent Red Cell Distribution Width 16.2 % Platelet Count 89 TH/MM3 Mean Platelet Volume 7.8 FL Neutrophils (%) (Auto) % Lymphocytes (%) (Auto) % Monocytes (%) (Auto) % Eosinophils (%) (Auto) % Basophils (%) (Auto) % Neutrophils # (Auto) TH/MM3 Lymphocytes # (Auto) TH/MM3 Monocytes # (Auto) TH/MM3 Eosinophils # (Auto) TH/MM3 Basophils # (Auto) TH/MM3 CBC Comment AUTO DIFF Differential Total Cells 100 Counted Neutrophils % (Manual) 66 % Band Neutrophils % 3 % Lymphocytes % 29 % Monocytes % 2 % Neutrophils # (Manual) 12.4 TH/MM3 Differential Comment FINAL DIFF MANUAL Platelet Estimate LOW Platelet Morphology Comment NORMAL Red Cell Morphology Comment NORMAL Sodium Level 141 MEQ/L Potassium Level 3.9 MEQ/L Chloride Level 106 MEQ/L Carbon Dioxide Level 27.3 MEQ/L Anion Gap 8 MEQ/L Blood Urea Nitrogen 17 MG/DL Creatinine 1.26 MG/DL Estimat Glomerular Filtration 59 ML/MIN Rate Random Glucose 211 MG/DL Calcium Level 8.5 MG/DL Discussed white blood cells and platelets patient. He tells me that he is aware of this. He is being followed at the [place] [facility] in [place]. He says this is something that is known about for quite some time. I discussed the case with my attending Dr. Murray. In regards to patient's nausea and vomiting, it has improved with the Zofran, however he reports that it seems it may be coming back. I provided him with some Compazine. He has no other complaints at this time. I will go ahead and discharge him with some Zofran for home usage. I believe he has some gastroenteritis. I advised him to follow-up with his primary care provider and return to the ED for any worsening of his condition. 1248: patient feels much better after compazine. Tells me his symptoms are gone. Patient verbalized understanding of instructions, questions were answered, and thanked me for their care. I advised them if their condition worsens, please return to the nearest emergency room for further care. Diagnosis Primary Impression: Gastroenteritis Patient Instructions: General Instructions Additional Instructions: Please return to emergency department if your symptoms return or worsen. Follow up with your primary care provider. Take medications as prescribed. Med/Other Pt SpecificInfo: Prescription(s) given Scripts Ondansetron Odt (Zofran Odt)4 Mg Tab4 Mg SL Q8HR PRN (Nausea/Vomiting) #30 TAB Ref 0 Prov:Asher Murray MD 09/27/16 Disposition: 01 DISCHARGE HOME Condition: Stable Padmini Macias Sep 27, 2016 10:38
[2016-09-27] MEDS ORDERED: ONDANSETRON HCL 4 MG/2 ML VIAL IV PUSH ONE (10:45)
[2016-09-27] MEDS ORDERED: SODIUM CHLOR 0.9% 1000 ML INJ 1,000 ML IV ONE (11:15)
[2016-09-27 11:18] LABS: HEMATOCRIT 48.4 % (39.0-51.0); MEAN CELL VOLUME 96.2 FL (80.0-100.0); MEAN CORPUSCULAR HEMOGLOBIN 31.8 PG (27.0-34.0); MEAN CORPUSCULAR HGB CONC 33.1 % (32.0-36.0); PLATELET COUNT 89 TH/MM3 (150-450); RED BLOOD COUNT 5.03 MIL/MM3 (4.50-5.90); RED CELL DISTRIBUTION WIDTH 16.2 % (11.6-17.2)
[2016-09-27 11:23] LABS: HEMO FLAGS AUTO DIFF
[2016-09-27 11:33] LABS: BICARBONATE 27.3 MEQ/L (21.0-32.0); POTASSIUM 3.9 MEQ/L (3.5-5.1)
--- NOTE | 2016-09-27 11:43 | RADRPT ---
EXAM DATE/TIME: 09/27/2016 11:16 [facility] COMPARISON: CHEST SINGLE AP, April 21, 2016, 8:30. INDICATIONS : Cough. MEDICAL HISTORY : Renal failure, chronic. Hypertension SURGICAL HISTORY : Nephrectomy, left. Umbilical hernia repair. Tonsillectomy. ENCOUNTER: Initial ACUITY: 1 day PAIN SCORE: 0/10 LOCATION: Bilateral chest FINDINGS: A single view of the chest demonstrates the lungs to be symmetrically aerated without evidence of mas s, infiltrate or effusion. The cardiomediastinal contours are unremarkable. Osseous structures are intact. CONCLUSION: No acute disease. Jann Burger MD on September 27, 2016 at 11:41 Board Certified Radiologist. This report was verified electronically.
[2016-09-27 11:53] LABS: BANDS 3 % (0-6); NEUTROPHIL # MANUAL DIFF 12.4 TH/MM3 (1.8-7.7); PLATELET ESTIMATE SMEAR LOW (NORMAL); PLATELET MORPHOLOGY NORMAL (NORMAL); POLYS (SEG NEUTROPHILS) 66 % (16-70); SCAN/DIFF FINAL DIFF MANUAL; WBC DIFF SAMPLE 100
[2016-09-27] MEDS ORDERED: PROCHLORPERAZINE INJ 10 MG/2 ML VIAL IV PUSH ONE (12:00)
[2016-09-27] MEDS ORDERED: ZOFR4TAB3 SL (12:00)
[2016-09-27 12:20] VITALS: BP 130/69; PULSE 104; RESP 19; O2SAT 94
[2016-09-27 12:48] VITALS: PULSE 86
--- NOTE | 2016-09-27 13:35 | EKG ---
Date Performed: 09/27/2016 Time Performed: 10:57:13 PTAGE: 56 years EKG: SINUS TACHYCARDIA MARKED RIGHT AXIS DEVIATION ABNORMAL ECG Compared to prior tracing no sig nificant change PREVIOUS TRACING : 04/21/2016 08.33 DOCTOR: Noel Nevarez Interpretating Date/Time 09/27/2016 13:34:46
== END 2016-09-27 14:35 | disposition home or self-care (01) ==
LOC: NEPD 10:05
DX: K52.9 Noninfective gastroenteritis and colitis, unspecified (principal); R05 Cough; G20 Parkinson's disease; E78.00 Pure hypercholesterolemia, unspecified; I12.9 Hypertensive chronic kidney disease with stage 1 through stage 4 chronic kidney disease, or unspecified chronic kidney disease; F17.210 Nicotine dependence, cigarettes, uncomplicated; N18.9 Chronic kidney disease, unspecified; R00.0 Tachycardia, unspecified; R94.31 Abnormal electrocardiogram [ECG] [EKG]
CPT/HCPCS: 71010; 80048; 85007; 85027; 93005; 96361; 96374; 96375; 99285; J0780; J2405; J7030

== ENCOUNTER 2017-01-20 15:36 | Emergency (ER) | payer OTHER ==
[~2017-01-20] VITALS: Ht 162.6 cm; Wt 82.5 kg
[~2017-01-20 15:36] MED LIST changes: -ARIP1TAB11 PO; +ZOFR4TAB3 SL
[2017-01-20 15:38] VITALS: BP 189/96; PULSE 127; RESP 20; TEMP 98.9; O2SAT 100
[2017-01-20] MEDS ORDERED: SODIUM CHLOR 0.9% 1000 ML INJ 1,000 ML IV SCH ×2 (15:55→16:51)
[2017-01-20] MEDS ORDERED: MORPHINE SULFATE 4 MG/ML INJ IV PUSH ONE (16:00)
[2017-01-20] MEDS ORDERED: ONDANSETRON HCL 4 MG/2 ML VIAL IVP ONE (16:00)
[2017-01-20 16:30] VITALS: RESP 15
[2017-01-20 16:38] LABS: AUTOMATED NEUTROPHIL # 5.3 TH/MM3 (1.8-7.7); BASOPHIL # 0.1 TH/MM3 (0-0.2); BASOPHIL % 0.4 % (0.0-2.0); EOSINOPHIL # 0.1 TH/MM3 (0-0.4); EOSINOPHIL % 0.7 % (0.0-4.0); HEMATOCRIT 47.1 % (39.0-51.0); LYMPH % 59.7 % (9.0-44.0); LYMPHOCYTE # 8.7 TH/MM3 (1.0-4.8); MEAN CELL VOLUME 94.3 FL (80.0-100.0); MEAN CORPUSCULAR HGB CONC 33.9 % (32.0-36.0); MONO % 2.9 % (0.0-8.0); NEUT % 36.3 % (16.0-70.0); RED BLOOD COUNT 4.99 MIL/MM3 (4.50-5.90); WHITE BLOOD COUNT 14.5 TH/MM3 (4.0-11.0)
[2017-01-20 16:43] LABS: HEMO FLAGS AUTO DIFF
[2017-01-20 16:59] LABS: ALKALINE PHOSPHATASE 101 U/L (45-117); TOTAL BILIRUBIN ADULT 0.4 MG/DL (0.2-1.0)
--- NOTE | 2017-01-20 17:00 | PD ---
HPI Chief Complaint: Flank/Kidney Pain Time Seen by Provider: 15:45 Travel History International Travel<30 days: No Contact w/Intl Traveler<30days: No Traveled to known affect area: No History of Present Illness HPI 56-year-old male that presents to the ED for evaluation of left flank pain with no injury. Per patient the pain goes from the left lower back to the upper rib cage as well as the abdomen. Per patient he had a nephrectomy about 3 years ago and was told that he could have some complications because of this including scar tissue as well as pain here and there. Per patient she's has no issues with his urine or bowel movements. Per patient the pain has been For about for 5 days but today became more severe. He denies any injuries of any kind. No heavy lifting. No trauma. No rashes. No fevers chills or sweats. States that his bowel movements and urination have been normal. No allergies to medication. Has not seen anybody for this. Per patient the pain today is 10 out of 10 and some positions make it better. Moving makes it worse. PFSH Past Medical History Autoimmune Disease: No Anxiety: Yes Depression: Yes Heart Rhythm Problems: Yes (parkinson-white syndrome) Cancer: No Cardiovascular Problems: Yes High Cholesterol: Yes Diminished Hearing: No Endocrine: Yes Gastrointestinal Disorders: Yes Genitourinary: Yes (Left sided hydronephrosis) Hiatal Hernia: Yes Hypertension: Yes Immune Disorder: No Implanted Vascular Access Dvce: No Musculoskeletal: No Neurologic: No Psychiatric: Yes Reproductive: No Respiratory: No Renal Failure: Yes Tetanus Vaccination: < 5 Years Influenza Vaccination: No Past Surgical History Abdominal Surgery: Yes Genitourinary Surgery: Yes (urostomy, L nephrectomy) Gynecologic Surgery: No Oral Surgery: Yes (tonsillectomy) Tonsillectomy: Yes Other Surgery: Yes (NEPHROSTOMY) Social History Alcohol Use: No Tobacco Use: Yes Substance Use: No Allergies-Medications (Allergen,Severity, Reaction): Coded Allergies: No Known Allergies (Verified Adverse Reaction, Unknown, 01/20/17) Reported Meds & Prescriptions Reported Meds & Active Scripts Active Diclofenac Sodium DR (Diclofenac Sodium) 75 Mg Tabdr 75 Mg PO BID PRN Hydrocodone-Acetaminophen 5-325 mg Tab 1 Tab PO Q6H PRN Review of Systems Except as stated in HPI: all other systems reviewed are Neg Physical Exam Narrative GENERAL: SKIN: Warm and dry. HEAD: Atraumatic. Normocephalic. EYES: Pupils equal and round. No scleral icterus. No injection or drainage. ENT: No nasal bleeding or discharge. Mucous membranes pink and moist. Tongue is midline. No uvula deviation. NECK: Trachea midline. No JVD. CARDIOVASCULAR: Regular rate and rhythm. No murmurs, S3, S4. RESPIRATORY: No accessory muscle use. Clear to auscultation. Breath sounds equal bilaterally. GASTROINTESTINAL: Abdomen soft, non-tender, nondistended. Hepatic and splenic margins not palpable. Patient has tenderness to palpation on the left CVA as well as the left lower back as well as the left upper abdomen and left lower abdomen. Very painful with touch. MUSCULOSKELETAL: Extremities without clubbing, cyanosis, or edema. No obvious deformities. Full range of motion of the upper and lower extremities bilaterally. 2+ pulses bilaterally. NEUROLOGICAL: Awake and alert. No obvious cranial nerve deficits. Motor grossly within normal limits. Five out of 5 muscle strength in the arms and legs. Normal speech. PSYCHIATRIC: Appropriate mood and affect; insight and judgment normal. Data Data Last Documented VS Vital Signs Date Time Temp Pulse Resp B/P (MAP) Pulse Ox O2 Delivery O2 Flow Rate FiO2 01/20/17 16:30 15 01/20/17 15:38 98.9 127 189/96 (127) 100 Room Air Orders Orders Complete Blood Count With Diff (01/20/17 15:55) Comprehensive Metabolic Panel (01/20/17 15:55) Lipase (01/20/17 15:55) Lactic Acid (01/20/17 15:55) Urinalysis - C+S If Indicated (01/20/17 15:55) Ct Abd/Pel W Iv Contrast(Rout) (01/20/17 15:55) Iv Access Insert/Monitor (01/20/17 15:55) Ecg Monitoring (01/20/17 15:55) Morphine Inj (Morphine Inj) (01/20/17 16:00) Ondansetron Inj (Zofran Inj) (01/20/17 16:00) Sodium Chlor 0.9% 1000 Ml Inj (Ns 1000 M (01/20/17 15:55) Sodium Chlor 0.9% 1000 Ml Inj (Ns 1000 M (01/20/17 16:51) Hydromorphone Pf Inj (Dilaudid Pf Inj) (01/20/17 18:15) Iohexol 350 Inj (Omnipaque 350 Inj) (01/20/17 18:24) Labs Laboratory Tests Test 01/20/17 16:00 01/20/17 16:20 White Blood Count 14.5 TH/MM3 Red Blood Count 4.99 MIL/MM3 Hemoglobin 16.0 GM/DL Hematocrit 47.1 % Mean Corpuscular Volume 94.3 FL Mean Corpuscular Hemoglobin 32.0 PG Mean Corpuscular Hemoglobin Concent 33.9 % Red Cell Distribution Width 15.0 % Platelet Count 72 TH/MM3 Mean Platelet Volume 8.6 FL Neutrophils (%) (Auto) 36.3 % Lymphocytes (%) (Auto) 59.7 % Monocytes (%) (Auto) 2.9 % Eosinophils (%) (Auto) 0.7 % Basophils (%) (Auto) 0.4 % Neutrophils # (Auto) 5.3 TH/MM3 Lymphocytes # (Auto) 8.7 TH/MM3 Monocytes # (Auto) 0.4 TH/MM3 Eosinophils # (Auto) 0.1 TH/MM3 Basophils # (Auto) 0.1 TH/MM3 CBC Comment AUTO DIFF Differential Total Cells Counted 100 Neutrophils % (Manual) 34 % Lymphocytes % 63 % Monocytes % 1 % Eosinophils % 1 % Basophils % 1 % Neutrophils # (Manual) 4.9 TH/MM3 Differential Comment FINAL DIFF MANUAL Platelet Estimate LOW Platelet Morphology Comment NORMAL Red Cell Morphology Comment NORMAL Blood Urea Nitrogen 16 MG/DL Creatinine 1.14 MG/DL Random Glucose 363 MG/DL Total Protein 7.2 GM/DL Albumin 3.5 GM/DL Calcium Level 9.2 MG/DL Alkaline Phosphatase 101 U/L Aspartate Amino Transf (AST/SGOT) 19 U/L Alanine Aminotransferase (ALT/SGPT) 33 U/L Total Bilirubin 0.4 MG/DL Sodium Level 137 MEQ/L Potassium Level 3.9 MEQ/L Chloride Level 104 MEQ/L Carbon Dioxide Level 24.9 MEQ/L Anion Gap 8 MEQ/L Estimat Glomerular Filtration Rate 66 ML/MIN Lactic Acid Level 2.4 mmol/L Lipase 227 U/L Urine Color LIGHT-YELLOW Urine Turbidity CLEAR Urine pH 6.0 Urine Specific [place] 1.031 Urine Protein NEG mg/dL Urine Glucose (UA) 1000 mg/dL Urine Ketones NEG mg/dL Urine Occult Blood NEG Urine Nitrite NEG Urine Bilirubin NEG Urine Urobilinogen LESS THAN 2.0 MG/DL Urine Leukocyte Esterase NEG Urine WBC 4 /hpf Microscopic Urinalysis Comment CULT NOT INDICATED MDM Medical Decision Making Medical Screen Exam Complete: Yes Emergency Medical Condition: Yes Medical Record Reviewed: Yes Interpretation(s) CBC & BMP Diagram 01/20/17 16:00 Total Protein 7.2, Albumin 3.5, Calcium Level 9.2, Alkaline Phosphatase 101, Aspartate Amino Transf (AST/SGOT) 19, Alanine Aminotransferase (ALT/SGPT) 33, Total Bilirubin 0.4 lipase WNL UA negative Last Impressions Abdomen/Pelvis CT 01/20/17 1555 Signed Impressions: Service Date/Time: Monday, January 20, 2017 18:20 - CONCLUSION: 1. Nodular contour of the liver suggesting cirrhosis. 2. Mild splenomegaly. 3. Small esophageal varices are noted. 4. 11 mm lower pole right renal cyst. 5. Degenerative changes and scoliosis of the thoracolumbar spine. Jann Burger MD Differential Diagnosis Flank pain versus muscle strain versus muscle spasm versus pyelonephritis versus obstruction versus acute on chronic pain Narrative Course 56-year-old male that presents to the ED for evaluation of left flank pain. Patient was properly examined and was found to have signs and symptoms of unclear etiology at this time. Patient does not have a kidney but he did have significant surgery. Patient is very tender with touch. Recommend imaging trying sign of abdominal surgical emergency. At this time patient agrees with plan. Labs and imaging ordered. Patient was given IV pain medications with some relief. Labs and imaging showed no sign of acute disease other than slightly elevated as well as account as well as elevated lactic acid. Patient was given fluids and pain medication with improved. Unclear reason for the back pain. Possibly muscle skeletal. Case was discussed in my attending Dr. Guajardo who agrees with plan. Patient will be discharged home with prescriptions for pain medication instructions to have close follow with PCP. See ED worsening symptoms. Ice or warm compresses. Patient was told to need to follow-up outpatient for the cirrhosis as well as esophageal versus. Diagnosis Primary Impression: Back pain Qualified Codes: M54.5 - Low back pain Additional Impressions: Cirrhosis of liver Qualified Codes: K74.60 - Unspecified cirrhosis of liver Esophageal varices Qualified Codes: I85.00 - Esophageal varices without bleeding Patient Instructions: General Instructions, Narcotic given in the ED Additional Instructions: Take medications as prescribed. Follow-up with PCP. See ED for any worsening symptoms. Do not drink or drive while taking pain medication. Apply ice or heat as needed for pain Med/Other Pt SpecificInfo: Prescription(s) given Scripts Diclofenac Sodium DR (Diclofenac Sodium DR) 75 Mg Tabdr 75 MG PO BID Y for PAIN SCALE 1 TO 10, #20 TAB 0 Refills Prov: Patrick Ramirez MD 01/20/17 Hydrocodone-Acetaminophen (Hydrocodone-Acetaminophen) 5-325 mg Tab 1 TAB PO Q6H Y for PAIN, #14 TAB 0 Refills Prov: Patrick Ramirez MD 01/20/17 Disposition: 01 DISCHARGE HOME Condition: Hema Melgar Jan 20, 2017 17:00
[2017-01-20 17:03] LABS: ALT (GPT) 33 U/L (12-78); ANION GAP 8 MEQ/L (5-15); AST (GOT) 19 U/L (15-37); BICARBONATE 24.9 MEQ/L (21.0-32.0); BLOOD UREA NITROGEN 16 MG/DL (7-18); CHLORIDE 104 MEQ/L (98-107); GLOMERULAR FILTRATION RATE 66 ML/MIN (>89); POTASSIUM 3.9 MEQ/L (3.5-5.1); SODIUM (NA) 137 MEQ/L (136-145)
[2017-01-20 17:28] LABS: BLOOD, URINE NEG (NEG); GLUCOSE,URINE 1000 mg/dL (NEG); KETONE, URINE NEG (NEG); NITRITE,URINE NEG (NEG); URINE COLOR LIGHT-YELLOW (YELLW/STRAW)
[2017-01-20 17:29] LABS: COMMENT (UR) CULT NOT INDICATED; CULTURE IF INDICATED CULT NOT INDICATED
[2017-01-20 17:39] LABS: PLATELET COUNT 72 TH/MM3 (150-450)
[2017-01-20 17:40] LABS: BASOPHILS 1 % (0-2); EOSINOPHILS 1 % (0-4); NEUTROPHIL # MANUAL DIFF 4.9 TH/MM3 (1.8-7.7); POLYS (SEG NEUTROPHILS) 34 % (16-70); WBC DIFF SAMPLE 100
[2017-01-20 17:41] LABS: PLATELET ESTIMATE SMEAR LOW (NORMAL); PLATELET MORPHOLOGY NORMAL (NORMAL); SCAN/DIFF FINAL DIFF MANUAL
[2017-01-20] MEDS ORDERED: HYDROmorphone HCL PF 1 MG/ML VIAL IV PUSH ONE (18:15)
[2017-01-20] MEDS ORDERED: IOHEXOL 350 MG/ML 10 ML VIAL (for RAD DIAG) IVCONTRAST ONE (18:24)
--- NOTE | 2017-01-20 18:46 | PD ---
Data Data Last Documented VS Vital Signs Date Time Temp Pulse Resp B/P (MAP) Pulse Ox O2 Delivery O2 Flow Rate FiO2 01/20/17 15:38 98.9 127 20 189/96 (127) 100 Room Air Orders Orders Complete Blood Count With Diff (01/20/17 15:55) Comprehensive Metabolic Panel (01/20/17 15:55) Lipase (01/20/17 15:55) Lactic Acid (01/20/17 15:55) Urinalysis - C+S If Indicated (01/20/17 15:55) Ct Abd/Pel W Iv Contrast(Rout) (01/20/17 15:55) Iv Access Insert/Monitor (01/20/17 15:55) Ecg Monitoring (01/20/17 15:55) Morphine Inj (Morphine Inj) (01/20/17 16:00) Ondansetron Inj (Zofran Inj) (01/20/17 16:00) Sodium Chlor 0.9% 1000 Ml Inj (Ns 1000 M (01/20/17 15:55) Sodium Chlor 0.9% 1000 Ml Inj (Ns 1000 M (01/20/17 16:51) Hydromorphone Pf Inj (Dilaudid Pf Inj) (01/20/17 18:15) Iohexol 350 Inj (Omnipaque 350 Inj) (01/20/17 18:24) Labs Laboratory Tests Test 01/20/17 16:00 01/20/17 16:20 White Blood Count 14.5 TH/MM3 Red Blood Count 4.99 MIL/MM3 Hemoglobin 16.0 GM/DL Hematocrit 47.1 % Mean Corpuscular Volume 94.3 FL Mean Corpuscular Hemoglobin 32.0 PG Mean Corpuscular Hemoglobin Concent 33.9 % Red Cell Distribution Width 15.0 % Platelet Count 72 TH/MM3 Mean Platelet Volume 8.6 FL Neutrophils (%) (Auto) 36.3 % Lymphocytes (%) (Auto) 59.7 % Monocytes (%) (Auto) 2.9 % Eosinophils (%) (Auto) 0.7 % Basophils (%) (Auto) 0.4 % Neutrophils # (Auto) 5.3 TH/MM3 Lymphocytes # (Auto) 8.7 TH/MM3 Monocytes # (Auto) 0.4 TH/MM3 Eosinophils # (Auto) 0.1 TH/MM3 Basophils # (Auto) 0.1 TH/MM3 CBC Comment AUTO DIFF Differential Total Cells Counted 100 Neutrophils % (Manual) 34 % Lymphocytes % 63 % Monocytes % 1 % Eosinophils % 1 % Basophils % 1 % Neutrophils # (Manual) 4.9 TH/MM3 Differential Comment FINAL DIFF MANUAL Platelet Estimate LOW Platelet Morphology Comment NORMAL Red Cell Morphology Comment NORMAL Blood Urea Nitrogen 16 MG/DL Creatinine 1.14 MG/DL Random Glucose 363 MG/DL Total Protein 7.2 GM/DL Albumin 3.5 GM/DL Calcium Level 9.2 MG/DL Alkaline Phosphatase 101 U/L Aspartate Amino Transf (AST/SGOT) 19 U/L Alanine Aminotransferase (ALT/SGPT) 33 U/L Total Bilirubin 0.4 MG/DL Sodium Level 137 MEQ/L Potassium Level 3.9 MEQ/L Chloride Level 104 MEQ/L Carbon Dioxide Level 24.9 MEQ/L Anion Gap 8 MEQ/L Estimat Glomerular Filtration Rate 66 ML/MIN Lactic Acid Level 2.4 mmol/L Lipase 227 U/L Urine Color LIGHT-YELLOW Urine Turbidity CLEAR Urine pH 6.0 Urine Specific [place] 1.031 Urine Protein NEG mg/dL Urine Glucose (UA) 1000 mg/dL Urine Ketones NEG mg/dL Urine Occult Blood NEG Urine Nitrite NEG Urine Bilirubin NEG Urine Urobilinogen LESS THAN 2.0 MG/DL Urine Leukocyte Esterase NEG Urine WBC 4 /hpf Microscopic Urinalysis Comment CULT NOT INDICATED MDM Supervised Visit with TIARRA: Yes Narrative Course The history, exam, and medical decision-making in the associated mid-level provider note were completed with my assistance. I reviewed and agree with the findings presented. I attest that I had a [id number] encounter with the patient on the same day, and personally performed and documented my assessment and findings in the medical record. *My assessment and Findings: 56-year-old man, history of nephrectomy on the left for infection, with recurrent left flank pain. His pains been ongoing since his nephrectomy, but is never been this bad. Worse times one week. Similar episode about a month or so ago for reportedly no etiology found on his evaluation. Unclear if he had CT imaging at that time or not. Looks well. Symptoms left-sided tenderness. No evidence of zoster. We'll check labs. CT, reassess. Scripts No Active Prescriptions or Reported Meds Yassine Guajardo MD Jan 20, 2017 18:46
--- NOTE | 2017-01-20 19:05 | RADRPT ---
EXAM DATE/TIME: 01/20/2017 18:20 [facility] COMPARISON: CT ABDOMEN W/O CONTRAST, January 10, 2015, 17:51. CT ABDOMEN & PELVIS W CONTRAST, December 12, 2014, 22:55. INDICATIONS : Abdominal pain. IV CONTRAST: 75 cc Omnipaque 350 (iohexol) IV ORAL CONTRAST: No oral contrast ingested. RADIATION DOSE: 12.12 CTDIvol (mGy) MEDICAL HISTORY : Cardiovascular disease. Hypertension. Diabetes, renal failure SURGICAL HISTORY : Nephrectomy, left. ENCOUNTER: Initial ACUITY: 1 week PAIN SCALE: 7/10 LOCATION: Left flank TECHNIQUE: Volumetric scanning of the abdomen and pelvis was performed. Using automated exposure control and ad justment of the mA and/or kV according to patient size, radiation dose was kept as low as reasonably achievable to obtain optimal diagnostic quality images. DICOM format image data is available electro nically for review and comparison. FINDINGS: LOWER LUNGS: The visualized lower lungs are clear. LIVER: The liver is mildly enlarged and somewhat nodular in contour suggestive of cirrhosis. Small esophagea l varices are noted. There is no dilation of the biliary tree. No calcified gallstones. SPLEEN: The spleen is enlarged. PANCREAS: Within normal limits. KIDNEYS: The patient is status post left nephrectomy. There is no mass, stone or hydronephrosis. There is an 1 1 mm cyst within the lower pole the right kidney. ADRENAL GLANDS: Within normal limits. VASCULAR: There is no aortic aneurysm. BOWEL/MESENTERY: The stomach, small bowel, and colon demonstrate no acute abnormality. There is no free intraperitone al air or fluid. The appendix is normal. ABDOMINAL WALL: Within normal limits. RETROPERITONEUM: There is no lymphadenopathy. BLADDER: No wall thickening or mass. REPRODUCTIVE: Within normal limits. INGUINAL: There is no lymphadenopathy or hernia. MUSCULOSKELETAL: Degenerative changes and scoliosis of the thoracolumbar spine are noted. CONCLUSION: 1. Nodular contour of the liver suggesting cirrhosis. 2. Mild splenomegaly. 3. Small esophageal varices are noted. 4. 11 mm lower pole right renal cyst. 5. Degenerative changes and scoliosis of the thoracolumbar spine. Jann Burger MD on January 20, 2017 at 18:56 Board Certified Radiologist. This report was verified electronically.
[2017-01-20] MEDS ORDERED: HYDR-3516 PO (19:10)
[2017-01-20] MEDS ORDERED: DICL75TA PO (19:10)
== END 2017-01-20 20:23 | disposition home or self-care (01) ==
LOC: NEPE 15:36
DX: M54.5 Low back pain (principal); K74.60 Unspecified cirrhosis of liver; I85.00 Esophageal varices without bleeding; E78.00 Pure hypercholesterolemia, unspecified; I10 Essential (primary) hypertension; Z72.0 Tobacco use
CPT/HCPCS: 74177; 80053; 81001; 83605; 83690; 85007; 85027; 96361; 96374; 96375; 99285; J1170; J2270; J2405; J7030; Q9967

== ENCOUNTER 2017-02-03 17:25 | Inpatient (IN) | payer OTHER ==
[~2017-02-03] VITALS: Ht 162.6 cm; Wt 81.7 kg
[~2017-02-03 17:25] MED LIST changes: +DICL75TA PO; -DULO1CAP2 PO; +HYDR-3516 PO; -ZOFR4TAB3 SL
[2017-02-03 17:43] VITALS: BP 153/84; PULSE 106; RESP 15; O2SAT 97
[2017-02-03] MEDS ORDERED: SODIUM CHLORIDE 0.9% FLUSH 10 ML FLUSH IVF PRN (17:45)
[2017-02-03] MEDS ORDERED: MORPHINE SULFATE 4 MG/ML INJ IV PUSH ONE (17:45)
[2017-02-03] MEDS ORDERED: SODIUM CHLOR 0.9% 1000 ML INJ 1,000 ML IV ONE ×3 (17:45→20:45)
[2017-02-03 18:07] VITALS: BP_SYST 150; BP_SYST 153; BP_SYST 158; BP_DIAS 82; BP_DIAS 84; BP_DIAS 90; PULSE 106; PULSE 107; RESP 15; O2SAT 98
[2017-02-03 18:18] LABS: HEMATOCRIT 46.5 % (39.0-51.0); MEAN CELL VOLUME 96.1 FL (80.0-100.0); MEAN CORPUSCULAR HEMOGLOBIN 31.9 PG (27.0-34.0); MEAN CORPUSCULAR HGB CONC 33.2 % (32.0-36.0); PLATELET COUNT 86 TH/MM3 (150-450); RED BLOOD COUNT 4.84 MIL/MM3 (4.50-5.90); RED CELL DISTRIBUTION WIDTH 14.6 % (11.6-17.2); WHITE BLOOD COUNT 18.6 TH/MM3 (4.0-11.0)
[2017-02-03 18:25] LABS: HEMO FLAGS AUTO DIFF
[2017-02-03] MEDS ORDERED: MORPHINE SULFATE 2 MG/ML INJ IV PUSH ONE (18:30)
[2017-02-03 18:34] LABS: APTT (PATIENT) 28.2 SEC (24.3-30.1); INTERNATIONAL NORMALIZED RATIO 1.2 RATIO; PROTHROMBIN TIME - PATIENT 11.9 SEC (9.8-11.6)
[2017-02-03 18:45] LABS: ALKALINE PHOSPHATASE 104 U/L (45-117); ALT (GPT) 34 U/L (12-78); ANION GAP 12 MEQ/L (5-15); AST (GOT) 21 U/L (15-37); BICARBONATE 19.6 MEQ/L (21.0-32.0); BLOOD UREA NITROGEN 13 MG/DL (7-18); CHLORIDE 103 MEQ/L (98-107); CREATINE KINASE 102 U/L (39-308); GLOMERULAR FILTRATION RATE 54 ML/MIN (>89); POTASSIUM 4.4 MEQ/L (3.5-5.1); SODIUM (NA) 135 MEQ/L (136-145); TOTAL BILIRUBIN ADULT 0.3 MG/DL (0.2-1.0)
--- NOTE | 2017-02-03 18:47 | RADRPT ---
EXAM DATE/TIME: 02/03/2017 18:28 [facility] COMPARISON: CHEST SINGLE AP, September 27, 2016, 11:16. INDICATIONS : Chest pain starting today MEDICAL HISTORY : Renal failure, chronic. Hypertension SURGICAL HISTORY : Nephrectomy, left. Umbilical hernia repair. Tonsillectomy ENCOUNTER: Initial ACUITY: 1 day PAIN SCORE: 6/10 LOCATION: Bilateral chest FINDINGS: A single view of the chest demonstrates the lungs to be symmetrically aerated without evidence of mas s, infiltrate or effusion. The cardiomediastinal contours are unremarkable. Stable eventration of t he right hemidiaphragm. Osseous structures are intact. CONCLUSION: The lungs are clear. Christiano Jama MD on February 03, 2017 at 18:44 Board Certified Radiologist. This report was verified electronically.
[2017-02-03 19:09] LABS: NEUTROPHIL # MANUAL DIFF 7.6 TH/MM3 (1.8-7.7); PLATELET ESTIMATE SMEAR LOW (NORMAL); POLYS (SEG NEUTROPHILS) 40 % (16-70); PROMYELOCYTES 1 % (0-0); WBC DIFF SAMPLE 100
[2017-02-03 19:10] LABS: PLATELET MORPHOLOGY NORMAL (NORMAL); SCAN/DIFF FINAL DIFF MANUAL
--- NOTE | 2017-02-03 19:10 | PD ---
HPI Chief Complaint: Chest Pain Time Seen by Provider: 17:39 Travel History International Travel<30 days: No Contact w/Intl Traveler<30days: No Traveled to known affect area: No History of Present Illness HPI Patient is a 56-year-old male, well-known to this ED, brought in by EMS complaining of pain from his lower chest to his back. He is often here with the symptoms. He said he went to a [employer] and had a few drinks. He says he then started to feel nauseous and had an episode of diarrhea. He also says that he was standing on a bridge and the knee about killing himself. He denies doing anything to harm himself. He says he is taking his antidepressants as directed, but they're not helping. PFSH Past Medical History Autoimmune Disease: No Anxiety: Yes Depression: Yes Heart Rhythm Problems: Yes (parkinson-white syndrome) Cancer: No Cardiovascular Problems: Yes High Cholesterol: Yes Diabetes: Yes (*POSSIBLE PER PT-NO MEDS) Patient Takes Glucophage: No Diminished Hearing: No Endocrine: Yes Gastrointestinal Disorders: Yes Genitourinary: Yes (Left sided hydronephrosis) Hiatal Hernia: Yes Hypertension: Yes Immune Disorder: No Implanted Vascular Access Dvce: No Musculoskeletal: No Neurologic: No Psychiatric: Yes Reproductive: No Respiratory: No Renal Failure: Yes Past Surgical History Abdominal Surgery: Yes Genitourinary Surgery: Yes (urostomy, L nephrectomy) Gynecologic Surgery: No Oral Surgery: Yes (tonsillectomy) Tonsillectomy: Yes Other Surgery: Yes (NEPHROSTOMY) Social History Alcohol Use: Yes (TODAY) Tobacco Use: Yes Substance Use: No Allergies-Medications (Allergen,Severity, Reaction): Coded Allergies: No Known Allergies (Verified Allergy, Unknown, 02/03/17) Reported Meds & Prescriptions Reported Meds & Active Scripts Active No Active Prescriptions or Reported Medications Review of Systems Except as stated in HPI: all other systems reviewed are Neg General / Constitutional: No: Fever, Chills Eyes: No: Blurred Vision HENT: No: Headaches, Lightheadedness Cardiovascular: Positive: Chest Pain or Discomfort, Palpitations Respiratory: No: Shortness of Breath Gastrointestinal: Positive: Nausea, Diarrhea Musculoskeletal: No: Myalgias, Edema Skin: No Rash, No Change in Pigmentation Neurologic: No: Weakness, Dizziness, Syncope Physical Exam Narrative GENERAL: Awake and alert, in no acute distress. SKIN: Focused skin assessment warm/dry. HEAD: Atraumatic. Normocephalic. EYES: Pupils equal and round. No scleral icterus. ENT: Mucous membranes pink and moist. NECK: Trachea midline. No JVD. CARDIOVASCULAR: Tachycardia. No murmur appreciated. RESPIRATORY: No accessory muscle use. Clear to auscultation. Breath sounds equal bilaterally. GASTROINTESTINAL: Abdomen soft, non-tender, nondistended. MUSCULOSKELETAL: No obvious deformities. No clubbing. No cyanosis. No edema. NEUROLOGICAL: Awake and alert. No obvious cranial nerve deficits. Motor grossly within normal limits. Normal speech. PSYCHIATRIC: Appropriate mood and affect; insight and judgment normal. Data Data Last Documented VS Vital Signs Date Time Temp Pulse Resp B/P (MAP) Pulse Ox O2 Delivery O2 Flow Rate FiO2 02/03/17 18:07 107 15 153/84 (107) 98 Room Air Orders Orders Ckmb (Isoenzyme) Profile (02/03/17 17:40) Complete Blood Count With Diff (02/03/17 17:40) Comprehensive Metabolic Panel (02/03/17 17:40) Prothrombin Time / Inr (Pt) (02/03/17 17:40) Act Partial Throm Time (Ptt) (02/03/17 17:40) Troponin I (02/03/17 17:40) Lipase (02/03/17 17:40) Chest, Single Ap (02/03/17 17:40) Ecg Monitoring (02/03/17 17:40) Bilateral Bp Monitoring (02/03/17 17:40) Iv Access Insert/Monitor (02/03/17 17:40) Oximetry (02/03/17 17:40) Oxygen Administration (02/03/17 17:40) Sodium Chloride 0.9% Flush (Ns Flush) (02/03/17 17:45) Sodium Chlor 0.9% 1000 Ml Inj (Ns 1000 M (02/03/17 17:45) Alcohol (Ethanol) (02/03/17 18:00) Psych Screen (02/03/17 18:07) Morphine Inj (Morphine Inj) (02/03/17 18:30) Drug Screen, Random Urine (02/03/17 18:26) Electrocardiogram (02/03/17 17:34) CKMB (02/03/17 18:00) CKMB% (02/03/17 18:00) Labs Laboratory Tests Test 02/03/17 18:00 White Blood Count 18.6 TH/MM3 Red Blood Count 4.84 MIL/MM3 Hemoglobin 15.4 GM/DL Hematocrit 46.5 % Mean Corpuscular Volume 96.1 FL Mean Corpuscular Hemoglobin 31.9 PG Mean Corpuscular Hemoglobin Concent 33.2 % Red Cell Distribution Width 14.6 % Platelet Count 86 TH/MM3 Mean Platelet Volume 8.7 FL CBC Comment AUTO DIFF Prothrombin Time 11.9 SEC Prothromb Time International Ratio 1.2 RATIO Activated Partial Thromboplast Time 28.2 SEC Blood Urea Nitrogen 13 MG/DL Creatinine 1.35 MG/DL Random Glucose 438 MG/DL Total Protein 7.0 GM/DL Albumin 3.4 GM/DL Calcium Level 8.3 MG/DL Alkaline Phosphatase 104 U/L Aspartate Amino Transf (AST/SGOT) 21 U/L Alanine Aminotransferase (ALT/SGPT) 34 U/L Total Bilirubin 0.3 MG/DL Sodium Level 135 MEQ/L Potassium Level 4.4 MEQ/L Chloride Level 103 MEQ/L Carbon Dioxide Level 19.6 MEQ/L Anion Gap 12 MEQ/L Estimat Glomerular Filtration Rate 54 ML/MIN Total Creatine Kinase 102 U/L Troponin I LESS THAN 0.02 NG/ML Lipase 145 U/L Ethyl Alcohol Level 65 MG/DL MDM Medical Decision Making Medical Screen Exam Complete: Yes Emergency Medical Condition: Yes Medical Record Reviewed: Yes Interpretation(s) ECG shows sinus tachycardia at 112, no ST elevation or depression. Differential Diagnosis ACS versus intoxication versus dehydration versus depression Narrative Course Patient is a 56-year-old male who comes in complaining of chest pain and suicidal ideations. Patient is tachycardic on exam. IV established, labs sent. Patient given IV fluids. Sugar was over 400. Given a small dose of insulin. Troponin is negative. Patient would do well with the med psych bed. Psychiatry called for screening. Scripts No Active Prescriptions or Reported Meds Dejah Ayoub MD Feb 03, 2017 19:10
[2017-02-03] MEDS ORDERED: INSULIN HUMAN REGULAR 1,000 UNITS/10 ML VIAL SQ ONE (19:15)
[2017-02-03 19:17] LABS: CKMB 2.2 NG/ML (0.5-3.6)
[2017-02-03 21:41] VITALS: BP 133/70; PULSE 100; RESP 20; O2SAT 96
[2017-02-03 23:22] VITALS: BP 143/80; PULSE 100; RESP 17; TEMP 98.6; O2SAT 99
[2017-02-04 02:00] VITALS: BP 123/64; PULSE 94; RESP 20; TEMP 96.9; O2SAT 96
[2017-02-04 06:34] VITALS: BP 121/64; PULSE 96; RESP 17; TEMP 98; O2SAT 98
[2017-02-04 07:28] VITALS: BP 115/63; PULSE 91; RESP 16; TEMP 98.3; O2SAT 95
--- NOTE | 2017-02-04 12:37 | HHI.HP ---
Provisional Diagnosis Admission Date [place] I. 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 Express and informed consent means consent voluntarily given in writing, by a competent person, after sufficient explanation and disclosure of the subject matter involved to enable the person to make a knowing and willful decision without any element of force, fraud, deceit, duress, or other form of constraint or coercion. This person is 18 years of age or older, is not now known to be incompetent to consent to treatment with a guardian advocate, and does not have a health care surrogate or proxy currently making medical treatment decisions. I have found this person to be one of the following: [] Competent to provide express and informed consent, as defined above, for voluntary admission to this facility and is competent to provide express and informed consent for treatment. He/she has the consistent capacity to make well reasoned, willful, and knowing decisions concerning his or her medical or mental health treatment. The person fully and consistently understands the purpose of the admission for examination/placement and is fully capable of personally exercising all rights assured [place] [] Incompetent to provide express and informed consent to voluntary admission, and this is incompetent to provide express and informed consent to treatment. The person must be transferred to involuntary status and a petition for a guardian advocate filed with the Circuit Court. [xxx] Refusing to provide express and informed consent to voluntary admission but is competent to provide express and informed consent for treatment. The person must be discharged or transferred to involuntary status. Form shall be completed within 24 hours of a person's arrival at the receiving facility and filed in the clinical record of each person: 1. Admitted on a voluntary basis 2. Permitted to provide express and informed consent to his/her own treatment 3. Allowed to transfer from involuntary to voluntary status 4. Prior to permitting a person to consent to his or her own treatment after having been previously found incompetent to consent to treatment. History of Present Illness Capacity: Lacks Capacity (patient less capacity psych for admission patient has capacity to sign for medications) Psych Chief Complaint: depressed with suicidal ideation and intent HPI Patient is a 56-year-old white male comes here under [place] act signed by Dejah [employer] and [employer] dated February 03 at 6 PM that document reviewed stating patient states he was having "did thoughts" of wanting to kill himself. It appears patient was having increased depression in the community related to loss of his job losses girlfriend and questionable housing situation. Is also any Worship constitution party prior to losing his job it appears she had a blood alcohol level of 67 in the ED. Of interest also patient has had prior hospitalizations here for similar episodes. At the present time patient is lying quietly in his bed on J pod nurse Adrienne present throughout session. Patient acknowledges increased depression with decreased sleep decreased concentration and attention increase hopelessness. Though he denies voices or visions with this. There is increased suicidal ideation intent to the plan to jump off the [place] bridge. Patient feels the medication is not working. It appears his last hospitalization here from months ago is discharged on Abilify and Cymbalta. He states he is a goes to the ID clinic. Is question about his compliance with his medication. Patient denies any significant physical or sexual abuse. Denies any mental illness in the family of origin. At this time patient does meet criteria for involuntary psychiatric hospitalization on the [place] act I'll do first opinion request second opinion, though I feel he does have capacity to sign for his medications. At this time we'll restart him on his Abilify and his Cymbalta. Some of these increased depressive symptoms appear to be more environmental situational and context. Is also noted he is diabetic and his diabetes was somewhat volatile. We will have hospitalist consult with us also Review of Systems Constitutional: DENIES: Diaphoretic episodes, Fatigue, Fever, Weight gain, Weight loss, Chills, Dizziness, Change in appetite, Night Sweats Endocrine: DENIES: Heat/cold intolerance, Polydipsia, Polyuria, Polyphagia Eyes: DENIES: Blurred vision, Diplopia, Eye inflammation, Eye pain, Vision loss , Photosensitivity, Double Vision Ears, nose, mouth, throat: DENIES: Tinnitus, Hearing loss, Vertigo, Nasal discharge, Oral lesions, Throat pain, Hoarseness, Ear Pain, Running Nose, Epistaxis, Sinus Pain, Toothache, Odynophagia Respiratory: DENIES: Apneas, Cough, Snoring, Wheezing, Hemoptysis, Sputum production, Shortness of breath Cardiovascular: DENIES: Chest pain, Palpitations, Syncope, Dyspnea on Exertion , PND, Lower Extremity Edema, Orthopnea, Claudication Gastrointestinal: DENIES: Abdominal pain, Black stools, Bloody stools, Constipation, Diarrhea, Nausea, Vomiting, Difficulty Swallowing, Anorexia Genitourinary: DENIES: Sexual dysfunction, Urinary frequency, Urinary incontinence, Urgency, Hematuria, Dysuria, Nocturia, Penile Discharge, Testicular Pain, Testicular Swelling Musculoskeletal: DENIES: Joint pain, Muscle aches, Stiffness, Joint Swelling, Back pain, Neck pain Integumentary: DENIES: Abnormal pigmentation, Nail changes, Pruritus, Rash Immunologic/allergic: DENIES: Eczema, Urticaria Neurologic: DENIES: Abnormal gait, Headache, Localized weakness, Paresthesias, Seizures, Speech Problems, Tremor, Poor Balance Psychiatric: COMPLAINS OF: Anxiety, Depression, Suicidal Ideation Past Psych History Psychological trauma history Patient denies Violence risk - others (6 mos) Low Violence risk - self (6 mos) High Substance Abuse History Drugs/Alcohol past 12 months Patient stated a few drinks the of admission Past Family Social History Coded Allergies: No Known Allergies (Verified Allergy, Unknown, 02/03/17) Discontinued Scripts Diclofenac Sodium DR (Diclofenac Sodium DR) 75 Mg Tabdr, 75 MG PO BID Y for PAIN SCALE 1 TO 10, #20 TAB 0 Refills Prov:Patrick Ramirez MD 01/20/17 Hydrocodone-Acetaminophen (Hydrocodone-Acetaminophen) 5-325 mg Tab, 1 TAB PO Q6H Y for PAIN, #14 TAB 0 Refills Prov:Patrick Ramirez MD 01/20/17 Current Medications Medications (Trade) Dose Ordered Sig/Clemente Route Start Time Stop Time Status Last Admin (NS Flush) 2 ml UNSCH PRN IVF 02/03/17 17:45 Family Psych History Patient denies Social History Patient broke up with his girlfriend question about the is living situation Patient's Strengths (min. 2) Patient verbal able access health care Physical Exam Patient seen screened in ED exam reviewed and agreed with the present time patient sitting quietly in his room. He is in no acute distress, is in no respiratory distress. No complaints of abdominal pain. Patient with all 4 extremities without difficulty. No abnormal motor movements noted Vital Signs Vital Signs Date Time Temp Pulse Resp B/P (MAP) Pulse Ox O2 Delivery O2 Flow Rate FiO2 02/04/17 07:28 98.3 91 16 115/63 (80) 95 02/04/17 06:34 Room Air Lab Results Test 02/03/17 18:00 02/03/17 19:12 White Blood Count 18.6 TH/MM3 Red Blood Count 4.84 MIL/MM3 Hemoglobin 15.4 GM/DL Hematocrit 46.5 % Mean Corpuscular Volume 96.1 FL Mean Corpuscular Hemoglobin 31.9 PG Mean Corpuscular Hemoglobin Concent 33.2 % Red Cell Distribution Width 14.6 % Platelet Count 86 TH/MM3 Mean Platelet Volume 8.7 FL CBC Comment AUTO DIFF Differential Total Cells Counted 100 Neutrophils % (Manual) 40 % Lymphocytes % 57 % Monocytes % 2 % Neutrophils # (Manual) 7.6 TH/MM3 Promyelocytes 1 % Differential Comment FINAL DIFF MANUAL Platelet Estimate LOW Platelet Morphology Comment NORMAL Prothrombin Time 11.9 SEC Prothromb Time International Ratio 1.2 RATIO Activated Partial Thromboplast Time 28.2 SEC Blood Urea Nitrogen 13 MG/DL Creatinine 1.35 MG/DL Random Glucose 438 MG/DL Total Protein 7.0 GM/DL Albumin 3.4 GM/DL Calcium Level 8.3 MG/DL Alkaline Phosphatase 104 U/L Aspartate Amino Transf (AST/SGOT) 21 U/L Alanine Aminotransferase (ALT/SGPT) 34 U/L Total Bilirubin 0.3 MG/DL Sodium Level 135 MEQ/L Potassium Level 4.4 MEQ/L Chloride Level 103 MEQ/L Carbon Dioxide Level 19.6 MEQ/L Anion Gap 12 MEQ/L Estimat Glomerular Filtration Rate 54 ML/MIN Total Creatine Kinase 102 U/L Creatine Kinase MB 2.2 NG/ML Troponin I LESS THAN 0.02 NG/ML Lipase 145 U/L Ethyl Alcohol Level 65 MG/DL Urine Opiates Screen NEG Urine Barbiturates Screen NEG Urine Amphetamines Screen NEG Urine Benzodiazepines Screen NEG Urine Cocaine Screen NEG Urine Cannabinoids Screen NEG Mental Status Examination Appearance: Appropriate, Disheveled Consciousness: Alert Orientation: x4 Motor Activity: Normal gait (mildly) Speech: Unremarkable Language: Adequate Fund of Knowledge: Adequate Attention and Concentration: Other (fair) Memory: Unremarkable Mood: Sad Affect: Other (decreased range and intensity) Thought Process & Associations: Intact Thought Content: Appropriate Hallucination Type: None Delusion Type: None Suicidal Ideation: Yes (states would probably take the suicide pill) Suicidal Plan: Yes (states would probably take the suicide pill) Suicidal Intention: Yes (states would probably take the suicide pill) Homicidal Ideation: No Homicidal Plan: No Homicidal Intention: No Insight: Poor Judgment: Poor Assessment & Plan Problem List: (1) Major depression ICD Codes: F32.9 - Major depressive disorder, single episode, unspecified Status: Acute Assessment & Plan Estimated LOS: days patient remains depressed and suicidal, this to me does meet criteria for involuntary psychiatric hospitalization thus I'll do first opinion petition supporting [place] act. I will request a second opinion. I feel he does have capacity significant medications. We'll restart him on his Abilify and Cymbalta Discharge Planning Patient does have him to return to at least for the next month Request HC Surrog/Guard Advoc?: No Problem Qualifiers (1) Major depression: Qualified Codes: F33.2 - Major depressive disorder, recurrent severe without psychotic features Arcenio Peters MD Feb 04, 2017 12:37
[2017-02-04] MEDS ORDERED: diphenhydrAMINE HCL 50 MG CAP PO PRN (13:15)
[2017-02-04] MEDS ORDERED: MAGNESIUM HYDROXIDE SUSP 30 ML CUP PO PRN (13:15)
[2017-02-04] MEDS ORDERED: ACETAMINOPHEN 325 MG TAB PO PRN (13:15)
[2017-02-04] MEDS ORDERED: ALUMINUM/MAGNESIUM/SIMETH 30 ML CUP PO PRN (13:15)
[2017-02-04] MEDS ORDERED: hydrOXYzine HCL 50 MG TAB PO PRN (13:15)
[2017-02-04 14:00] VITALS: BP 127/60; PULSE 104; RESP 18; O2SAT 96
[2017-02-04] MEDS: ARIPiprazole 10 MG TAB PO SCH (14:31)
[2017-02-04] MEDS ORDERED: LORazepam 2 MG TAB PO PRN (16:00)
[2017-02-04] MEDS ORDERED: LORazepam 1 MG TAB PO PRN (16:00)
[2017-02-04] MEDS ORDERED: LORazepam 2 MG/ML VIAL IV PUSH PRN ×2 (16:00)
[2017-02-04] MEDS ORDERED: FLUMAZENIL 0.5 MG/5 ML VIAL IV PUSH PRN (16:00)
--- NOTE | 2017-02-04 16:14 | PD.CONS ---
[facility] By Dr. Peters Reason for Consult Medical management Primary Care Physician [facility] Diagnoses: History of Present Illness The patient is a 56-year-old male with a past medical history of diabetes and depression who is presenting to the hospital with suicidal ideation. The patient said that yesterday he had an anxiety attack and was considering jumping off of a bridge. He said that he had chest pain at the time associated with shortness of breath. He believes the chest pain was related to his anxiety. He no longer has chest pain or shortness of breath. He says he has not been eating or sleeping well recently. The patient states that he has had multiple suicide attempts in the past. He says that he is currently living with a girlfriend. He requested pain medication for his chronic kidney pain. He also requests a nicotine patch. Discussed with nursing. 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 Hiatal hernia CLL Past Surgical History Tonsillectomy Umbilical hernia repair Urostomy Left nephrostomy Active Ordered Medications Current Medications Medications (Trade) Dose Ordered Sig/Clemente Route Start Time Stop Time Status Last Admin (NS Flush) 2 ml UNSCH PRN IVF 02/03/17 17:45 (Abilify) 10 mg DAILY PO 02/04/17 12:45 02/04/17 14:31 (Cymbalta Dr) 30 mg DAILY@1999 PO 02/04/17 20:00 (Benadryl) 50 mg HS PRN PO 02/04/17 13:15 (Tylenol) 650 mg Q4H PRN PO 02/04/17 13:15 (Milk Of Magnesia Liq) 30 ml DAILY PRN PO 02/04/17 13:15 (Mag-Al Plus Susp Liq) 30 ml Q6H PRN PO 02/04/17 13:15 (Atarax) 50 mg Q6H PRN PO 02/04/17 13:15 (NovoLOG SUPPLEMENTAL SCALE) 1 ACHS SLIDING SCALE SQ 02/04/17 17:00 Family History The patient denies pertinent family history Social History The patient smokes 2-3 cigars daily. He denies alcohol use. He says he gets narcotic pills from somebody and takes it for his chronic pain. Physical Exam Vital Signs Vital Signs Date Time Temp Pulse Resp B/P (MAP) Pulse Ox O2 Delivery O2 Flow Rate FiO2 02/04/17 15:30 02/04/17 14:00 104 18 127/60 (82) 96 02/04/17 07:28 98.3 91 16 115/63 (80) 95 02/04/17 06:34 98.0 96 17 121/64 (83) 98 Room Air 02/04/17 02:00 96.9 94 20 123/64 (83) 96 Room Air 02/03/17 23:22 98.6 100 17 143/80 (101) 99 Room Air 02/03/17 22:48 98 Room Air 02/03/17 21:41 100 20 133/70 (91) 96 Room Air 02/03/17 18:07 107 15 153/84 (107) 98 Room Air 02/03/17 18:07 106 15 97 Room Air 02/03/17 18:07 97 Room Air 02/03/17 18:07 106 150/82 (104) 158/90 (112) 02/03/17 17:43 106 15 153/84 (107) 97 Physical Exam GENERAL: This is a well-nourished, well-developed patient, in no apparent distress. SKIN: Warm and dry. HEENT: Atraumatic. Normocephalic. EOMI. MMM. CARDIOVASCULAR: Regular rate and rhythm without murmurs, gallops, or rubs. RESPIRATORY: Clear to auscultation. Breath sounds equal bilaterally. No wheezes , rales, or rhonchi. GASTROINTESTINAL: Abdomen soft, nondistended. Abdomen tenderness to light palpation with over left quadrant. MUSCULOSKELETAL: Extremities without clubbing, cyanosis, or edema. Left CVA tenderness appreciated. NEUROLOGICAL: Awake and alert. Motor and sensory grossly within normal limits. Normal speech. PSYCH: Flattened affect. Laboratory Laboratory Tests Test 02/03/17 18:00 02/03/17 19:12 White Blood Count 18.6 Red Blood Count 4.84 Hemoglobin 15.4 Hematocrit 46.5 Mean Corpuscular Volume 96.1 Mean Corpuscular Hemoglobin 31.9 Mean Corpuscular Hemoglobin Concent 33.2 Red Cell Distribution Width 14.6 Platelet Count 86 Mean Platelet Volume 8.7 CBC Comment AUTO DIFF Differential Total Cells Counted 100 Neutrophils % (Manual) 40 Lymphocytes % 57 Monocytes % 2 Neutrophils # (Manual) 7.6 Promyelocytes 1 Differential Comment FINAL DIFF MANUAL Platelet Estimate LOW Platelet Morphology Comment NORMAL Prothrombin Time 11.9 Prothromb Time International Ratio 1.2 Activated Partial Thromboplast Time 28.2 Blood Urea Nitrogen 13 Creatinine 1.35 Random Glucose 438 Total Protein 7.0 Albumin 3.4 Calcium Level 8.3 Alkaline Phosphatase 104 Aspartate Amino Transf (AST/SGOT) 21 Alanine Aminotransferase (ALT/SGPT) 34 Total Bilirubin 0.3 Sodium Level 135 Potassium Level 4.4 Chloride Level 103 Carbon Dioxide Level 19.6 Anion Gap 12 Estimat Glomerular Filtration Rate 54 Total Creatine Kinase 102 Creatine Kinase MB 2.2 Troponin I LESS THAN 0.02 Lipase 145 Ethyl Alcohol Level 65 Urine Opiates Screen NEG Urine Barbiturates Screen NEG Urine Amphetamines Screen NEG Urine Benzodiazepines Screen NEG Urine Cocaine Screen NEG Urine Cannabinoids Screen NEG Result Diagram: 02/03/17 1800 02/03/17 1800 Imaging Last Impressions Chest X-Ray 02/03/17 1740 Signed Impressions: Service Date/Time: Friday, February 03, 2017 18:28 - CONCLUSION: The lungs are clear. Christiano Jama MD Assessment and Plan Assessment and Plan Anxiety, depression, suicidal ideation - Managed by psychiatry team. Chest pain/ Shortness of breath Likely secondary to panic attack. Chest x-ray unremarkable. Resolved. - Check an EKG and trend troponins. EtOH abuse Alcohol level was elevated. - continue CIWA protocol. - seizure precautions. Tobacco abuse 30+ year smoking history. - Nicotine patch after CP rule out. - Counseled on smoking cessation. CLL, leukocytosis Has not started treatment yet. - Follow up as an outpatient. DM 2 Glucose elevated over 400 on admission. - check A1c. - Monitor Accu-Cheks. - insulin sliding scale. Chronic back pain Ongoing since left nephrectomy. He takes narcotics on a daily basis which have not been prescribed to him. - PT. - Tylenol as needed. Acute renal insufficiency Likely secondary to dehydration. He is status post left nephrectomy. - Encourage by mouth hydration. - Follow BMP and avoid nephrotoxic agents. Thrombocytopenia Chronic. Possibly secondary to alcohol abuse. - Follow CBC as needed. PPx: Patient is ambulatory Discussed Condition With Pt, nurse Harshal Akers DO Feb 04, 2017 16:14
[2017-02-04] MEDS: INSULIN ASPART SUPPLEMENTAL SCALE SQ SCH ×2 (17:00→20:51)
[2017-02-04 17:55] VITALS: BP 161/74; PULSE 96; RESP 17; TEMP 98.3; O2SAT 96
[2017-02-04] MEDS: DULoxetine HCl DR 30 MG CAP PO SCH (20:37)
[2017-02-05 06:22] VITALS: BP 136/75; PULSE 82; RESP 16; TEMP 98.2; O2SAT 97
[2017-02-05 07:32] LABS: AUTOMATED NEUTROPHIL # 3.6 TH/MM3 (1.8-7.7); BASOPHIL % 0.2 % (0.0-2.0); EOSINOPHIL # 0.1 TH/MM3 (0-0.4); EOSINOPHIL % 1.4 % (0.0-4.0); HEMATOCRIT 42.1 % (39.0-51.0); LYMPHOCYTE # 5.6 TH/MM3 (1.0-4.8); MEAN CELL VOLUME 93.9 FL (80.0-100.0); MEAN CORPUSCULAR HEMOGLOBIN 32.4 PG (27.0-34.0); MEAN CORPUSCULAR HGB CONC 34.5 % (32.0-36.0); MONO % 2.7 % (0.0-8.0); NEUT % 37.7 % (16.0-70.0); PLATELET COUNT 66 TH/MM3 (150-450); RED BLOOD COUNT 4.48 MIL/MM3 (4.50-5.90); RED CELL DISTRIBUTION WIDTH 14.6 % (11.6-17.2); WHITE BLOOD COUNT 9.6 TH/MM3 (4.0-11.0)
[2017-02-05 07:38] LABS: HEMO FLAGS AUTO DIFF
[2017-02-05] MEDS: INSULIN ASPART SUPPLEMENTAL SCALE SQ SCH ×4 (07:47→20:56)
[2017-02-05 07:58] LABS: ALT (GPT) 32 U/L (12-78); ANION GAP 6 MEQ/L (5-15); AST (GOT) 12 U/L (15-37); BICARBONATE 25.3 MEQ/L (21.0-32.0); BLOOD UREA NITROGEN 11 MG/DL (7-18); CHLORIDE 110 MEQ/L (98-107); GLOMERULAR FILTRATION RATE 95 ML/MIN (>89); POTASSIUM 3.9 MEQ/L (3.5-5.1); SODIUM (NA) 141 MEQ/L (136-145)
[2017-02-05 08:08] LABS: ALKALINE PHOSPHATASE 84 U/L (45-117); TOTAL BILIRUBIN ADULT 0.5 MG/DL (0.2-1.0)
[2017-02-05] MEDS: ARIPiprazole 10 MG TAB PO SCH (08:16)
[2017-02-05 09:53] LABS: EOSINOPHILS 1 % (0-4); MYELOCYTES 1 % (0-0); NEUTROPHIL # MANUAL DIFF 3.6 TH/MM3 (1.8-7.7); POLYS (SEG NEUTROPHILS) 36 % (16-70); WBC DIFF SAMPLE 100
[2017-02-05 09:55] LABS: SMUDGE CELLS PRESENT PRESENT
[2017-02-05 09:56] LABS: PLATELET ESTIMATE SMEAR LOW (NORMAL); PLATELET MORPHOLOGY NORMAL (NORMAL); SCAN/DIFF FINAL DIFF MANUAL
[2017-02-05] MEDS: NICOTINE 21 MG/24 HR PATCH T-DERMAL SCH (10:00)
--- NOTE | 2017-02-05 10:24 | HHI.PYPN ---
Subjective Chief Complaint: depressed with suicidal ideation and intent Remarks Is a request for second opinion. Admission note was reviewed and I agree with its contents. Patient was seen and case was discussed with nursing. Patient was admitted secondary to multiple stressors and resulting suicidal ideation. Patient is pleasant and cooperative with exam. He is somewhat guarded and shameful concerning his suicidal ideation. Plan included jumping off a bridge. Today on this unit, he has fleeting passive suicidal thoughts with no intent or plan. Tolerating his medications well. Continues to be followed by the medical team for thrombocytopenia Mental Status Examination Appearance: Appropriate, Disheveled Consciousness: Alert Orientation: x4 Motor Activity: Normal gait (mildly) Speech: Unremarkable Language: Adequate Fund of Knowledge: Adequate Attention and Concentration: Other (fair) Memory: Unremarkable Mood: Sad Affect: Blunt Thought Process & Associations: Intact Thought Content: Appropriate Hallucination Type: None Delusion Type: None Suicidal Ideation: Yes (states would probably take the suicide pill) Suicidal Plan: No Suicidal Intention: No Homicidal Ideation: No Homicidal Plan: No Homicidal Intention: No Insight: Poor Judgment: Poor Results Labs Test 02/04/17 17:30 02/05/17 00:52 02/05/17 06:24 Troponin I LESS THAN 0.02 NG/ML LESS THAN 0.02 NG/ML LESS THAN 0.02 NG/ML White Blood Count 9.6 TH/MM3 Red Blood Count 4.48 MIL/MM3 Hemoglobin 14.5 GM/DL Hematocrit 42.1 % Mean Corpuscular Volume 93.9 FL Mean Corpuscular Hemoglobin 32.4 PG Mean Corpuscular Hemoglobin Concent 34.5 % Red Cell Distribution Width 14.6 % Platelet Count 66 TH/MM3 Mean Platelet Volume 8.7 FL Neutrophils (%) (Auto) 37.7 % Lymphocytes (%) (Auto) 58.0 % Monocytes (%) (Auto) 2.7 % Eosinophils (%) (Auto) 1.4 % Basophils (%) (Auto) 0.2 % Neutrophils # (Auto) 3.6 TH/MM3 Lymphocytes # (Auto) 5.6 TH/MM3 Monocytes # (Auto) 0.3 TH/MM3 Eosinophils # (Auto) 0.1 TH/MM3 Basophils # (Auto) 0.0 TH/MM3 CBC Comment AUTO DIFF Differential Total Cells Counted 100 Neutrophils % (Manual) 36 % Lymphocytes % 60 % Monocytes % 2 % Eosinophils % 1 % Neutrophils # (Manual) 3.6 TH/MM3 Myelocytes 1 % Differential Comment FINAL DIFF MANUAL Smudge Cells PRESENT Platelet Estimate LOW Platelet Morphology Comment NORMAL Red Cell Morphology Comment NORMAL Blood Urea Nitrogen 11 MG/DL Creatinine 0.83 MG/DL Random Glucose 196 MG/DL Total Protein 6.3 GM/DL Albumin 3.0 GM/DL Calcium Level 8.2 MG/DL Alkaline Phosphatase 84 U/L Aspartate Amino Transf (AST/SGOT) 12 U/L Alanine Aminotransferase (ALT/SGPT) 32 U/L Total Bilirubin 0.5 MG/DL Sodium Level 141 MEQ/L Potassium Level 3.9 MEQ/L Chloride Level 110 MEQ/L Carbon Dioxide Level 25.3 MEQ/L Anion Gap 6 MEQ/L Estimat Glomerular Filtration Rate 95 ML/MIN Thyroid Stimulating Hormone 3rd Gen 0.537 uIU/ML Vitals/IOs Vital Signs Date Time Temp Pulse Resp B/P (MAP) Pulse Ox O2 Delivery O2 Flow Rate FiO2 02/05/17 06:22 98.2 82 16 136/75 (95) 97 02/04/17 06:34 Room Air Assessment & Plan Problem List: (1) Major depression ICD Codes: F32.9 - Major depressive disorder, single episode, unspecified Status: Acute Assessment & Plan I agree with the first opinion to continue petition. Criteria include suicidal ideation Justification for Cont. Inpt. Patient would decompensate in a less restrictive setting Request HC Surrog/Guard Advoc?: No Problem Qualifiers (1) Major depression: Qualified Codes: F33.2 - Major depressive disorder, recurrent severe without psychotic features Silvestre Vizcarra DO Feb 05, 2017 10:24
--- NOTE | 2017-02-05 10:42 | HHI.PR ---
Subjective Remarks Follow up suicidal ideation and chest pain. Patient seen and examined, lying in bed comfortably. Awake and alert. Denies any chest pain. Denies any acute events overnight. States he is feeling much better. Eating well. Ambulating. Vitals stable. Objective Vitals Vital Signs Date Time Temp Pulse Resp B/P (MAP) Pulse Ox O2 Delivery O2 Flow Rate FiO2 02/05/17 06:22 98.2 82 16 136/75 (95) 97 02/04/17 17:55 98.3 96 17 161/74 (103) 96 02/04/17 15:30 02/04/17 14:00 104 18 127/60 (82) 96 I/O 02/04/17 02/04/17 02/04/17 02/05/17 02/05/17 02/05/17 07:00 15:00 23:00 07:00 15:00 23:00 Intake Total 240 ml Output Total 600 ml Balance -600 ml 240 ml Intake Oral 240 ml Output Urine Total 600 ml # Voids 1 Result Diagram: 02/05/1724 02/05/17623 Imaging Last Impressions Chest X-Ray 02/03/17 1740 Signed Impressions: Service Date/Time: Friday, February 03, 2017 18:28 - CONCLUSION: The lungs are clear. Christiano Jama MD Objective Remarks GENERAL: This is a well-nourished, well-developed patient, in no apparent distress. SKIN: Warm and dry. HEENT: Atraumatic. Normocephalic. EOMI. MMM. CARDIOVASCULAR: Regular rate and rhythm without murmurs, gallops, or rubs. RESPIRATORY: Clear to auscultation. Breath sounds equal bilaterally. No wheezes , rales, or rhonchi. GASTROINTESTINAL: Abdomen soft, nondistended. Left lower quadrant tenderness to palpation. MUSCULOSKELETAL: Extremities without clubbing, cyanosis, or edema. Left CVA tenderness appreciated. NEUROLOGICAL: Awake and alert. Motor and sensory grossly within normal limits. Normal speech. PSYCH: Flattened affect. A/P Assessment and Plan Anxiety, depression, suicidal ideation - Managed by psychiatry team. Chest pain/ Shortness of breath - Likely secondary to panic attack. Chest x-ray unremarkable. Resolved. - Serial troponins flat. EKG reviewed showing NSR with controlled heart rate. No change in ST segment to indicate any ischemia. - Follow clinically. EtOH abuse Alcohol level was elevated. - No evidence of withdrawals at this time. - continue CIWA protocol. - seizure precautions. Tobacco abuse 30+ year smoking history. - Nicotine patch since ACS has been ruled out. - Counseled on smoking cessation. CLL, leukocytosis - Has not started treatment yet. - Follow up as an outpatient. DM 2 Glucose elevated over 400 on admission. - check A1c, pending. - Monitor Accu-Cheks. - insulin sliding scale. Chronic back pain Ongoing since left nephrectomy. He takes narcotics on a daily basis which have not been prescribed to him. - PT. - Tylenol as needed. Acute renal insufficiency. Resolved. Likely secondary to dehydration. He is status post left nephrectomy. - Encourage by mouth hydration. - Follow BMP and avoid nephrotoxic agents. Thrombocytopenia Chronic. Possibly secondary to alcohol abuse vs chronic lymphoproliferative disorder - Follow as needed. PPx: Patient is ambulatory Patient is medically stable. Will sign off. Please call or reconsult with questions. Dejah Delgado Feb 05, 2017 10:42 Denise Michaud MD Feb 05, 2017 14:22
[2017-02-05 11:16] LABS: HEMOGLOBIN A1a 1.1 %; HEMOGLOBIN A1b 1.1 %; HEMOGLOBIN Ao 78.3 %; HEMOGLOBIN F 1.4 %; HEMOGLOBIN LA1C 2.8 %; HEMOGLOBIN P3 4.5 %
[2017-02-05] MEDS ORDERED: traMADol HCL 50 MG TAB PO PRN (17:00)
[2017-02-05 18:03] VITALS: BP 145/85; PULSE 100; RESP 20; TEMP 98.4; O2SAT 97
[2017-02-05] MEDS: DULoxetine HCl DR 30 MG CAP PO SCH (20:55)
[2017-02-05] MEDS ORDERED: REMOVE OLD NICODERM (NICOTINE) PATCH T-DERMAL SCH (21:00)
[2017-02-06 05:34] VITALS: BP 120/74; PULSE 84; RESP 18; TEMP 97.7; O2SAT 97
[2017-02-06] MEDS: INSULIN ASPART SUPPLEMENTAL SCALE SQ SCH ×2 (08:00→12:00)
[2017-02-06 08:42] LABS: BASOPHIL % 0.2 % (0.0-2.0); EOSINOPHIL # 0.1 TH/MM3 (0-0.4); EOSINOPHIL % 1.1 % (0.0-4.0); HEMATOCRIT 44.5 % (39.0-51.0); LYMPH % 57.3 % (9.0-44.0); LYMPHOCYTE # 5.9 TH/MM3 (1.0-4.8); MEAN CORPUSCULAR HEMOGLOBIN 32.4 PG (27.0-34.0); MEAN CORPUSCULAR HGB CONC 34.4 % (32.0-36.0); MONO % 2.6 % (0.0-8.0); NEUT % 38.8 % (16.0-70.0); PLATELET COUNT 74 TH/MM3 (150-450); RED BLOOD COUNT 4.73 MIL/MM3 (4.50-5.90); RED CELL DISTRIBUTION WIDTH 14.6 % (11.6-17.2); WHITE BLOOD COUNT 10.3 TH/MM3 (4.0-11.0)
[2017-02-06] MEDS: NICOTINE 21 MG/24 HR PATCH T-DERMAL SCH (08:48)
[2017-02-06] MEDS: ARIPiprazole 10 MG TAB PO SCH (08:48)
[2017-02-06 08:49] LABS: HEMO FLAGS AUTO DIFF
--- NOTE | 2017-02-06 09:19 | EKG ---
Date Performed: 02/04/2017 Time Performed: 16:26:51 PTAGE: 56 years EKG: Sinus rhythm MARKED RIGHT AXIS DEVIATION ABNORMAL ECG PREVIOUS TRACING : 02/03/2017 17.34 Compared to prior tracing no significant change DOCTOR: Catherine Cornejo Interpretating Date/Time 02/06/2017 09:19:03
[2017-02-06 09:36] LABS: EOSINOPHILS 2 % (0-4); NEUTROPHIL # MANUAL DIFF 4.7 TH/MM3 (1.8-7.7); PLATELET ESTIMATE SMEAR LOW (NORMAL); PLATELET MORPHOLOGY NORMAL (NORMAL); POLYS (SEG NEUTROPHILS) 46 % (16-70); SCAN/DIFF FINAL DIFF MANUAL; WBC DIFF SAMPLE 100
--- NOTE | 2017-02-06 09:49 | EKG ---
Date Performed: 02/03/2017 Time Performed: 17:34:23 PTAGE: 56 years EKG: SINUS TACHYCARDIA MARKED RIGHT AXIS DEVIATION LOW QRS VOLTAGE IN PRECORDIAL LEADS ABNORMAL ECG Compared to prior tracing no significant change DOCTOR: Catherine Cornejo Interpretating Date/Time 02/06/2017 09:48:52
[2017-02-06] MEDS ORDERED: ARIP1TAB12 PO (11:32)
[2017-02-06] MEDS ORDERED: DULO1CAP2 PO (11:32)
--- NOTE | 2017-02-06 11:37 | HHI.DS ---
Psychiatry Discharge Summary Inpatient Psychiatric care?: Yes Advance Directive: Yes Mental Health AdvanceDirective: No Health Care Proxy: No Admission Admission Date Feb 04, 2017 at 13:11 Admission Diagnosis: (1) Alcohol abuse ICD Code: F10.10 - Alcohol abuse, uncomplicated (2) Major depression ICD Code: F32.9 - Major depressive disorder, single episode, unspecified Brief History Patient is a 56-year-old white male comes here under [place] act signed by Dejah Back and [employer] dated February 03 at 6 PM that document reviewed stating patient states he was having "did thoughts" of wanting to kill himself. It appears patient was having increased depression in the community related to loss of his job losses girlfriend and questionable housing situation. Is also any [employer] party prior to losing his job it appears she had a blood alcohol level of 67 in the ED. Of interest also patient has had prior hospitalizations here for similar episodes. At the present time patient is lying quietly in his bed on J pod nurse Adrienne present throughout session. Patient acknowledges increased depression with decreased sleep decreased concentration and attention increase hopelessness. Though he denies voices or visions with this. There is increased suicidal ideation intent to the plan to [place] [facility] [place]. Patient feels the medication is not working. It appears his last hospitalization here from months ago is discharged on Abilify and Cymbalta. He states he is a goes to the [place] [facility]. Is question about his compliance with his medication. Patient denies any significant physical or sexual abuse. Denies any mental illness in the family of origin. At this time patient does meet criteria for involuntary psychiatric hospitalization on the [place] act I'll do first opinion request second opinion, though I feel he does have capacity to sign for his medications. At this time we'll restart him on his Abilify and his Cymbalta. Some of these increased depressive symptoms appear to be more environmental situational and context. Is also noted he is diabetic and his diabetes was somewhat volatile. We will have hospitalist consult with us also Tobacco Use In Past 30 Days: 5 or More Cigarettes/Day Alcohol Use: Never Hospital Course Patient's hospital course was uneventful there is minimal isolation in the room he did get out though showed minimal socialization in the day room. Is compliant with his medications. There is no signs of withdrawal noted. Today patient denies suicidality homicidality voices or visions. He feels medication is helping his mood was stabilizing. He wishes to be discharged today. He needs to make plans and arrangements to go up to [place] for the of his brother on 02/08. At this time patient reached maximum benefit of this hospitalization patient to be discharged today to himself Rx 1 month follow-up [facility] [place] here in town after return from [place] Results Blood Pressure 120 / 74 Vital Signs Date Time Temp Pulse Resp B/P (MAP) Pulse Ox O2 Delivery O2 Flow Rate FiO2 02/06/17 05:34 97.7 84 18 120/74 (89) 97 02/04/17 06:34 Room Air Laboratory Tests Test 02/03/17 18:00 02/03/17 19:12 02/04/17 17:30 02/05/17 00:52 White Blood Count 18.6 TH/MM3 (4.0-11.0) Platelet Count 86 TH/MM3 (150-450) Lymphocytes % 57 % (9-44) Promyelocytes 1 % (0-0) Platelet Estimate LOW (NORMAL) Prothrombin Time 11.9 SEC (9.8-11.6) Creatinine 1.35 MG/DL (0.60-1.30) Random Glucose 438 MG/DL (74-106) Calcium Level 8.3 MG/DL (8.5-10.1) Sodium Level 135 MEQ/L (136-145) Carbon Dioxide Level 19.6 MEQ/L (21.0-32.0) Estimat Glomerular Filtration Rate 54 ML/MIN (>89) Troponin I LESS THAN 0.02 NG/ML LESS THAN 0.02 NG/ML LESS THAN 0.02 NG/ML Ethyl Alcohol Level 65 MG/DL (0-5) Test 02/05/17 06:24 02/06/17 08:20 Red Blood Count 4.48 MIL/MM3 (4.50-5.90) Platelet Count 66 TH/MM3 (150-450) 74 TH/MM3 (150-450) Lymphocytes (%) (Auto) 58.0 % (9.0-44.0) 57.3 % (9.0-44.0) Lymphocytes # (Auto) 5.6 TH/MM3 (1.0-4.8) 5.9 TH/MM3 (1.0-4.8) Lymphocytes % 60 % (9-44) 49 % (9-44) Myelocytes 1 % (0-0) Platelet Estimate LOW (NORMAL) LOW (NORMAL) Random Glucose 196 MG/DL (74-106) Total Protein 6.3 GM/DL (6.4-8.2) Albumin 3.0 GM/DL (3.4-5.0) Calcium Level 8.2 MG/DL (8.5-10.1) Aspartate Amino Transf (AST/SGOT) 12 U/L (15-37) Chloride Level 110 MEQ/L (98-107) Hemoglobin A1c 10.4 % (4.3-6.0) Troponin I LESS THAN 0.02 NG/ML Laboratory Results Test 02/05/17 06:24 Hemoglobin A1c 10.4 % (4.3-6.0) Summary of Procedures None done Imaging Last Impressions Chest X-Ray 02/03/17 1740 Signed Impressions: Service Date/Time: Friday, February 03, 2017 18:28 - CONCLUSION: The lungs are clear. Christiano Jama MD Pending results at discharge: No Medications # of Antipsychotic meds at D/C: 1 Approp Antipsych med options 1 - Minimum of three failed multiple trials of monotherapy. 2 - Documented plan to taper to monotherapy due to previous use of multiple meds OR cross-taper in progress at D/C. 3 - Documentation of augmentation of Clozapine. 4 - Justification other than those listed in allowable values 1-3, document here : Discharge Discharge Date: Feb 06, 2017 Discharge Diagnosis: (1) Alcohol abuse Diagnosis: Secondary ICD Code: F10.10 - Alcohol abuse, uncomplicated Status: Acute (2) Major depression Diagnosis: Principal ICD Code: F32.9 - Major depressive disorder, single episode, unspecified Status: Acute Pt Condition on Discharge: Stable Discharge Disposition: Discharge Home Discharge Instructions Diet Instructions: As Tolerated, No Restrictions Activities you can perform: Regular-No Restrictions Scheduled Appointment: [facility] Discharge Time > 30 minutes Mental Status Examination Appearance: Appropriate, Disheveled Consciousness: Alert Orientation: x4 Motor Activity: Normal gait (mildly) Speech: Unremarkable Language: Adequate Fund of Knowledge: Adequate Attention and Concentration: Other (fair) Memory: Unremarkable Mood: Sad Affect: Blunt Thought Process & Associations: Intact Thought Content: Appropriate Hallucination Type: None Delusion Type: None Suicidal Ideation: Yes (states would probably take the suicide pill) Suicidal Plan: No Suicidal Intention: No Homicidal Ideation: No Homicidal Plan: No Homicidal Intention: No Insight: Poor Judgment: Poor Discharge/Advance Care Plan Health Problems: (1) Major depression Goals to promote your health * To prevent worsening of your condition and complications * To maintain your health at the optimal level Directions to meet your goals Take your medications as prescribed Follow your dietary instruction Follow activity as directed Keep your appointments as scheduled Take your immunizations and boosters as scheduled If your symptoms worsen call your PCP, if no PCP go to Urgent Care Center or Emergency Room For 05/09 questions related to your inpatient stay or results of tests pending at discharge, please contact Dr. Arcenio Peters at Smoking is Dangerous to Your Health. Avoid second hand smoking Problem Qualifiers (1) Major depression: Qualified Codes: F33.2 - Major depressive disorder, recurrent severe without psychotic features Arcenio Peters MD Feb 06, 2017 11:37
--- NOTE | 2017-02-06 11:54 | HHI.DS ---
Psychiatry Discharge Summary Inpatient Psychiatric care?: Yes Advance Directive: Yes Mental Health AdvanceDirective: No Health Care Proxy: No Admission Admission Date Feb 04, 2017 at 13:11 Admission Diagnosis: (1) Alcohol abuse ICD Code: F10.10 - Alcohol abuse, uncomplicated (2) Major depression ICD Code: F32.9 - Major depressive disorder, single episode, unspecified Brief History Patient is a 56-year-old white male comes here under [place] act signed by Dejah Back and [employer] dated February 03 at 6 PM that document reviewed stating patient states he was having "did thoughts" of wanting to kill himself. It appears patient was having increased depression in the community related to loss of his job losses girlfriend and questionable housing situation. Is also any [employer] party prior to losing his job it appears she had a blood alcohol level of 67 in the ED. Of interest also patient has had prior hospitalizations here for similar episodes. At the present time patient is lying quietly in his bed on J pod nurse Adrienne present throughout session. Patient acknowledges increased depression with decreased sleep decreased concentration and attention increase hopelessness. Though he denies voices or visions with this. There is increased suicidal ideation intent to the [place] [facility]. Patient feels the medication is not working. It appears his last hospitalization here from months ago is discharged on Abilify and Cymbalta. He states he is a goes to the [place] clinic. Is question about his compliance with his medication. Patient denies any significant physical or sexual abuse. Denies any mental illness in the family of origin. At this time patient does meet criteria for involuntary psychiatric hospitalization on the [place] act I'll do first opinion request second opinion, though I feel he does have capacity to sign for his medications. At this time we'll restart him on his Abilify and his Cymbalta. Some of these increased depressive symptoms appear to be more environmental situational and context. Is also noted he is diabetic and his diabetes was somewhat volatile. We will have hospitalist consult with us also Tobacco Use In Past 30 Days: 5 or More Cigarettes/Day Alcohol Use: Never Hospital Course Patient's hospital course was uneventful, patient compliant medication from admission. Patient had a good weekend. States his talk with his girlfriend she is been quite sympathetic with them will help him monitor his medications and is sobriety [facility]. Thus at this time patient reached maximum benefit of this hospitalization will be discharged today to himself with Rx 1 month the follow-up [place] [facility] also to maintain absolute sobriety Results Blood Pressure 120 / 74 Vital Signs Date Time Temp Pulse Resp B/P (MAP) Pulse Ox O2 Delivery O2 Flow Rate FiO2 02/06/17 05:34 97.7 84 18 120/74 (89) 97 02/04/17 06:34 Room Air Laboratory Tests Test 02/03/17 18:00 02/03/17 19:12 02/04/17 17:30 02/05/17 00:52 White Blood Count 18.6 TH/MM3 (4.0-11.0) Platelet Count 86 TH/MM3 (150-450) Lymphocytes % 57 % (9-44) Promyelocytes 1 % (0-0) Platelet Estimate LOW (NORMAL) Prothrombin Time 11.9 SEC (9.8-11.6) Creatinine 1.35 MG/DL (0.60-1.30) Random Glucose 438 MG/DL (74-106) Calcium Level 8.3 MG/DL (8.5-10.1) Sodium Level 135 MEQ/L (136-145) Carbon Dioxide Level 19.6 MEQ/L (21.0-32.0) Estimat Glomerular Filtration Rate 54 ML/MIN (>89) Troponin I LESS THAN 0.02 NG/ML LESS THAN 0.02 NG/ML LESS THAN 0.02 NG/ML Ethyl Alcohol Level 65 MG/DL (0-5) Test 02/05/17 06:24 02/06/17 08:20 Red Blood Count 4.48 MIL/MM3 (4.50-5.90) Platelet Count 66 TH/MM3 (150-450) 74 TH/MM3 (150-450) Lymphocytes (%) (Auto) 58.0 % (9.0-44.0) 57.3 % (9.0-44.0) Lymphocytes # (Auto) 5.6 TH/MM3 (1.0-4.8) 5.9 TH/MM3 (1.0-4.8) Lymphocytes % 60 % (9-44) 49 % (9-44) Myelocytes 1 % (0-0) Platelet Estimate LOW (NORMAL) LOW (NORMAL) Random Glucose 196 MG/DL (74-106) Total Protein 6.3 GM/DL (6.4-8.2) Albumin 3.0 GM/DL (3.4-5.0) Calcium Level 8.2 MG/DL (8.5-10.1) Aspartate Amino Transf (AST/SGOT) 12 U/L (15-37) Chloride Level 110 MEQ/L (98-107) Hemoglobin A1c 10.4 % (4.3-6.0) Troponin I LESS THAN 0.02 NG/ML Laboratory Results Test 02/05/17 06:24 Hemoglobin A1c 10.4 % (4.3-6.0) Summary of Procedures None done Imaging Last Impressions Chest X-Ray 02/03/17 1740 Signed Impressions: Service Date/Time: Friday, February 03, 2017 18:28 - CONCLUSION: The lungs are clear. Christiano Jama MD Pending results at discharge: No Medications # of Antipsychotic meds at D/C: 1 Approp Antipsych med options 1 - Minimum of three failed multiple trials of monotherapy. 2 - Documented plan to taper to monotherapy due to previous use of multiple meds OR cross-taper in progress at D/C. 3 - Documentation of augmentation of Clozapine. 4 - Justification other than those listed in allowable values 1-3, document here : Discharge Discharge Date: Feb 06, 2017 Discharge Diagnosis: (1) Major depression Diagnosis: Principal ICD Code: F32.9 - Major depressive disorder, single episode, unspecified Status: Acute (2) Alcohol abuse Diagnosis: Secondary ICD Code: F10.10 - Alcohol abuse, uncomplicated Status: Acute Pt Condition on Discharge: Stable Discharge Disposition: Discharge Home Discharge Instructions Diet Instructions: As Tolerated, No Restrictions Activities you can perform: Regular-No Restrictions Scheduled Appointment: follow-up outpatient [place] [facility] Discharge Time > 30 minutes Mental Status Examination Appearance: Appropriate, Disheveled Consciousness: Alert Orientation: x4 Motor Activity: Normal gait (mildly) Speech: Unremarkable Language: Adequate Fund of Knowledge: Adequate Attention and Concentration: Other (fair) Memory: Unremarkable Mood: Sad Affect: Blunt Thought Process & Associations: Intact Thought Content: Appropriate Hallucination Type: None Delusion Type: None Suicidal Ideation: Yes (states would probably take the suicide pill) Suicidal Plan: No Suicidal Intention: No Homicidal Ideation: No Homicidal Plan: No Homicidal Intention: No Insight: Poor Judgment: Poor Discharge/Advance Care Plan Health Problems: (1) Major depression Goals to promote your health * To prevent worsening of your condition and complications * To maintain your health at the optimal level Directions to meet your goals Take your medications as prescribed Follow your dietary instruction Follow activity as directed Keep your appointments as scheduled Take your immunizations and boosters as scheduled If your symptoms worsen call your PCP, if no PCP go to Urgent Care Center or Emergency Room For 05/09 questions related to your inpatient stay or results of tests pending at discharge, please contact Dr. Arcenio Peters at Smoking is Dangerous to Your Health. Avoid second hand smoking Problem Qualifiers (1) Major depression: Qualified Codes: F33.2 - Major depressive disorder, recurrent severe without psychotic features Arcenio Peters MD Feb 06, 2017 11:54
== END 2017-02-06 16:00 | disposition home or self-care (01) | DRG 885 ==
LOC: NEPC 17:25 → NEDA 02-04 13:11 → H260 02-04 15:45
PROVIDERS: ADMIT Psychiatry & Neurology Psychiatry; ATTEND Psychiatry & Neurology Psychiatry
DX: F33.2 Major depressive disorder, recurrent severe without psychotic features (principal); C91.10 Chronic lymphocytic leukemia of B-cell type not having achieved remission; R45.851 Suicidal ideations; E11.9 Type 2 diabetes mellitus without complications; D69.59 Other secondary thrombocytopenia; E86.0 Dehydration; E78.00 Pure hypercholesterolemia, unspecified; I10 Essential (primary) hypertension; R07.9 Chest pain, unspecified; R00.0 Tachycardia, unspecified; N28.9 Disorder of kidney and ureter, unspecified; F10.10 Alcohol abuse, uncomplicated; F17.200 Nicotine dependence, unspecified, uncomplicated; F41.0 Panic disorder [episodic paroxysmal anxiety]; Y90.3 Blood alcohol level of 60-79 mg/100 ml; Z56.0 Unemployment, unspecified; Z63.9 Problem related to primary support group, unspecified; Z90.5 Acquired absence of kidney; Z91.5 Personal history of self-harm
CPT/HCPCS: 71010; 80053; 80307; 82550; 82552; 82948; 83036; 83690; 84443; 84484; 85007; 85027; 85610; 85730; 93005; 96361; 96372; 96374; J1815; J2270; J7030; Q0163

== ENCOUNTER 2017-03-06 16:29 | Emergency (ER) | payer OTHER ==
[2017-03-06] MEDS ORDERED: SODIUM CHLORIDE 0.9% FLUSH 10 ML FLUSH IV FLUSH (18:15)
[2017-03-06 18:47] LABS: AUTOMATED NEUTROPHIL # 3.6 TH/MM3 (1.8-7.7); BASOPHIL % 0.3 % (0.0-2.0); EOSINOPHIL # 0.1 TH/MM3 (0-0.4); EOSINOPHIL % 0.9 % (0.0-4.0); HEMOGLOBIN 15.7 GM/DL (13.0-17.0); LYMPH % 68.2 % (9.0-44.0); LYMPHOCYTE # 8.5 TH/MM3 (1.0-4.8); MEAN CELL VOLUME 94.6 FL (80.0-100.0); MEAN CORPUSCULAR HEMOGLOBIN 32.4 PG (27.0-34.0); MEAN CORPUSCULAR HGB CONC 34.2 % (32.0-36.0); MEAN PLATELET VOLUME 8.5 FL (7.0-11.0); MONO % 2.1 % (0.0-8.0); MONOCYTE # 0.3 TH/MM3 (0-0.9); NEUT % 28.5 % (16.0-70.0); PLATELET COUNT 72 TH/MM3 (150-450); RED BLOOD COUNT 4.86 MIL/MM3 (4.50-5.90); WHITE BLOOD COUNT 12.5 TH/MM3 (4.0-11.0)
[2017-03-06 18:56] LABS: BACTERIA, URINE OCC /hpf; BILIRUBIN, URINE NEG (NEG); BLOOD, URINE NEG (NEG); COMMENT (UR) CULT NOT INDICATED; CULTURE IF INDICATED CULT NOT INDICATED; GLUCOSE,URINE 1000 mg/dL (NEG); KETONE, URINE NEG (NEG); NITRITE,URINE NEG (NEG); URINE COLOR LIGHT-YELLOW (YELLW/STRAW); URINE LEUKOCYTE ESTERASE SMALL (NEG)
[2017-03-06 19:00] LABS: APTT (PATIENT) 30.3 SEC (24.3-30.1); INTERNATIONAL NORMALIZED RATIO 1.2 RATIO; PROTHROMBIN TIME - PATIENT 11.9 SEC (9.8-11.6)
[2017-03-06 19:03] LABS: ALBUMIN 3.8 GM/DL (3.4-5.0); ALT (GPT) 37 U/L (12-78); ANION GAP 9 MEQ/L (5-15); AST (GOT) 24 U/L (15-37); BICARBONATE 24.3 MEQ/L (21.0-32.0); BLOOD UREA NITROGEN 12 MG/DL (7-18); CALCIUM 9.5 MG/DL (8.5-10.1); CHLORIDE 103 MEQ/L (98-107); CREATININE 1.12 MG/DL (0.60-1.30); GLOMERULAR FILTRATION RATE 68 ML/MIN (>89); LIPASE 143 U/L (73-393); POTASSIUM 4.1 MEQ/L (3.5-5.1); SODIUM (NA) 136 MEQ/L (136-145)
[2017-03-06 19:04] LABS: HEMO FLAGS AUTO DIFF
[2017-03-06 19:14] LABS: ALKALINE PHOSPHATASE 109 U/L (45-117); TOTAL BILIRUBIN ADULT 0.4 MG/DL (0.2-1.0); TOTAL PROTEIN 7.6 GM/DL (6.4-8.2)
[2017-03-06 19:17] LABS: GLUCOSE,RANDOM 416 MG/DL (74-106)
[2017-03-06 19:37] LABS: LYMPHOCYTES 41 % (9-44); METAMYELOCYTES 1 % (0-1); NEUTROPHIL # MANUAL DIFF 7.4 TH/MM3 (1.8-7.7); POLYS (SEG NEUTROPHILS) 58 % (16-70); SCAN/DIFF FINAL DIFF MANUAL; WBC DIFF SAMPLE 100
[2017-03-06] MEDS ORDERED: HYDROmorphone HCL PF 1 MG/ML VIAL IV PUSH (21:15)
[2017-03-06] MEDS: SODIUM CHLOR 0.9% 1000 ML INJ 1,000 ML IV (22:21)
[2017-03-06] MEDS: KETOROLAC TROMETHAMINE 30 MG/ML (IVP) VIAL IV PUSH (22:21)
[2017-03-06] MEDS: INSULIN HUMAN REGULAR 1,000 UNITS/10 ML VIAL SQ (22:22)
[2017-03-06] MEDS: CIPROFLOXACIN 500 MG TAB PO (22:22)
[2017-03-06] MEDS: cefTRIAXone INJ 1,000 MG in SODIUM CHLORIDE 0.9% INJ 100 ML IV (22:22)
[2017-03-06] MEDS: ONDANSETRON HCL 4 MG/2 ML VIAL IV PUSH (22:44)
[2017-03-06] MEDS: HYDROmorphone HCL PF 2 MG/ML VIAL IV PUSH (22:44)
== END 2017-03-06 23:55 | disposition home or self-care (01) ==
LOC: NEPE 16:29
DX: R10.12 Left upper quadrant pain (principal); N30.00 Acute cystitis without hematuria; K59.00 Constipation, unspecified; K74.60 Unspecified cirrhosis of liver; R16.1 Splenomegaly, not elsewhere classified; I10 Essential (primary) hypertension; E11.9 Type 2 diabetes mellitus without complications; Z72.0 Tobacco use; Z90.5 Acquired absence of kidney
CPT/HCPCS: 74176; 80053; 81001; 83690; 85007; 85027; 85610; 85730; 96365; 96372; 96375; 99285-25

== ENCOUNTER 2017-03-12 16:21 | Emergency (ER) | payer OTHER ==
[~2017-03-12] VITALS: Ht 162.6 cm; Wt 85.0 kg
[~2017-03-12 16:21] MED LIST changes: +ARIP1TAB12 PO; +CIPR-9 PO; +DULO1CAP2 PO
[2017-03-12 16:43] VITALS: BP 158/86; PULSE 109; RESP 18; TEMP 98.7
[2017-03-12 18:00] VITALS: BP 127/75; PULSE 116; RESP 20; O2SAT 94
[2017-03-12] MEDS ORDERED: SODIUM CHLOR 0.9% 1000 ML INJ 1,000 ML IV ONE (18:15)
--- NOTE | 2017-03-12 19:00 | RADRPT ---
EXAM DATE/TIME: 03/12/2017 18:32 [facility] COMPARISON: No previous studies available for comparison. INDICATIONS : Right shoulder and arm pain MEDICAL HISTORY : None. SURGICAL HISTORY : None. ENCOUNTER: Initial ACUITY: 1 day PAIN SCORE: 6/10 LOCATION: Right upper extremity FINDINGS: There is no fracture or subluxation of the right shoulder. Mild osteoarthritis seen of both the acrom ioclavicular and glenohumeral joints. CONCLUSION: Intact right shoulder. Mild degenerative changes. Arcenio Novoa MD on March 12, 2017 at 18:57 Board Certified Radiologist. This report was verified electronically.
--- NOTE | 2017-03-12 19:03 | RADRPT ---
EXAM DATE/TIME: 03/12/2017 18:41 [facility] COMPARISON: No previous studies available for comparison. INDICATIONS : Drinking at the race, fell inj to right shoulder, and head. RADIATION DOSE: 34.14 CTDIvol (mGy) MEDICAL HISTORY : Hypertension. Hiatial hernia, Diabetes SURGICAL HISTORY : Nephrectomy ENCOUNTER: Initial ACUITY: 1 day PAIN SCALE: 7/10 LOCATION: cranial TECHNIQUE: Multiple contiguous axial images were obtained of the head. Using automated exposure control and adj ustment of the mA and/or kV according to patient size, radiation dose was kept as low as reasonably a chievable to obtain optimal diagnostic quality images. DICOM format image data is available electro nically for review and comparison. FINDINGS: CEREBRUM: The ventricles are normal for age. No evidence of midline shift, mass lesion, hemorrhage or acute in farction. No extra-axial fluid collections are seen. POSTERIOR FOSSA: The cerebellum and brainstem are intact. The 4th ventricle is midline. The cerebellopontine angle i s unremarkable. EXTRACRANIAL: The visualized portion of the orbits is intact. SKULL: The calvaria is intact. No evidence of skull fracture. CONCLUSION: Negative noncontrast head CT. Arcenio Novoa MD on March 12, 2017 at 19:00 Board Certified Radiologist. This report was verified electronically.
--- NOTE | 2017-03-12 19:06 | RADRPT ---
EXAM DATE/TIME: 03/12/2017 18:41 [facility] COMPARISON: No previous studies available for comparison. INDICATIONS : Drinking at the race, fell hit right shoulder and head. RADIATION DOSE: 22.10 CTDIvol (mGy) MEDICAL HISTORY : Hypertension. Hiatial hernia, diabetes, SURGICAL HISTORY : Nephrectomy. ENCOUNTER: Initial ACUITY: 1 day PAIN SCALE: 7/10 LOCATION: neck TECHNIQUE: Volumetric scanning of the cervical spine was performed. Multiplanar reconstructions in the sagittal, coronal and oblique axial planes were performed. Using automated exposure control and adjustment o f the mA and/or kV according to patient size, radiation dose was kept as low as reasonably achievable to obtain optimal diagnostic quality images. DICOM format image data is available electronically f or review and comparison. FINDINGS: No fracture or subluxation demonstrated of the cervical spine. There is a degenerative appearing kyph osis centered around C4. Moderate to severe disc space narrowing with uncovertebral and facet osteoar thritis seen at each level, C3/C4-C6/C7. There is moderate bilateral foraminal stenosis at each level . Mild spinal stenosis at C4/C5. CONCLUSION: No fracture or subluxation of the cervical spine. Degenerative kyphosis and multilevel degenerative c hanges as above. Arcenio Novoa MD on March 12, 2017 at 19:02 Board Certified Radiologist. This report was verified electronically.
--- NOTE | 2017-03-12 19:26 | PD ---
HPI . Right shoulder pain Chief Complaint: Fall Time Seen by Provider: 18:10 Travel History International Travel<30 days: No Contact w/Intl Traveler<30days: No Traveled to known affect area: No History of Present Illness HPI This patient presents after becoming intoxicated and falling down. He states that he did strike his head. His complaint is right shoulder pain. The pain is mild. It is exacerbated by movement. The injury occurred just prior to arrival. 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) Hiatal Hernia: Yes Hypertension: Yes Immune Disorder: No Implanted Vascular Access Dvce: No Kidney Stones: No Musculoskeletal: No Neurologic: No Psychiatric: Yes Reproductive: No Respiratory: No Renal Failure: No Sickle Cell Disease: No Thyroid Disease: No Past Surgical History Abdominal Surgery: Yes AICD: No Arteriovenous Shunt: No Cardiac Surgery: No Ear Surgery: No Endocrine Surgery: No Eye Surgery: No Genitourinary Surgery: Yes (Kidney removed) Gynecologic Surgery: No Insulin Pump: No Joint Replacement: No Oral Surgery: No Pacemaker: No Thoracic Surgery: No Tonsillectomy: Yes Other Surgery: Yes (NEPHROSTOMY) Social History Alcohol Use: Yes Tobacco Use: No Substance Use: No Allergies-Medications (Allergen,Severity, Reaction): Coded Allergies: No Known Allergies (Verified Allergy, Unknown, 03/12/17) Reported Meds & Prescriptions Reported Meds & Active Scripts Active Hydrocodone-Acetamin 5-325 mg (Hydrocodone/Acetaminophen) 5 Mg-325 Mg Tablet 1 Tab PO Q6HR PRN Diclofenac Sodium DR (Diclofenac Sodium) 75 Mg Tabdr 75 Mg PO BID PRN Duloxetine DR (Duloxetine HCl) 30 Mg Capdr 30 Mg PO DAILY@2000 Aripiprazole 10 Mg Tab 10 Mg PO DAILY Review of Systems Except as stated in HPI: all other systems reviewed are Neg Physical Exam Narrative GENERAL: Awake and alert and in no acute distress. SKIN: Warm and dry. HEAD: Normocephalic/atraumatic. EYES: Pupils are equal. Extraocular movements are intact. NECK: Normal range of motion. CARDIOVASCULAR: Regular rate and rhythm. RESPIRATORY: Nonlabored respirations. MUSCULOSKELETAL: Right shoulder has no obvious injury. No swelling or bruising. Good range of motion. Distally neurovascularly intact. NEUROLOGICAL: Nonfocal. PSYCHIATRIC: Appropriate mood and affect. Data Data Last Documented VS Vital Signs Date Time Temp Pulse Resp B/P (MAP) Pulse Ox O2 Delivery O2 Flow Rate FiO2 03/12/17 18:00 116 20 127/75 (92) 94 Room Air 03/12/17 16:[address] Brain W/O Iv Contrast(Rout) (03/12/17 18:10) Ct Cerv Spine W/O Contrast (03/12/17 18:10) Shoulder, Complete (>2vws) (03/12/17 18:10) Sodium Chlor 0.9% 1000 Ml Inj (Ns 1000 M (03/12/17 18:15) MDM Medical Decision Making Medical Screen Exam Complete: Yes Emergency Medical Condition: Yes Differential Diagnosis My differential diagnosis of head trauma includes but is not limited to scalp contusion, concussion, intracerebral hemorrhage. Differential diagnosis of extremity trauma includes but is not limited to fracture, sprain or strain, dislocation, contusion Narrative Course This patient presents for evaluation of injuries sustained in a fall. He was intoxicated. He injured his right shoulder but states that he struck his head as well. CT of his head and C-spine were ordered as well as plain films of his right shoulder. Last Impressions Shoulder X-Ray 03/12/171809 Signed Impressions: Service Date/Time: Sunday, March 12, 2017 18:32 - CONCLUSION: Intact right shoulder. Mild degenerative changes. Arcenio Novoa MD Head CT 03/12/171809 Signed Impressions: Service Date/Time: Sunday, March 12, 2017 18:41 - CONCLUSION: Negative noncontrast head CT. Arcenio Novoa MD Cervical Spine CT 03/12/171809 Signed Impressions: Service Date/Time: Sunday, March 12, 2017 18:41 - CONCLUSION: No fracture or subluxation of the cervical spine. Degenerative kyphosis and multilevel degenerative changes as above. Arcenio Novoa MD This patient is stable for discharge to home. Diagnosis Primary Impression: Contusion of right shoulder Qualified Codes: S40.011A - Contusion of right shoulder, initial encounter Additional Impressions: Scalp contusion Qualified Codes: S00.03XA - Contusion of scalp, initial encounter Acute alcohol intoxication Qualified Codes: F10.929 - Alcohol use, unspecified with intoxication, unspecified Patient Instructions: Contusion in Adults (DC), General Instructions Disposition: 01 DISCHARGE HOME Condition: Stable Emily Whitman MD Mar 12, 2017 19:26
== END 2017-03-12 20:09 | disposition home or self-care (01) ==
LOC: NEPE 16:21
DX: S40.011A Contusion of right shoulder, initial encounter (principal); S00.03XA Contusion of scalp, initial encounter; F10.929 Alcohol use, unspecified with intoxication, unspecified; W19.XXXA Unspecified fall, initial encounter
CPT/HCPCS: 70450; 72125; 73030; 99285; J7030

== ENCOUNTER 2017-05-05 19:18 | Emergency (ER) | payer OTHER ==
[~2017-05-05] VITALS: Ht 162.6 cm; Wt 80.0 kg
[~2017-05-05 19:18] MED LIST changes: -CIPR-9 PO
[2017-05-05 19:41] VITALS: BP 151/62; PULSE 99; RESP 18; TEMP 98.5; O2SAT 96
--- NOTE | 2017-05-05 21:34 | PD ---
HPI Chief Complaint: Allergic/Adverse Reaction Time Seen by Provider: 21:32 Travel History International Travel<30 days: No Contact w/Intl Traveler<30days: No Traveled to known affect area: No History of Present Illness HPI patient states persistent itchy skin lesions for last 3 days, unknown of source. 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 He has had this rash is developed on his right arm mostly on the inner arm and forearm, as well as over his left flank area around his belt line area. Patient denies any pain. States that initially there were fluid-filled blisterlike and not itchy. But they have become itchy since. Patient denies any alleviating or aggravating factors. Patient states that he has had no associated factors such as fever, headache, chest pain, neck pain, abdominal pain, back pain, nausea, vomiting, or diarrhea. nkda pmhs c/w hypertension, hyperchol, hiatal hernia, left kidney removed, diabetes, bipolar. 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) Hiatal Hernia: Yes Hypertension: Yes Immune Disorder: No Implanted Vascular Access Dvce: No Kidney Stones: No Musculoskeletal: No Neurologic: No Psychiatric: Yes Reproductive: No Respiratory: No Renal Failure: No Sickle Cell Disease: No Thyroid Disease: No Past Surgical History Abdominal Surgery: Yes AICD: No Arteriovenous Shunt: No Cardiac Surgery: No Ear Surgery: No Endocrine Surgery: No Eye Surgery: No Genitourinary Surgery: Yes (Kidney removed) Gynecologic Surgery: No Insulin Pump: No Joint Replacement: No Oral Surgery: No Pacemaker: No Thoracic Surgery: No Tonsillectomy: Yes Other Surgery: Yes (NEPHROSTOMY) Social History Alcohol Use: Yes Tobacco Use: No Substance Use: No Allergies-Medications (Allergen,Severity, Reaction): Coded Allergies: No Known Allergies (Verified Allergy, Unknown, 05/05/17) Reported Meds & Prescriptions Reported Meds & Active Scripts Active Duloxetine DR (Duloxetine HCl) 30 Mg Capdr 30 Mg PO DAILY@2000 Aripiprazole 10 Mg Tab 10 Mg PO DAILY Reported Metformin (Metformin HCl) 500 Mg Tab 500 Mg PO BIDPC Review of Systems General / Constitutional: No: Fever Eyes: No: Visual changes HENT: No: Headaches Cardiovascular: No: Chest Pain or Discomfort Respiratory: No: Shortness of Breath Gastrointestinal: No: Abdominal Pain Genitourinary: No: Dysuria Musculoskeletal: No: Pain Skin: Positive Rash, Positive Itching Neurologic: No: Weakness Psychiatric: No: Depression Endocrine: No: Polydipsia Hematologic/Lymphatic: No: Easy Bruising Physical Exam Narrative GENERAL: SKIN: Warm and dry. Lesions on his right arm or along C7-C8 and T1 dermatomes, they have varying stages of maturation more consistent with chickenpox than shingles. Also has left flank area around L4 L3 region only on the left side that has lesions maculo-vesicular and maculopapular HEAD: Atraumatic. Normocephalic. EYES: Pupils equal and round. No scleral icterus. No injection or drainage. ENT: No nasal bleeding or discharge. Mucous membranes pink and moist. no uvular edema NECK: Trachea midline. No JVD. no stridor CARDIOVASCULAR: Regular rate and rhythm. RESPIRATORY: No accessory muscle use. Clear to auscultation. Breath sounds equal bilaterally. no wheezing GASTROINTESTINAL: Abdomen soft, non-tender, nondistended MUSCULOSKELETAL: Extremities without clubbing, cyanosis, or edema. No obvious deformities. NEUROLOGICAL: Awake and alert. No obvious cranial nerve deficits. Motor grossly within normal limits. Five out of 5 muscle strength in the arms and legs. Normal speech. PSYCHIATRIC: Appropriate mood and affect; insight and judgment normal. Data Data Last Documented VS Vital Signs Date Time Temp Pulse Resp B/P (MAP) Pulse Ox O2 Delivery O2 Flow Rate FiO2 05/05/17 19:41 98.5 99 18 151/62 (91) 96 Room Air Orders Orders Diphenhydramine Inj (Benadryl Inj) (05/05/17 22:00) Valacyclovir (Valtrex) (05/05/17 22:00) MDM Medical Decision Making Medical Screen Exam Complete: Yes Emergency Medical Condition: Yes Medical Record Reviewed: Yes Differential Diagnosis Shingles versus chickenpox versus cellulitis versus abscess Narrative Course Patient clinically has lesions consistent with shingles as a covering a dermatomal region, or makes these atypical is the fact that there are itchy which is very unusual and uncommon for adult form of chickenpox, and more like the infantile or child type. Diagnosis Primary Impression: Shingles Scripts Valacyclovir (Valtrex) 1,000 Mg Tab 1000 MG PO BID for Mgmt Viral Infection for 10 Days, #20 TAB 0 Refills Prov: Joe Calderon MD 05/05/17 Betamethasone Dipropionate Topical (Betamethasone Dipropionate Topical) 0.05% Lotn 1 APPLIC TOPICAL BID for Dermatoses, #60 ML 2 Refills Prov: Joe Calderon MD 05/05/17 Disposition: 01 DISCHARGE HOME Condition: Stable Joe Calderon MD May 05, 2017 21:34
[2017-05-05] MEDS ORDERED: METF500T PO (21:39)
[2017-05-05] MEDS ORDERED: BETA0.056 TOPICAL (21:58)
[2017-05-05] MEDS ORDERED: VALT1TAB PO (21:58)
[2017-05-05] MEDS ORDERED: valACYclovir HCL 500 MG TAB PO ONE (22:00)
[2017-05-05] MEDS ORDERED: diphenhydrAMINE HCL 50 MG/ML VIAL IM ONE (22:00)
== END 2017-05-05 23:53 | disposition home or self-care (01) ==
LOC: NEPD 19:18
DX: B02.9 Zoster without complications (principal); I10 Essential (primary) hypertension; E78.00 Pure hypercholesterolemia, unspecified; E11.9 Type 2 diabetes mellitus without complications; G20 Parkinson's disease; F31.9 Bipolar disorder, unspecified; Z79.84 Long term (current) use of oral hypoglycemic drugs
CPT/HCPCS: 96372; 99283; J1200

== ENCOUNTER 2017-10-28 10:47 | Observation (INO) ==
[2017-10-28 11:32] LABS: Baso % (Auto) 0.2 % (0.0-2.0); Eos # (Auto) 0.2 th/mm3 (0.0-0.4); Eos % (Auto) 1.3 % (0.0-4.0); Hematocrit 43.2 % (39.0-51.0); Hemoglobin 14.1 gm/dL (13.0-17.0); Lymph # (Auto) 8.9 th/mm3 (1.0-4.8); Mean Corpuscular HGB Conc 32.7 % (32.0-36.0); Mean Corpuscular Hemoglobin 31.5 pg (27.0-34.0); Mean Corpuscular Volume 96.3 fL (80.0-100.0); Mean Platelet Volume 8.1 fL (7.0-11.0); Mono # (Auto) 0.3 th/mm3 (0.0-0.9); Mono % (Auto) 2.3 % (0.0-8.0); Neut # (Auto) 4.9 th/mm3 (1.8-7.7); Neut % (Auto) 34.2 % (16.0-70.0); Platelet Count 83 th/mm3 (150-450); Red Blood Count 4.49 mil/mm3 (4.50-5.90); Red Cell Distribution Width 14.4 % (11.6-17.2); White Blood Count 14.4 th/mm3 (4.0-11.0)
--- NOTE | 2017-10-28 11:36 | XR ---
EXAM DATE: 10/28/2017 11:30 AM EDT AGE/SEX: 57 years / Male INDICATIONS: Chest pain for 3 hours. CLINICAL DATA: This is the patient's initial encounter. Patient reports that signs and symptoms have been present for 1 day and indicates a pain score of 4/10. MEDICAL/SURGICAL HISTORY: . Renal failure, chronic. Hypertension . Nephrectomy, left. Umbilic al hernia repair. Tonsillectomy COMPARISON: [facility] [place], CHEST SINGLE AP, 02/03/2017. . FINDINGS: A single AP view of the chest demonstrates the lungs to be symmetrically aerated without evidence of mass, infiltrate or effusion. The cardiomediastinal contours are unremarkable. Osseous structures a re intact. CONCLUSION: Negative examination. Electronically signed by: Pasquale Mcconnell MD 10/28/2017 11:35 AM EDT
--- NOTE | 2017-10-28 11:43 | ED ---
HPI General Chief complaint: Chest Pain Stated complaint: chest paint/dizziness Time Seen by Provider: 10/28/17 11:01 Source: patient, RN notes reviewed and old records reviewed Mode of arrival: ambulatory History of Present Illness HPI narrative: 57yM presenting with chest pain. The patient states that this morning he was at rest when he began to have substernal chest "pressure"/ pain which was gradual onset, constant, non-radiating, not made better or worse by anything, associated with shortness of breath, dizziness, and diaphoresis. He reports that he's been having "anxiety" for the past few days. Denies cough, nausea or vomiting, or back pain. Has a history of HTN, HLD, DM, and Katharine- Parkinson-White syndrome, no history of CAD, no AICD/ pacemaker or stents. Family history non-contributory. Related Data Home Medications Medication Instructions Recorded Confirmed aripiprazole 30 mg PO DAILY 10/28/17 10/28/17 atorvastatin 20 mg PO DAILY 10/28/17 10/28/17 benzonatate 100 mg PO TID PRN 10/28/17 10/28/17 duloxetine 60 mg PO DAILY 10/28/17 10/28/17 finasteride 5 mg PO DAILY 10/28/17 10/28/17 glipizide 5 mg PO BID 10/28/17 10/28/17 lisinopril 10 mg PO DAILY 10/28/17 10/28/17 metformin 1,000 mg PO BID 10/28/17 10/28/17 omeprazole 20 mg PO DAILY 10/28/17 10/28/17 Allergies Allergy/AdvReac Type Severity Reaction Status Date / Time No Known Allergies Allergy Unverified 10/28/17 11:17 Review of Systems ROS: all other systems reviewed are negative Constitutional Denies fever(s) Eyes Denies blurry vision ENT Denies nasal congestion Cardiovascular Reports chest pain Respiratory Reports dyspnea Gastrointestinal Denies nausea Genitourinary Denies dysuria Musculoskeletal Denies back pain Neurologic Denies confusion Psychiatric Denies confusion PMFSH History History Provided By: Patient Medical History Medical History Anxiety (Acute) COPD (chronic obstructive pulmonary disease) (Acute) Depression (Acute) Diabetes (Acute) Enlarged prostate (Acute) HBP (high blood pressure) (Acute) High cholesterol (Acute) Leukemia (Acute) Surgical History Surgical History Hx of hernia repair (Acute) Hx of kidney removal (Acute) Hx of tonsillectomy (Acute) Social History Social History Substance History: No History of Abuse Second Hand Smoke Exposure: No Smoking Status: Current every day smoker Tobacco Type: Cigarettes How Often Do You Have a Drink Containing Alcohol: Never Recent Travel in [facility] within the Last 8 Weeks: No Recent Out of Country Travel within the Last 8 Weeks: No Immunization History Tetanus Immunization: >5 Years Hx Influenza Vaccine This Season: No Exam Const General: healthy appearing and no acute distress HENMT Head: normocephalic and atraumatic Face and sinus: normal facial exam Eyes General: appearance normal, both eyes and all related structures Pupils: PERRL Chest Chest: normal inspection of the chest Resp Effort & Inspection: normal respiratory effort Auscultation: no rhonchi and no wheezes Cardio Rate: regular rate Rhythm: regular rhythm GI Other: Soft, non-distended, mild diffuse tenderness (patient states this is chronic following his nephrectomy), no guarding or rebound Skin General: no rashes or lesions noted Other: Non-diaphoretic Neuro General: alert, awake, oriented x3 and no focal motor deficits Psych Affect: normal affect Course Initial Documented Vital Signs Temperature 98 F 10/28/17 10:51 Pulse Rate 105 H 10/28/17 10:51 Respiratory Rate 16 10/28/17 10:51 Blood Pressure 138/79 10/28/17 10:51 Pulse Oximetry 99 10/28/17 10:51 Last Documented Vital Signs Temperature 97.8 F 10/28/17 10:59 Pulse Rate 99 H 10/28/17 12:58 Respiratory Rate 18 10/28/17 12:58 Blood Pressure 127/76 10/28/17 12:58 Pulse Oximetry 97 10/28/17 12:58 Clinical Decision Support HEART Score Questions History: Moderately suspicious EKG: Normal Age: 45-64 years Risk Factors: 3 or more Risk Factors or Hx of Atherosclerotic Disease Initial Troponin: Normal Limit Heart Score HEART Score: 4 Medical Decision Making MDM Narrative Medical decision making narrative: Assessment: 57yM presenting with chest pain and dyspnea Plan: EKG and monitor CXR Labs ASA Addendum: Patient reports his chest pain improved with sublingual nitro. His initial troponin is negative but HEART score is 4, multiple risk factors for CAD. He will need observation in chest pain center for cardiac monitoring, serial troponins, cardiology eval. He understands and agrees with pain. Medical Screen Exam Complete: Yes Emergency Medical Condition: Yes Differential Diagnosis Differential Diagnosis: Differential diagnosis includes, but is not limited to: ACS, arrhythmia, pericarditis, pleuritis, pneumonia, pleural effusion Medical Records Medical records reviewed: Yes I reviewed the patient's medical records. Lab Data Lab results reviewed: Yes I reviewed the patient's lab results. Result diagrams: 10/28/17 11:18 10/28/17 11:18 Lab Results 10/28/17 10/28/17 10/28/17 Range/Units 11:18 11:18 11:18 WBC 14.4 H (4.0-11.0) th/mm3 RBC 4.49 L (4.50-5.90) mil/mm3 Hgb 14.1 (13.0-17.0) gm/dL Hct 43.2 (39.0-51.0) % MCV 96.3 (80.0-100.0) fL MCH 31.5 (27.0-34.0) pg MCHC 32.7 (32.0-36.0) % RDW 14.4 (11.6-17.2) % Plt Count 83 L (150-450) th/mm3 MPV 8.1 (7.0-11.0) fL Prelim Diff (Auto) Slide review pending Neut % (Auto) 34.2 (16.0-70.0) % Lymph % (Auto) 62.0 H (9.0-44.0) % [place] % (Auto) 2.3 (0.0-8.0) % Eos % (Auto) 1.3 (0.0-4.0) % Baso % (Auto) 0.2 (0.0-2.0) % Neut # (Auto) 4.9 (1.8-7.7) th/mm3 Lymph # (Auto) 8.9 H (1.0-4.8) th/mm3 [place] # (Auto) 0.3 (0.0-0.9) th/mm3 Eos # (Auto) 0.2 (0.0-0.4) th/mm3 Baso # (Auto) 0.0 (0.0-0.2) th/mm3 WBC Differential Manual diff final Seg Neuts % (Manual) 33 (16-70) % Lymphocytes % (Manual) 63 H (9-44) % Monocytes % (Manual) 2 (0-8) % Eosinophils % (Manual) 2 (0-4) % Abs Neuts (Manual) 4.8 (1.8-7.7) th/mm3 Differential Comment . Platelet Estimate Low L (Normal) Platelet Morphology Normal (Normal) PT 12.0 H (9.8-11.6) sec INR 1.2 Ratio Sodium 137 (136-145) meq/L Potassium 4.2 (3.5-5.1) meq/L Chloride 102 (98-107) meq/L Carbon Dioxide 22.6 (21.0-32.0) meq/L Anion Gap 12 (5-15) meq/L BUN 14 (7-18) mg/dL Creatinine 1.07 (0.60-1.30) mg/dL Estimated GFR 71 L (>89) mL/min POC Glucose (68-110) mg/dl Random Glucose 284 H (74-106) mg/dL Calcium 8.4 L (8.5-10.1) mg/dL Magnesium 2.0 (1.5-2.5) mg/dL Total Bilirubin 0.5 (0.2-1.0) mg/dL AST 18 (15-37) U/L ALT 32 (12-78) U/L Alkaline Phosphatase 97 (45-117) U/L Total Creatine Kinase 73 (39-308) U/L Troponin I Less than 0.02 L (0.02-0.05) ng/mL B-Natriuretic Peptide (0-100) pg/mL Total Protein 7.1 (6.4-8.2) g/dL Albumin 3.4 (3.4-5.0) g/dL TSH 0.488 (0.358-3.740) uIU/mL 10/28/17 10/28/17 Range/Units 11:18 13:51 WBC (4.0-11.0) th/mm3 RBC (4.50-5.90) mil/mm3 Hgb (13.0-17.0) gm/dL Hct (39.0-51.0) % MCV (80.0-100.0) fL MCH (27.0-34.0) pg MCHC (32.0-36.0) % RDW (11.6-17.2) % Plt Count (150-450) th/mm3 MPV (7.0-11.0) fL Prelim Diff (Auto) Neut % (Auto) (16.0-70.0) % Lymph % (Auto) (9.0-44.0) % [place] % (Auto) (0.0-8.0) % Eos % (Auto) (0.0-4.0) % Baso % (Auto) (0.0-2.0) % Neut # (Auto) (1.8-7.7) th/mm3 Lymph # (Auto) (1.0-4.8) th/mm3 [place] # (Auto) (0.0-0.9) th/mm3 Eos # (Auto) (0.0-0.4) th/mm3 Baso # (Auto) (0.0-0.2) th/mm3 WBC Differential Seg Neuts % (Manual) (16-70) % Lymphocytes % (Manual) (9-44) % Monocytes % (Manual) (0-8) % Eosinophils % (Manual) (0-4) % Abs Neuts (Manual) (1.8-7.7) th/mm3 Differential Comment Platelet Estimate (Normal) Platelet Morphology (Normal) PT (9.8-11.6) sec INR Ratio Sodium (136-145) meq/L Potassium (3.5-5.1) meq/L Chloride (98-107) meq/L Carbon Dioxide (21.0-32.0) meq/L Anion Gap (5-15) meq/L BUN (7-18) mg/dL Creatinine (0.60-1.30) mg/dL Estimated GFR (>89) mL/min POC Glucose 133 H (68-110) mg/dl Random Glucose (74-106) mg/dL Calcium (8.5-10.1) mg/dL Magnesium (1.5-2.5) mg/dL Total Bilirubin (0.2-1.0) mg/dL AST (15-37) U/L ALT (12-78) U/L Alkaline Phosphatase (45-117) U/L Total Creatine Kinase (39-308) U/L Troponin I (0.02-0.05) ng/mL B-Natriuretic Peptide 6 (0-100) pg/mL Total Protein (6.4-8.2) g/dL Albumin (3.4-5.0) g/dL TSH (0.358-3.740) uIU/mL Imaging Data Radiologist's impression: Chest X-Ray 10/28/17 11:12 CONCLUSION: Negative examination. ECG Data Attestation: I personally reviewed and interpreted this ECG as follows: Interpretation: Rate: 100 BPM Rhythm: Sinus [place]: Normal Intervals: Normal intervals, no blocks, QTc 380 ms Q waves: None T waves: Upright, no inversions ST segments: No elevations or depressions Impression: Non-specific EKG, no delta waves, no changes as compared to EKG from 02/04/2017. Discharge Plan Discharge Disposition Patient Disposition: 30 Still Patient Discharge Condition Condition: Stable Discharge Details Diagnosis: Chest pain Physicians Team ED Provider: Joy Castro Primary Care Provider: [facility],Physician 's Rxs /Orders / Referrals /Forms Prescriptions: No Action atorvastatin 20 mg Tablet 20 mg PO DAILY RF: 0 benzonatate 100 mg Capsule 100 mg PO TID PRN (Reason: Pain) RF: 0 metformin 1,000 mg Tablet 1,000 mg PO BID RF: 0 lisinopril 10 mg Tablet 10 mg PO DAILY RF: 0 finasteride 5 mg Tablet 5 mg PO DAILY RF: 0 glipizide 5 mg Tablet 5 mg PO BID RF: 0 duloxetine 60 mg Capsule,Delayed Release(Dr/Ec) 60 mg PO DAILY RF: 0 omeprazole 20 mg Capsule,Delayed Release(Dr/Ec) 20 mg PO DAILY RF: 0 aripiprazole 30 mg Tablet 30 mg PO DAILY RF: 0 Discharge Instructions Patient Printed Instructions: Chest Pain (ED) Discharge Interventions Interventions: Vital Signs Last Done: 10/28/17 10:59 Status ED Status: With Doctor
[2017-10-28 11:47] LABS: INR 1.2 Ratio
[2017-10-28 11:50] LABS: Alanine Aminotransferase 32 U/L (12-78); Albumin 3.4 g/dL (3.4-5.0); Anion Gap 12 meq/L (5-15); Aspartate Aminotransferase 18 U/L (15-37); Blood Urea Nitrogen 14 mg/dL (7-18); Calcium 8.4 mg/dL (8.5-10.1); Carbon Dioxide 22.6 meq/L (21.0-32.0); Chloride 102 meq/L (98-107); Glomerular Filtration Rate 71 mL/min (>89); Glucose,Random 284 mg/dL (74-106); Potassium 4.2 meq/L (3.5-5.1); Sodium 137 meq/L (136-145)
[2017-10-28 12:00] LABS: Alkaline Phosphatase 97 U/L (45-117); Thyroid Stimulating Hormone 0.488 uIU/mL (0.358-3.740); Total Protein 7.1 g/dL (6.4-8.2)
[2017-10-28 12:20] LABS: Creatine Kinase 73 U/L (39-308)
[2017-10-28 12:30] LABS: Eosinophils 2 % (0-4); Lymphocytes 63 % (9-44); Monocytes 2 % (0-8); Platelet Morphology Normal (Normal)
[2017-10-28] MEDS ORDERED: Acetaminophen 500 MG Tablet PO PRN (14:02)
[2017-10-28] MEDS ORDERED: Benzonatate 100 MG Capsule PO PRN (15:07)
[2017-10-28 15:12] LABS: Creatine Kinase 68 U/L (39-308)
--- NOTE | 2017-10-28 15:27 | P.HPCA ---
History of Present Illness Primary Care Physician: Physician 's [facility] Chief Complaint: chest pain History of Present Illness: This is a 57-year-old male with history of hypertension, hyperlipidemia, diabetes, tobacco abuse, chronic lymphocytic leukemia which he states has been in remission for years that presents to ED to be evaluated for chest pain. Patient states he developed a central chest tightness while driving home yesterday. States the discomfort is still there. The intensity waxes and wanes but is done nothing in particular to improve it or to worsen. States he had a cardiac workup in the at which time he was diagnosed with Katharine- Parkinson-White syndrome but really has not had much a workup since. 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 States he was a little short of breath yesterday. He was nauseous. Denies diaphoresis. Also history of a left nephrectomy. Patient smokes 1 pack per week for the last 7 months but prior that he smoked three-quarter pack of cigarettes daily for 30 years. He states he has had no alcohol for over a year. Denies illicit drug use. States he lives with his fiance. Denies family history of CAD. - Diagnosis (1) Chest pain (2) HTN (hypertension) (3) Diabetes (4) HLD (hyperlipidemia) (5) Tobacco abuse (6) CLL (chronic lymphocytic leukemia) Review of Systems General: Patient denies fevers, chills, and recent travel. HEENT: Patient denies headache, sore throat, difficulty swallowing. Cardiovascular: Has the chest discomfort as mentioned above. Denies sensation of heart beating rapidly or irregularly. No syncope. Denies diaphoresis. Respiratory: He was short of breath. Denies inspirational chest discomfort. Denies coughing wheezing or hemoptysis. GI: He was nauseous. Patient denies vomiting, diarrhea, abdominal pain, bloody stools. Musculoskeletal: Patient denies joint pain or edema. Denies calf pain or edema. Neurovascular: Patient denies numbness, tingling, weakness in extremities. Denies headache. Endocrine: Denies polyuria and polydipsia. Hematologic: Denies easy bruising. Skin: Denies rash or itching. PMFSH - History History Provided By: Patient - Medical History Medical History: Medical History (Last Reviewed 10/28/17 @ 11:46 by Joy Castro DO) Anxiety COPD (chronic obstructive pulmonary disease) Depression Diabetes Enlarged prostate HBP (high blood pressure) High cholesterol Leukemia - Surgical History Surgical History: Surgical History (Last Reviewed 10/28/17 @ 11:46 by Joy Castro DO) Hx of hernia repair Hx of kidney removal Hx of tonsillectomy - Tobacco History Second Hand Smoke Exposure: Yes Tobacco Use In Past 30 Days: Yes Smoking Status: Current every day smoker Tobacco Type: Cigarettes - Alcohol History How Often Do You Have a Drink Containing Alcohol: Never - Substance Use History Substance History: No History of Abuse - Travel History Recent Travel in the [place] Within the Last 8 Weeks: No Recent Travel Out of the Country Within the Last 8 Weeks: No - Immunization History Tetanus Immunization: >5 Years Hx Influenza Vaccine This Season: No Medications and Allergies Active Medications: Active Medications Acetaminophen (Tylenol) 500 mg PO Q4H PRN PRN Reason: HEADACHE Albuterol (Duoneb Neb (Prn)) 1 ampul NEB Q4HR NEB PRN PRN Reason: SHORTNESS OF BREATH/WHEEZING Aripiprazole (Abilify) 30 mg PO DAILY TRAE Aspirin (Aspirin) 325 mg PO DAILY TRAE Atorvastatin Calcium (Lipitor) 20 mg PO DAILY TRAE Benzonatate (Tessalon Perles) 100 mg PO TID PRN PRN Reason: Pain Clonidine HCl (Catapres) 0.1 mg PO Q6H PRN PRN Reason: SBP >165 OR DBP > 110 Insulin Human Regular (Novolin R Correctional Sugar Inj) 0 units SQ ACHS TRAE; Protocol Nitroglycerin (Nitrostat Sl) 0.4 mg SL Q5M PRN PRN Reason: CHEST PAIN Sodium Chloride (Ns Flush) 2 ml IV.FLUSH UNSCH PRN PRN Reason: FLUSH AFTER USING IV ACCESS Last Admin: 10/28/17 11:19 Dose: 2 ml Sodium Chloride (Ns Flush) 2 ml IV.FLUSH BID TRAE Sodium Chloride (Ns Flush) 2 ml IV.FLUSH PRN PRN PRN Reason: FLUSH AFTER USING IV ACCESS Allergies Allergy/AdvReac Type Severity Reaction Status Date / Time No Known Allergies Allergy Unverified 10/28/17 11:17 Home Medications Medication Instructions Recorded Confirmed Type aripiprazole 30 mg PO DAILY 10/28/17 10/28/17 History atorvastatin 20 mg PO DAILY 10/28/17 10/28/17 History benzonatate 100 mg PO TID PRN 10/28/17 10/28/17 History duloxetine 60 mg PO DAILY 10/28/17 10/28/17 History finasteride 5 mg PO DAILY 10/28/17 10/28/17 History glipizide 5 mg PO BID 10/28/17 10/28/17 History lisinopril 10 mg PO DAILY 10/28/17 10/28/17 History metformin 1,000 mg PO BID 10/28/17 10/28/17 History omeprazole 20 mg PO DAILY 10/28/17 10/28/17 History Exam Vital signs: Vital Signs 10/28/17 10:51 10/28/17 10:59 10/28/17 11:12 Temperature 98 F 97.8 F Pulse Rate 105 H 103 H 102 H Respiratory Rate 16 21 Blood Pressure 138/79 125/78 Pulse Oximetry 99 97 97 10/28/17 12:58 Temperature Pulse Rate 99 H Respiratory Rate 18 Blood Pressure 127/76 Pulse Oximetry 97 Intake & Output 10/27/17 10/28/17 10/28/17 18:59 06:59 18:59 Weight 85.27 kg Other: Weight On Admission 85.27 kg Narrative: GENERAL: This is a well-nourished, well-developed patient, in no apparent distress. Patient speaks in clear complete sentences. Patient is pleasant. HEENT: Head is atraumatic and normocephalic. Neck is supple without lymphadenopathy and trachea is midline. No JVD or carotid bruits. CARDIOVASCULAR: Regular rate and rhythm without murmurs, gallops, or rubs. RESPIRATORY: Clear to auscultation. Breath sounds equal bilaterally. No wheezes , rales, or rhonchi. Chest wall is tender, palpating the area worsens the pain that brought him to the ED. No use of accessory muscles. GASTROINTESTINAL: Abdomen is nontender, nondistended. Abdomen soft. No obvious pulsatile mass or bruit. No CVA tenderness. Strong femoral pulses bilaterally. Normal bowel sounds in all quadrants. MUSCULOSKELETAL: Patient is moving upper and lower extremities freely. No calf tenderness or edema, no Homans sign. Strong pulses in upper and lower extremities. NEUROLOGICAL: Patient is alert and oriented. Cranial nerves 2-12 are grossly intact. No focal deficits and speech is clear. SKIN: No rash and turgor is normal. Results 10/28/17 11:18 10/28/17 11:18 Cardiac Enzymes 10/28/17 10/28/17 Range/Units 11:18 11:18 AST 18 (15-37) U/L Troponin I Less than 0.02 L (0.02-0.05) ng/mL B-Natriuretic Peptide 6 (0-100) pg/mL Coagulation 10/28/17 10/28/17 Range/Units 11:18 11:18 PT 12.0 H (9.8-11.6) sec B-Natriuretic Peptide 6 (0-100) pg/mL CBC 10/28/17 Range/Units 11:18 WBC 14.4 H (4.0-11.0) th/mm3 RBC 4.49 L (4.50-5.90) mil/mm3 Hgb 14.1 (13.0-17.0) gm/dL Hct 43.2 (39.0-51.0) % Plt Count 83 L (150-450) th/mm3 Neut # (Auto) 4.9 (1.8-7.7) th/mm3 Lymph # (Auto) 8.9 H (1.0-4.8) th/mm3 [place] # (Auto) 0.3 (0.0-0.9) th/mm3 Eos # (Auto) 0.2 (0.0-0.4) th/mm3 Baso # (Auto) 0.0 (0.0-0.2) th/mm3 Comprehensive Metabolic Panel 10/28/17 Range/Units 11:18 Sodium 137 (136-145) meq/L Potassium 4.2 (3.5-5.1) meq/L Chloride 102 (98-107) meq/L Carbon Dioxide 22.6 (21.0-32.0) meq/L BUN 14 (7-18) mg/dL Creatinine 1.07 (0.60-1.30) mg/dL Calcium 8.4 L (8.5-10.1) mg/dL AST 18 (15-37) U/L ALT 32 (12-78) U/L Alkaline Phosphatase 97 (45-117) U/L Total Protein 7.1 (6.4-8.2) g/dL Albumin 3.4 (3.4-5.0) g/dL Intake and Output 10/28/17 10/28/1715/18 06:59 14:59 22:59 Other: Weight 85.275 kg 85.27 kg Weight On Admission 85.27 kg Patient Weight 10/29/17 06:59 Weight 85.27 kg EKG interpretations - EKG EKG shows: tachycardia (Initial EKG sinus tachycardia with rate of [address] segment depressions or elevations.) Caprini VTE Risk Assessment Caprini VTE Risk Assessment: No/Low Risk (score <= 1) Caprini Risk Assessment Model: Point Value = 1 Point Value = 2 Point Value = 3 Point Value = 5 Age 41-60 Minor surgery BMI > 25 kg/m2 Swollen legs Varicose veins or History of unexplained or recurrent spontaneous Oral contraceptives or hormone replacement Sepsis (< 1 month) Serious lung disease, including pneumonia (< 1 month) Abnormal pulmonary function Acute myocardial infarction Congestive heart failure (< 1 month) History of inflammatory bowel disease Medical patient at bed rest Age 61-74 Arthroscopic surgery Major open surgery (> 45 min) Laparoscopic surgery (> 45 min) Malignancy Confined to bed (> 72 hours) Immobilizing plaster cast Central venous access Age >= 75 History of VTE Family history of VTE Factor V Leiden Prothrombin [id number] Lupus anticoagulant Anticardiolipin antibodies Elevated serum homocysteine Heparin-induced thrombocytopenia Other congenital or acquired thrombophilia Stroke (< 1 month) Elective arthroplasty Hip, pelvis, or leg fracture Acute spinal cord injury (< 1 month) Prophylaxis Regimen: Total Risk Factor Score Risk Level Prophylaxis Regimen 0-1 Low Early ambulation 2 Moderate Order ONE of the following: *Sequential Compression Device (SCD) *Heparin 5000 units SQ BID 3-4 Higher Order ONE of the following medications: *Heparin 5000 units SQ TID *Enoxaparin/Lovenox 40 mg SQ daily (WT < 150 kg, CrCl > 30 mL/min) *Enoxaparin/Lovenox 30 mg SQ daily (WT < 150 kg, CrCl > 10-29 mL/min) *Enoxaparin/Lovenox 30 mg SQ BID (WT < 150 kg, CrCl > 30 mL/min) AND/OR *Sequential Compression Device (SCD) 5 or more Highest Order ONE of the following medications: *Heparin 5000 units SQ TID (Preferred with Epidurals) *Enoxaparin/Lovenox 40 mg SQ daily (WT < 150 kg, CrCl > 30 mL/min) *Enoxaparin/Lovenox 30 mg SQ daily (WT < 150 kg, CrCl > 10-29 mL/min) *Enoxaparin/Lovenox 30 mg SQ BID (WT < 150 kg, CrCl > 30 mL/min) AND *Sequential Compression Device (SCD) Assessment and Plan - Assessment (1) Chest pain Code(s): R07.9 - Chest pain, unspecified Status: Acute (2) HTN (hypertension) Code(s): I10 - Essential (primary) hypertension Status: Acute (3) Diabetes Code(s): E11.9 - Type 2 diabetes mellitus without complications Status: Acute (4) HLD (hyperlipidemia) Code(s): E78.5 - Hyperlipidemia, unspecified Status: Acute (5) Tobacco abuse Code(s): Z72.0 - Tobacco use Status: Acute (6) CLL (chronic lymphocytic leukemia) Code(s): C91.90 - Lymphoid leukemia, unspecified not having achieved remission Status: Acute - Plan * Chest pain: Patient will continue to have serial cardiac enzymes and EKGs for ruling out purposes. He will be seen by Dr. Horn of cardiology in the chest pain center tomorrow. He will have a Lexiscan and would be discharged home if the stress test is nonischemic with instructions to follow-up with his physician at the [place]. Return to ED for interval issues. * Hypertension: Continue medication. * Hyperlipidemia: Continue medication. * Diabetes: Follow diabetic diet. Sliding scale insulin coverage while in chest pain center. Resume medication at discharge. * Chronic lymphocytic leukemia: Patient is to continue follow-up with his physician. * Tobacco abuse: Patient counseled on importance of smoking cessation. Patient is stable at this time. He is agreeable to this plan. H&P: Quality - VTE Deep Vein Thrombosis/Pulmonary Embolism Present on Admission: Yes
[2017-10-28] MEDS: Insulin NovoLIN Regular Correctional Sugar Inj SQ SCH ×2 (17:24→21:25)
[2017-10-28 18:16] LABS: Creatine Kinase 67 U/L (39-308)
--- NOTE | 2017-10-28 21:56 | ECG ---
Date Performed: 10/28/2017 Time Performed: 17:12:03 PTAGE: 57 years EKG: SINUS TACHYCARDIA BORDERLINE RIGHT AXIS DEVIATION ABNORMAL RHYTHM ECG PREVIOUS TRACING : 10/28/2017 14.45 DOCTOR: Radha Bob Interpretating Date/Time 10/28/2017 21:53:53
--- NOTE | 2017-10-28 22:00 | ECG ---
Date Performed: 10/28/2017 Time Performed: 14:45:23 PTAGE: 57 years EKG: SINUS TACHYCARDIA POSSIBLE RIGHT VENTRICULAR HYPERTROPHY ABNORMAL ECG PREVIOUS TRACING : 10/28/2017 11.08 DOCTOR: Radha Bob Interpretating Date/Time 10/28/2017 21:56:57
--- NOTE | 2017-10-28 22:05 | ECG ---
Date Performed: 10/28/2017 Time Performed: 11:08:36 PTAGE: 57 years EKG: SINUS TACHYCARDIA POSSIBLE RIGHT VENTRICULAR HYPERTROPHY ABNORMAL ECG INTERPRETATION BASED ON A DEFAULT AGE OF 40 YEARS PREVIOUS TRACING : 02/04/2017 16.26 DOCTOR: Radha Bob Interpretating Date/Time 10/28/2017 22:01:59
[2017-10-29] MEDS ORDERED: Lisinopril 10 MG Tablet PO SCH (09:00)
[2017-10-29] MEDS ORDERED: Pantoprazole Sodium 20 MG DR Tablet PO SCH (09:00)
[2017-10-29] MEDS ORDERED: Finasteride 5 MG Tablet PO SCH (09:00)
[2017-10-29] MEDS ORDERED: Duloxetine 60 MG DR Capsule PO SCH (09:00)
[2017-10-29] MEDS ORDERED: Aspirin 325 MG Tablet PO SCH (09:00)
[2017-10-29] MEDS ORDERED: Regadenoson Inj 0.4 MG/5 ML Syringe IV.PUSH ONE (09:59)
--- NOTE | 2017-10-29 11:55 | NM ---
EXAM DATE: 10/29/2017 11:43 AM EDT AGE/SEX: 57 years / Male INDICATIONS:Angina. . Substernal chest pain. CLINICAL DATA: This is the patient's initial encounter. Patient reports that signs and symptoms have been present for 1 day and indicates a pain score of 6/10. MEDICAL/SURGICAL HISTORY: Chronic obstructive pulmonary disease. Diabetes mellitus type II. H ypertension. Tonsillectomy. COMPARISON: No prior exams available for comparison. DOSE: 8.5 mCi Tc 99m Myoview at rest 25.4 mCi [id number] at stress 0.4 mg Lexiscan STRESS SYMPTOMS: Dyspnea and lightheaded. EJECTION FRACTION: 69 % TECHNIQUE: The patient underwent pharmacologic stress with infusion of prescribed dose. Continuous ECG tracing was monitored during stress. Gated SPECT imaging was performed after stress and conventi onal SPECT imaging was performed at rest. The examination was performed on a SPECT/CT scanner, both attenuation and non-corrected datasets were reviewed. FINDINGS: Distribution: The maximum perfused segment at stress is in the anterior wall. Perfusion Study: The pattern of perfusion at stress is within normal limits. Gated Study: There are intact wall motion and wall thickening without hypokinetic or dyskinetic segm ents. The ejection fraction is calculated at 69%. RISK CATEGORY: Low (<1% Annual Motality Rate) CONCLUSION: 1. Negative examination. Electronically signed by: Pasquale Mcconnell MD 10/29/2017 11:54 AM EDT
[2017-10-29 11:59] VITALS: BP 132/80; PULSE 95; RESP 20; TEMP 98.2; O2SAT 98
[2017-10-29] MEDS: Insulin NovoLIN Regular Correctional Sugar Inj SQ SCH (12:35)
--- NOTE | 2017-10-29 14:09 | TR ---
Date Performed: 10/29/2017 Time Performed: 10:25:28 DOCTOR: Viet Horn DRUG LIST: CLINICAL HISTORY: REASON FOR TEST: CHEST PAIN REASON FOR ENDING: OBSERVATION: CONCLUSION: COMMENTS: Lexiscan stress test was performed under standard four minute protocol. Radionuclide was injected one minute prior to ending the test. No electrocardiographic abormalities were present t o suggest ischemia. Nuclear imaging and interpretation are pending.
== END 2017-10-29 16:21 | disposition home or self-care (01) ==
LOC: NEDA 10:47 → NEPE 10:47 → NEDA 14:52 → NEPGCP 15:34